=== PATIENT | male | born 1960 | race Caucasian/White ===

== ENCOUNTER 2016-06-24 10:10 | Emergency (ER) | payer OTHER ==
[~2016-06-24] VITALS: Ht 190.5 cm; Wt 100.0 kg
[~2016-06-24 10:10] MED LIST: ASPI81TA82 PO; LISI-360 PO
[2016-06-24 10:11] VITALS: BP 140/78; PULSE 95; RESP 15; TEMP 98.1; O2SAT 97
[2016-06-24] MEDS ORDERED: LISI10TA3 PO (11:16)
[2016-06-24] MEDS ORDERED: NAPR500 PO (11:43)
[2016-06-24] MEDS ORDERED: CEPH-460 PO (11:43)
[2016-06-24] MEDS ORDERED: BACT800T5 PO (11:43)
--- NOTE | 2016-06-24 11:43 | PD ---
HPI Chief Complaint: Skin Problem Time Seen by Provider: 11:41 Travel History International Travel<30 days: No Contact w/Intl Traveler<30days: No Traveled to known affect area: No History of Present Illness HPI 56-year-old male with no significant medical history presents to the emergency department for evaluation of a lesion on the proximal aspect of his dorsal right third digit with associated erythema and edema extending onto the hand. Patient states he noticed this this morning. States it is painful, rates the pain a 7 out of 10. Denies any trauma. Denies IV drug use. Does not recall getting bitten. 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 He is up-to-date on his tetanus vaccination. No fever or chills. No other symptoms to report. PFSH Past Medical History Cardiovascular Problems: Yes (htn) Diminished Hearing: No Hypertension: Yes Integumentary: Yes (PSORIASIS) Tetanus Vaccination: Unknown Past Surgical History Other Surgery: Yes (BILAT. ARTHROSCOPIC BILAT KNEE SURGERIES AND RIGHT HAND SURGERY) Social History Alcohol Use: Yes (occ) Tobacco Use: Yes (1/2 PPD) Substance Use: No Allergies-Medications (Allergen,Severity, Reaction): Coded Allergies: No Known Allergies (Verified , 06/24/16) Reported Meds & Prescriptions Reported Meds & Active Scripts Active Naprosyn (Naproxen) 500 Mg Tab 500 Mg PO BID PRN Keflex (Cephalexin) 500 Mg Cap 500 Mg PO Q6H 5 Days Bactrim DS (Sulfamethoxazole-Trimethoprim) 800-160 Mg Tab 1 Tab PO BID Reported Lisinopril 10 Mg Tab 10 Mg PO DAILY Review of Systems Except as stated in HPI: all other systems reviewed are Neg Physical Exam Narrative GENERAL: Well-nourished male patient, in no acute distress SKIN: Warm and dry. Subcentimeter scabbed lesion on the proximal aspect of the dorsal right third digit. There is erythema extending extending 8 cm proximal onto the dorsal hand. It extends 6 cm wide. There is no fluctuance. HEAD: Atraumatic. Normocephalic. EYES: Pupils equal and round. No scleral icterus. No injection or drainage. ENT: No nasal bleeding or discharge. Mucous membranes pink and moist. NECK: Trachea midline. No JVD. CARDIOVASCULAR: Regular rate and rhythm. No murmur appreciated. RESPIRATORY: No accessory muscle use. Clear to auscultation. Breath sounds equal bilaterally. MUSCULOSKELETAL: No obvious deformities. No clubbing. No cyanosis. Patient has full flexion and extension of the affected digit. He can fully extend the right third digit against resistance as well as flex. NEUROLOGICAL: Awake and alert. No obvious cranial nerve deficits. Motor grossly within normal limits. Normal speech. PSYCHIATRIC: Appropriate mood and affect; insight and judgment normal. Data Data Last Documented VS Vital Signs Date Time Temp Pulse Resp B/P Pulse Ox O2 Delivery O2 Flow Rate FiO2 06/24/16 10:11 98.1 95 15 140/78 97 Orders Ibuprofen (Motrin) (06/24/16 12:00) [facility] Medical Decision Making Medical Screen Exam Complete: Yes Emergency Medical Condition: Yes Medical Record Reviewed: Yes Differential Diagnosis Cellulitis versus abscess versus tenosynovitis versus erysipelas versus insect bite versus local reaction Narrative Course 56-year-old male presents to the emergency department for evaluation of erythema and edema to the right hand. Patient does have what appears to be a scab lesion on the dorsal aspect of the proximal right third digit. Erythema does extend onto the dorsal aspect of the hand. There is no fluctuance. Patient will be started on oral antibiotics. I strongly encouraged him to follow-up with primary care provider. I have counseled him on care and explained to him that hand infections can get that quickly in advised to return immediately with any worsening of symptoms. He agrees with this plan of care. Diagnosis Primary Impression: Cellulitis of right hand Referrals: Hand Surgeon Primary Care Physician Patient Instructions: Cellulitis (ED), General Instructions Departure Forms: Tests/Procedures, Work Release Enter return to work date: Jun 26, 2016 Additional Instructions: Epsom salt soaks 2-3 times a day Follow up with a primary care provider Start antibiotics today and take them until they are all gone elevate to reduce pain and swelling Return immediately to the ED with acute worsening of symptoms Med/Other Pt SpecificInfo: Prescription(s) given Scripts Naproxen (Naprosyn)500 Mg [id number] Mg PO BID PRN (PAIN SCALE 1 TO 10) #30 TAB Ref 0 Prov:Elsa Guerin 06/24/16 Cephalexin (Keflex)500 Mg [id number] Mg PO Q6H 5 Days Ref 0 Prov:Elsa Guerin 06/24/16 Sulfamethoxazole-Trimethoprim (Bactrim DS)800-160 Mg Tab1 Tab PO BID #20 TAB Ref 0 Prov:Elsa Guerin 06/24/16 Disposition: 01 DISCHARGE HOME Condition: Stable Elsa Guerin Jun 24, 2016 11:43
[2016-06-24] MEDS ORDERED: IBUPROFEN 800 MG TAB PO ONE (12:00)
[2016-06-25] MEDS ORDERED: ASPI81CH CHEW (11:50)
== END 2016-06-24 12:27 | disposition home or self-care (01) ==
LOC: NEPB 10:10
DX: L03.113 Cellulitis of right upper limb (principal); I10 Essential (primary) hypertension; F17.210 Nicotine dependence, cigarettes, uncomplicated
CPT/HCPCS: 99282

== ENCOUNTER 2016-06-25 11:30 | Observation (INO) | payer OTHER ==
[~2016-06-25] VITALS: Ht 190.5 cm; Wt 100.0 kg
[~2016-06-25 11:30] MED LIST changes: -ASPI81TA82 PO; +BACT800T5 PO; +CEPH-460 PO; -LISI-360 PO; +LISI10TA3 PO; +NAPR500 PO
[2016-06-25 11:31] VITALS: BP 125/78; PULSE 82; RESP 14; TEMP 97.9; O2SAT 100
[2016-06-25] MEDS ORDERED: ASPI81CH CHEW (11:50)
[2016-06-25] MEDS ORDERED: SODIUM CHLOR 0.9% 1000 ML INJ 1,000 ML IV SCH (12:05)
--- NOTE | 2016-06-25 12:10 | PD ---
HPI Chief Complaint: Skin Problem Time Seen by Provider: 11:58 Travel History International Travel<30 days: No Contact w/Intl Traveler<30days: No Traveled to known affect area: No History of Present Illness HPI [id number] male presents for wound recheck. The patient began developing pain in the right hand yesterday and he was seen here and diagnosed with cellulitis. He was started on Bactrim and Keflex and given an NSAID for pain. He reports that he was up all night with right hand pain and today he has had worsening right hand pain as well as redness and swelling which prompted evaluation. He took the Bactrim and Keflex as prescribed yesterday as well as this morning. No fevers or chills. 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 Last tetanus vaccination 5-6 months ago. No other complaints. PFSH Past Medical History Cardiovascular Problems: Yes (htn) Diminished Hearing: No Hypertension: Yes Integumentary: Yes (PSORIASIS) Tetanus Vaccination: < 5 Years Influenza Vaccination: Yes Past Surgical History Other Surgery: Yes (BILAT. ARTHROSCOPIC BILAT KNEE SURGERIES AND RIGHT HAND SURGERY) Social History Alcohol Use: Yes (occ) Tobacco Use: Yes (1/2 PPD) Substance Use: No Allergies-Medications (Allergen,Severity, Reaction): Coded Allergies: No Known Allergies (Verified , 06/25/16) Reported Meds & Prescriptions Reported Meds & Active Scripts Active Naprosyn (Naproxen) 500 Mg Tab 500 Mg PO BID PRN Keflex (Cephalexin) 500 Mg Cap 500 Mg PO Q6H 5 Days Bactrim DS (Sulfamethoxazole-Trimethoprim) 800-160 Mg Tab 1 Tab PO BID Reported Aspirin 81 Mg Chew 81 Mg CHEW DAILY Lisinopril 10 Mg Tab 10 Mg PO DAILY Review of Systems Except as stated in HPI: all other systems reviewed are Neg Physical Exam Narrative GENERAL: Well-developed well-nourished male in no acute distress SKIN: Warm and dry. Examination of the right hand reveals a pustular lesion on the dorsal aspect of the proximal right third digit. There is surrounding erythema and induration which extends past the marker lines that were drawn yesterday. There is no significant fluctuance. HEAD: Atraumatic. Normocephalic. EYES: Pupils equal and round. No scleral icterus. No injection or drainage. ENT: No nasal bleeding or discharge. Mucous membranes pink and moist. NECK: Trachea midline. No JVD. CARDIOVASCULAR: Regular rate and rhythm. No murmur appreciated. RESPIRATORY: No accessory muscle use. Clear to auscultation. Breath sounds equal bilaterally. GASTROINTESTINAL: Abdomen soft, non-tender, nondistended. Hepatic and splenic margins not palpable. MUSCULOSKELETAL: No obvious deformities. No clubbing. No cyanosis. No edema. NEUROLOGICAL: Awake and alert. No obvious cranial nerve deficits. Motor grossly within normal limits. Normal speech. PSYCHIATRIC: Appropriate mood and affect; insight and judgment normal. Data Data Last Documented VS Vital Signs Date Time Temp Pulse Resp B/P Pulse Ox O2 Delivery O2 Flow Rate FiO2 06/25/16 11:31 97.9 82 14 125/78 100 Room Air Orders Hand, Complete ([id number]) (06/25/16 ) Iv Access Insert/Monitor (06/25/16 12:05) Complete Blood Count With Diff (06/25/16 12:05) Basic Metabolic Panel (Bmp) (06/25/16 12:05) Sodium Chlor 0.9% 1000 Ml Inj (Ns 1000 M (06/25/16 12:05) Wound Culture And Gram Stain (06/25/16 12:05) Vancomycin Inj (Vancomycin Inj) (06/25/16 12:15) Morphine Inj (Morphine Inj) (06/25/16 12:15) Diet Regular Basic (06/25/16 Lunch) Admit Order (Ed Use Only) (06/25/16 13:42) Labs Laboratory Tests Test 06/25/16 12:30 White Blood Count 15.9 TH/MM3 Red Blood Count 5.03 MIL/MM3 Hemoglobin 14.5 GM/DL Hematocrit 42.7 % Mean Corpuscular Volume 84.8 FL Mean Corpuscular Hemoglobin 28.7 PG Mean Corpuscular Hemoglobin 33.9 % Concent Red Cell Distribution Width 13.9 % Platelet Count 302 TH/MM3 Mean Platelet Volume 8.8 FL Neutrophils (%) (Auto) 75.7 % Lymphocytes (%) (Auto) 17.3 % Monocytes (%) (Auto) 5.5 % Eosinophils (%) (Auto) 0.8 % Basophils (%) (Auto) 0.7 % Neutrophils # (Auto) 12.0 TH/MM3 Lymphocytes # (Auto) 2.8 TH/MM3 Monocytes # (Auto) 0.9 TH/MM3 Eosinophils # (Auto) 0.1 TH/MM3 Basophils # (Auto) 0.1 TH/MM3 CBC Comment DIFF FINAL Differential Comment Erythrocyte Sedimentation Rate 1 mm/hr Sodium Level 137 MEQ/L Potassium Level 4.6 MEQ/L Chloride Level 103 MEQ/L Carbon Dioxide Level 26.0 MEQ/L Anion Gap 8 MEQ/L Blood Urea Nitrogen 12 MG/DL Creatinine 1.15 MG/DL Estimat Glomerular Filtration 66 ML/MIN Rate Random Glucose 92 MG/DL Calcium Level 8.4 MG/DL [facility] Medical Decision Making Medical Screen Exam Complete: Yes Emergency Medical Condition: Yes Medical Record Reviewed: Yes Differential Diagnosis Cellulitis failed outpatient therapy, abscess, erysipelas, lymphangitis, tenosynovitis Narrative Course The cellulitis of the dorsal right hand does appear to be worse than yesterday. However The patient has been on antibiotics for only one day. I discussed with the patient the options of either continuing with outpatient therapy to see if there is improvement over the next 24-48 hours versus being admitted for IV antibiotics and observation and the patient would prefer the latter option. Therefore routine x-ray, basic lab work, vancomycin, morphine and fluids have been ordered. The pustular lesion on the dorsal right third finger will be deroofed and a wound culture will be performed. Dr. Jeter the hand surgeon called and requested that the pustular lesion be further incised and drained which the patient consented to. The area was further incised and drained with no significant amount of purulent drainage. Blunt dissection was performed. The wound was thoroughly irrigated. Procedures Procedure Narrative INCISION AND DRAINAGE OF PUSTULE: The area was prepped and was sterilely draped. 1% lidocaine digital block was used to anesthetize the area The area was properly anesthetized. A number 11 scalpel was used to make a 0.5-cm incision across the area of the pustule. Blunt dissection was performed. The wound was irrigated. Gauze was placed on the wound. Diagnosis Primary Impression: Cellulitis of right hand Admitting Information Admitting Physician Requests: Observation Mal Jeter Jun 25, 2016 12:10
[2016-06-25] MEDS ORDERED: MORPHINE SULFATE 4 MG/ML INJ IV PUSH ONE (12:15)
[2016-06-25] MEDS ORDERED: VANCOMYCIN INJ 1,000 MG in SODIUM CHLOR 0.9% 250 ML INJ 250 ML IV ONE (12:15)
[2016-06-25 12:55] LABS: BASOPHIL # 0.1 TH/MM3 (0-0.2); BASOPHIL % 0.7 % (0.0-2.0); EOSINOPHIL # 0.1 TH/MM3 (0-0.4); EOSINOPHIL % 0.8 % (0.0-4.0); HEMATOCRIT 42.7 % (39.0-51.0); HEMO FLAGS DIFF FINAL; LYMPH % 17.3 % (9.0-44.0); LYMPHOCYTE # 2.8 TH/MM3 (1.0-4.8); MEAN CELL VOLUME 84.8 FL (80.0-100.0); MEAN CORPUSCULAR HEMOGLOBIN 28.7 PG (27.0-34.0); MEAN CORPUSCULAR HGB CONC 33.9 % (32.0-36.0); MONO % 5.5 % (0.0-8.0); NEUT % 75.7 % (16.0-70.0); PLATELET COUNT 302 TH/MM3 (150-450); RED BLOOD COUNT 5.03 MIL/MM3 (4.50-5.90); RED CELL DISTRIBUTION WIDTH 13.9 % (11.6-17.2); WHITE BLOOD COUNT 15.9 TH/MM3 (4.0-11.0)
--- NOTE | 2016-06-25 13:04 | RADRPT ---
EXAM DATE/TIME: 06/25/2016 12:44 [facility] COMPARISON: No previous studies available for comparison. INDICATIONS : Right hand swelling and pain at 3-5 metacarpal heads with no known injury. MEDICAL HISTORY : None. SURGICAL HISTORY : None. ENCOUNTER: Initial ACUITY: 1 day PAIN SCORE: 8/10 LOCATION: Right Hand FINDINGS: There are 2 focal areas of increased density seen at the proximal lateral aspect of the fifth proxima l phalanx. These may be related to surgical fasteners in the correct clinical situation. No other pos sible foreign material is seen. The bones and joints are normally aligned. An acute fracture is not s een. There is chronic fragmentation at the ulnar styloid. CONCLUSION: 2 focal areas of increased density likely related to surgical fasteners at the base of the fifth prox imal phalanx. Eric Taylor MD on June 25, 2016 at 12:59 Board Certified Radiologist. This report was verified electronically.
--- NOTE | 2016-06-25 13:09 | PD ---
Data Data Last Documented VS Vital Signs Date Time Temp Pulse Resp B/P Pulse Ox O2 Delivery O2 Flow Rate FiO2 06/25/16 11:31 97.9 82 14 125/78 100 Room Air Orders Hand, Complete ([id number]) (06/25/16 ) Iv Access Insert/Monitor (06/25/16 12:05) Complete Blood Count With Diff (06/25/16 12:05) Basic Metabolic Panel (Bmp) (06/25/16 12:05) Sodium Chlor 0.9% 1000 Ml Inj (Ns 1000 M (06/25/16 12:05) Wound Culture And Gram Stain (06/25/16 12:05) Vancomycin Inj (Vancomycin Inj) (06/25/16 12:15) Morphine Inj (Morphine Inj) (06/25/16 12:15) Diet Regular Basic (06/25/16 Lunch) Labs Laboratory Tests Test 06/25/16 12:30 White Blood Count 15.9 TH/MM3 Red Blood Count 5.03 MIL/MM3 Hemoglobin 14.5 GM/DL Hematocrit 42.7 % Mean Corpuscular Volume 84.8 FL Mean Corpuscular Hemoglobin 28.7 PG Mean Corpuscular Hemoglobin 33.9 % Concent Red Cell Distribution Width 13.9 % Platelet Count 302 TH/MM3 Mean Platelet Volume 8.8 FL Neutrophils (%) (Auto) 75.7 % Lymphocytes (%) (Auto) 17.3 % Monocytes (%) (Auto) 5.5 % Eosinophils (%) (Auto) 0.8 % Basophils (%) (Auto) 0.7 % Neutrophils # (Auto) 12.0 TH/MM3 Lymphocytes # (Auto) 2.8 TH/MM3 Monocytes # (Auto) 0.9 TH/MM3 Eosinophils # (Auto) 0.1 TH/MM3 Basophils # (Auto) 0.1 TH/MM3 CBC Comment DIFF FINAL Differential Comment [facility] Supervised Visit with DAYNE: Yes Narrative Course The history, exam, and medical decision-making in the associated mid-level provider note were completed with my assistance. I reviewed and agree with the findings presented. I attest that I had a [id number] encounter with the patient on the same day, and personally performed and documented my assessment and findings in the medical record. *My assessment and Findings: 56-year-old male referred and cellulitis. Started antibiotics was having worsening of his spread of symptoms. He has been 24 hours. We'll check labs, plan on observation for IV antibiotics. Diagnosis Primary Impression: Cellulitis of right hand Noe Robles MD Jun 25, 2016 13:08
[2016-06-25 13:12] LABS: POTASSIUM 4.6 MEQ/L (3.5-5.1)
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
[2016-06-25] MEDS ORDERED: NALOXONE HCL 0.4 MG/ML AMP IV PRN (15:15)
[2016-06-25] MEDS ORDERED: ACETAMINOPHEN/HYDROcodone 325 MG/5 MG TAB PO PRN (15:15)
[2016-06-25] MEDS ORDERED: ENALAPRILAT 1.25 MG/ML VIAL IV PRN (15:15)
[2016-06-25] MEDS ORDERED: ACETAMINOPHEN 325 MG TAB PO PRN (15:15)
[2016-06-25] MEDS: DOCUSATE SODIUM 100 MG CAP PO SCH ×2 (15:15→21:00)
[2016-06-25] MEDS ORDERED: SODIUM CHLORIDE 0.9% FLUSH 5 ML FLUSH FLUSH PRN (15:15)
[2016-06-25] MEDS ORDERED: Vancomycin Consult Pharmacy 1 EA OTHER SCH (15:15)
[2016-06-25] MEDS ORDERED: ONDANSETRON HCL 4 MG/2 ML VIAL IVP PRN (15:15)
[2016-06-25 15:30] VITALS: BP 139/81; PULSE 79; RESP 20; O2SAT 98
--- NOTE | 2016-06-25 16:33 | HHI.FPPN ---
Subjective Remarks Pt. seen and examined; discussed with Dr. Maldonado. 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 No known trauma. He came to ED and was seen and treated with bactrim DS and keflex and told to return if worse. This a.m. he noted worse swelling and pain, went to work but was sent to ED by his boss as he was unable to function adequately. He noted one area over the 3rd MP joint that drained spontaneously yesterday. He has significant pain, is unable to make a fist. No fever or chills. See H&P for this admission for additional past, family, social history and ROS, which is primarily as noted in HPI. Objective Vitals Vital Signs Date Time Temp Pulse Resp B/P Pulse Ox O2 Delivery O2 Flow Rate FiO2 06/25/16 15:30 79 20 139/81 98 Room Air 06/25/16 11:31 97.9 82 14 125/78 100 Room Air Result Diagram: 06/25/16 1230 06/25/16 1230 Other Results Laboratory Tests Test 06/25/16 12:30 White Blood Count 15.9 TH/MM3 Red Blood Count 5.03 MIL/MM3 Hemoglobin 14.5 GM/DL Hematocrit 42.7 % Mean Corpuscular Volume 84.8 FL Mean Corpuscular Hemoglobin 28.7 PG Mean Corpuscular Hemoglobin 33.9 % Concent Red Cell Distribution Width 13.9 % Platelet Count 302 TH/MM3 Mean Platelet Volume 8.8 FL Neutrophils (%) (Auto) 75.7 % Lymphocytes (%) (Auto) 17.3 % Monocytes (%) (Auto) 5.5 % Eosinophils (%) (Auto) 0.8 % Basophils (%) (Auto) 0.7 % Neutrophils # (Auto) 12.0 TH/MM3 Lymphocytes # (Auto) 2.8 TH/MM3 Monocytes # (Auto) 0.9 TH/MM3 Eosinophils # (Auto) 0.1 TH/MM3 Basophils # (Auto) 0.1 TH/MM3 CBC Comment DIFF FINAL Differential Comment Sodium Level 137 MEQ/L Potassium Level 4.6 MEQ/L Chloride Level 103 MEQ/L Carbon Dioxide Level 26.0 MEQ/L Anion Gap 8 MEQ/L Blood Urea Nitrogen 12 MG/DL Creatinine 1.15 MG/DL Estimat Glomerular Filtration 66 ML/MIN Rate Random Glucose 92 MG/DL Calcium Level 8.4 MG/DL Imaging Last Impressions Hand X-Ray 06/25/16 0000 Signed Impressions: Service Date/Time: Saturday, June 25, 2016 12:44 - CONCLUSION: 2 focal areas of increased density likely related to surgical fasteners at the base of the fifth proximal phalanx. Eric Taylor MD Objective Remarks O. CONSTITUTIONAL/GEN: normally nourished, in NAD. EYES: conjunctiva normal, PERRLA, EOMI. ENT: Mouth and pharynx normal. NECK: thyroid midline, carotids symmetrical. LUNGS: clear A-P, respiratory effort is normal. CARDIOVASCULAR: RR without murmur or gallop. No significant edema. GI/ABD: soft without masses, without organomegaly. : no CVA tenderness NEURO: No focal deficits. Gait is normal SKIN: color normal, no rashes noted. HEME/LYMPH: no bruising, petechia or significant adenopathy MUSC: back is normal in appearance. Right hand: The line drawn around the area of erythema yesterday has been breached--the swelling and erythema and induration have extended well beyond. PSYCH/MENTAL STATUS: Alert and oriented x 3. 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 Case reviewed and discussed with the resident team. Agree with plan of care as discussed with me and documented in the resident note. Ambar Lynn MD Jun 25, 2016 16:33
[2016-06-25] MEDS ORDERED: LIDOCAINE HCL 1% PF 30 ML VIAL INFIL ONE (17:15)
[2016-06-25] MEDS: ACETAMINOPHEN/HYDROcodone 325 MG/10 MG TAB PO PRN ×2 (17:35→23:50)
[2016-06-25 18:30] VITALS: BP 125/74; PULSE 74; RESP 20; O2SAT 97
[2016-06-25] MEDS ORDERED: GADODIAMIDE PF 287 MG/ML 20 ML VIAL (for RAD MRI) IV PUSH ONE (18:30)
[2016-06-25] MEDS: VANCOMYCIN INJ 1,500 MG in SODIUM CHLORID 0.9% 500 ML INJ 500 ML IV SCH (20:59)
[2016-06-25] MEDS ORDERED: SODIUM CHLORIDE 0.9% FLUSH 5 ML FLUSH FLUSH SCH (21:00)
[2016-06-25 21:04] VITALS: BP 114/65; PULSE 87; RESP 21; TEMP 98.7; O2SAT 96
--- NOTE | 2016-06-25 23:28 | RADRPT ---
EXAM DATE/TIME: 06/25/2016 17:57 [facility] COMPARISON: HAND RIGHT COMPLETE ([id number]), June 25, 2016, 12:44. INDICATIONS : Right hand cellulitis. CONTRAST: 20 cc Omniscan (gadodiamide) IV MEDICAL HISTORY : Hypertension. SURGICAL HISTORY : Total knee replacement, left. Total knee replacement, right. Right wrist surgery, sinus surgery. ENCOUNTER: Initial ACUITY: 2 day PAIN SCORE: 2/10 LOCATION: posterior head of 2nd & 3rd metacarpal. TECHNIQUE: Multiplanar, multisequence MRI examination was performed without contrast and after the intravenous a dministration of gadolinium. FINDINGS: Extensive dorsal superficial soft tissue edema of the hand. Mild palmar superficial soft tissue edema at the level of the third and fourth metacarpal heads. Diffuse postcontrast enhancement in the areas of dorsal soft tissue edema. 1.3 x 0.3 cm area of non-enhancement within the enhancing soft tissues dorsal to the long finger proximal phalanx base indicating soft tissue cutaneous ulceration. No organ ized abscess in the soft tissues. No contiguous bone marrow signal abnormality to suggest osteomyelit is. Deformity of the distal fifth metacarpal indicating old fracture. Arthritic changes at the base of th e fifth proximal phalanx. Bone marrow signal is otherwise homogeneous and within normal limits. Small osteophytes at the thumb carpometacarpal joint and metacarpophalangeal joint. All the visualized ten dons are intact. CONCLUSION: Extensive dorsal superficial soft tissue edema and enhancement indicating cellulitis. Cutaneous ulcer ation is seen dorsally at the base of the long finger proximal phalanx. No evidence of osteomyelitis. Bishop aH MD on June 25, 2016 at 23:17 Board Certified Radiologist. This report was verified electronically.
[2016-06-26 00:46] VITALS: BP 127/63; PULSE 87; RESP 21; TEMP 97.8; O2SAT 97
[2016-06-26 03:52] VITALS: BP 112/67; PULSE 78; RESP 18; TEMP 98.7; O2SAT 98
[2016-06-26 05:05] LABS: AUTOMATED NEUTROPHIL # 8.5 TH/MM3 (1.8-7.7); BASOPHIL # 0.1 TH/MM3 (0-0.2); BASOPHIL % 0.6 % (0.0-2.0); EOSINOPHIL # 0.3 TH/MM3 (0-0.4); HEMATOCRIT 37.4 % (39.0-51.0); HEMO FLAGS DIFF FINAL; LYMPH % 25.6 % (9.0-44.0); LYMPHOCYTE # 3.3 TH/MM3 (1.0-4.8); MEAN CELL VOLUME 85.1 FL (80.0-100.0); MEAN CORPUSCULAR HEMOGLOBIN 29.8 PG (27.0-34.0); MONO % 6.2 % (0.0-8.0); NEUT % 65.6 % (16.0-70.0); PLATELET COUNT 274 TH/MM3 (150-450); WHITE BLOOD COUNT 12.9 TH/MM3 (4.0-11.0)
[2016-06-26 05:30] LABS: BICARBONATE 24.5 MEQ/L (21.0-32.0); POTASSIUM 4.6 MEQ/L (3.5-5.1)
[2016-06-26] MEDS: ACETAMINOPHEN/HYDROcodone 325 MG/10 MG TAB PO PRN ×2 (06:05→10:48)
[2016-06-26 08:44] VITALS: BP 104/62; PULSE 64; RESP 18; TEMP 96.9; O2SAT 96
[2016-06-26] MEDS ORDERED: LISINOPRIL 20 MG TAB PO SCH (09:00)
[2016-06-26] MEDS ORDERED: ASPIRIN 81 MG CHEW TAB CHEW SCH (09:00)
[2016-06-26 09:22] VITALS: O2SAT 96
[2016-06-26] MEDS ORDERED: LISI-515 PO (10:08)
[2016-06-26] MEDS ORDERED: HYDR-3516 PO (10:08)
[2016-06-26] MEDS ORDERED: PERI8.6T PO (10:08)
--- NOTE | 2016-06-26 10:09 | HHI.DCPOC ---
Discharge Care Plan Diagnosis: (1) Cellulitis of right hand (2) HTN (hypertension) Goals to Promote Your Health * To prevent worsening of your condition and complications, take medications as prescribed. Directions to Meet Your Goals Take your medications as prescribed Follow your dietary instruction Follow activity as directed Keep your appointments as scheduled Take your immunizations and boosters as scheduled If your symptoms worsen call your PCP, if no PCP go to Urgent Care Center or Emergency Room Smoking is Dangerous to Your Health. Avoid second hand smoke Call the 24-hour hour crisis hotline for domestic abuse at Janet Davidson MD Jun 26, 2016 10:09
[2016-06-26] MEDS: DOCUSATE SODIUM 100 MG CAP PO SCH (10:26)
[2016-06-26] MEDS: VANCOMYCIN INJ 1,500 MG in SODIUM CHLORID 0.9% 500 ML INJ 500 ML IV SCH (10:30)
--- NOTE | 2016-06-26 11:30 | HHI.FPPN ---
Subjective Remarks Patient seen and examined this morning. No acute events overnight. Reports feeling improved. Pain much improved. Reports swelling has gone down and has more movement with his hands. Denies any fever/chills, nausea/vomiting. No chest pain, SOB, abdominal pain, leg pain. States he still has supply of antibiotics, but requesting different pain medications on discharge. Feels safe to go home and continue antibiotics. (Issac Valdes MD R1) Objective Vitals Vital Signs Date Time Temp Pulse Resp B/P Pulse Ox O2 Delivery O2 Flow Rate FiO2 06/26/16 09:22 96 21 06/26/16 08:44 96.9 64 18 104/62 96 06/26/16 07:05 20 06/26/16 03:52 98.7 78 18 112/67 98 06/26/16 00:46 97.8 87 21 127/63 97 06/25/16 21:04 98.7 87 21 114/65 96 06/25/16 18:30 74 20 125/74 97 Room Air 06/25/16 15:30 79 20 139/81 98 Room Air 06/25/16 11:31 97.9 82 14 125/78 100 Room Air (Issac Valdes MD R1) Result Diagram: 06/26/16 03306/26/16336 Objective Remarks O. CONSTITUTIONAL/GEN: normally nourished, in NAD. LUNGS: clear A-P, respiratory effort is normal. CARDIOVASCULAR: RR without murmur or gallop. No significant edema. GI/ABD: soft without masses, without organomegaly. NEURO: No focal deficits. Gait is normal HEME/LYMPH: no bruising, petechia or significant adenopathy MUSC: back is normal in appearance. Right hand: Improved erythema and swelling. Pt able to almost make a fist. Redness resolved to area in demarcation. PSYCH/MENTAL STATUS: Alert and oriented x 3. (Issac Valdes MD R1) A/P Assessment and Plan 56-year-old male PMH significant for HTN. Admitted for right hand cellulitis Discharge Planning Today (Issac Valdes MD R1) Attending Attestation Patient seen and examined. Case reviewed and discussed with the resident team. Agree with plan of care as discussed with me and documented in the resident note. (Ambar Lynn MD) Problem List: (1) Cellulitis of right hand Status: Acute Plan: Worsening right hand cellulitis over the last 2 days despite treatment with Keflex and Bactrim. Located over the MCP joints. No systemic symptoms. -Leukocytosis without left shiftile. -ESR unremarkable -Wound culture: rare WBC, rare Gram + cocci -Cancelled hand surgery consult, due to no signs of osteo. No surgery required Imaging: * Hand x-ray: 2 focal areas of increased density likely related to surgical fasteners at the base of the fifth proximal phalanx. * MRI ordered: Extensive dorsal superficial soft tissue edema and enhancement suggesting cellulitis. No evidence of osteomyelitis. Medications: * Vancomycin (06/25-06/26) * Will discharge to continue his home Bactrim & Keflex for 10 days total (2) HTN (hypertension) Status: Acute Plan: Continue home lisinopril 20 mg daily (3) Nutrition, metabolism, and development symptoms Status: Acute Plan: Diet: Regular Electrolytes: Unremarkable Fluids: None DVT prophylaxis: SCDs GI prophylaxis: None indicated (Issac Valdes MD R1) Problem Qualifiers (1) HTN (hypertension): Qualified Code: I10 - Essential hypertension Issac Valdes MD R1 Jun 26, 2016 11:30 Ambar Lynn MD Jun 26, 2016 12:02
[2016-06-27] MEDS ORDERED: PHARMACY ORDERED LAB XX ONE (08:45)
== END 2016-06-26 14:19 | disposition home or self-care (01) ==
LOC: NEPB 11:30 → NEDA 13:43 → NEPFCDU 20:02
PROVIDERS: ADMIT Family Medicine; ATTEND Family Medicine
DX: L03.113 Cellulitis of right upper limb (principal); I10 Essential (primary) hypertension; L40.9 Psoriasis, unspecified; F41.9 Anxiety disorder, unspecified; F17.200 Nicotine dependence, unspecified, uncomplicated; Z79.82 Long term (current) use of aspirin
CPT/HCPCS: 10160; 73130; 73220; 80048; 85025; 85652; 86403; 87070; 87186; 87205; 96361; 96365; 96375; 99284; A9579; G0378; J2270; J3370; J7030; J7040; J7050

== ENCOUNTER 2016-08-16 12:10 | Emergency (ER) | payer OTHER ==
[~2016-08-16] VITALS: Ht 190.5 cm; Wt 98.0 kg
[~2016-08-16 12:10] MED LIST changes: +ASPI81CH CHEW; +HYDR-3516 PO; +LISI-515 PO; -LISI10TA3 PO; +PERI8.6T PO
[2016-08-16 12:13] VITALS: BP 154/82; PULSE 92; RESP 20; TEMP 97.5; O2SAT 100
--- NOTE | 2016-08-16 12:21 | PD ---
Physical Exam Date Seen by Provider: August 16, 2016 Time Seen by Provider: 12:18 Narrative 56 year old male presents to the emergency department for evaluation of right shoulder injury that occurred this morning after moving a heavy dresser. He states he felt a pop in the right shoulder after the dresser slipped. Patient reports previous right shoulder injury. Vital signs reviewed. Patient seen in triage, awaiting bed placement. Data Data Last Documented VS Vital Signs Date Time Temp Pulse Resp B/P Pulse Ox O2 Delivery O2 Flow Rate FiO2 08/16/16 12:13 97.5 92 20 154/82 100 Room Air [facility] Supervised Visit with DAYNE: Ruthie Ocampo August 16, 2016 12:21
[2016-08-16] MEDS ORDERED: LISI10TA3 PO (12:27)
[2016-08-16] MEDS ORDERED: KETOROLAC TROMETHAMINE 60 MG/2 ML (IM) VIAL IM ONE (12:30)
[2016-08-16] MEDS ORDERED: ORPHENADRINE INJ 60 MG/2 ML AMP IM ONE (12:30)
[2016-08-16] MEDS ORDERED: CYCL1TAB29 PO (12:40)
[2016-08-16] MEDS ORDERED: IBUP800T23 PO (12:40)
--- NOTE | 2016-08-16 12:41 | PD ---
HPI Chief Complaint: Injury Time Seen by Provider: 12:36 Travel History International Travel<30 days: No Contact w/Intl Traveler<30days: No Traveled to known affect area: No History of Present Illness HPI 56-year-old male presents to the emergency Department with complaint of right shoulder pain after lifting a dresser today and feeling a "pop." Reports severe pain. Reports paresthesias to right hand but denies loss of sensation. Says he can move the shoulder but it causes severe pain. Denies fever, vomiting. Took Tylenol prior to arrival. Pain is worse constant and is worse with movement and palpation. No known relieving factors. History of hypertension. No other medical complaints. No other modifying factors or associated signs and symptoms. PFSH Past Medical History Cardiovascular Problems: Yes (htn) Diminished Hearing: No Hypertension: Yes Integumentary: Yes (PSORIASIS) Past Surgical History Other Surgery: Yes (BILAT. ARTHROSCOPIC BILAT KNEE SURGERIES AND RIGHT HAND SURGERY) Social History Alcohol Use: Yes (occ) Tobacco Use: Yes ( PPD) Substance Use: No Allergies-Medications (Allergen,Severity, Reaction): Coded Allergies: *MDRO Multi-Drug Resistant Organism (Verified Adverse Reaction, Unknown, ) MRSA (hand)-06/25/16 Reported Meds & Prescriptions Reported Meds & Active Scripts Active Flexeril (Cyclobenzaprine HCl) 10 Mg Tab 10 Mg PO TID PRN Ibuprofen 800 Mg Tab 800 Mg PO Q6HR PRN Reported Lisinopril 10 Mg Tab 10 Mg PO DAILY Review of Systems Except as stated in HPI: all other systems reviewed are Neg Physical Exam Narrative GENERAL: Well-nourished, well-developed male patient, in no acute distress SKIN: Warm and dry. HEAD: Atraumatic. Normocephalic. EYES: Pupils equal and round. No scleral icterus. No injection or drainage. ENT: Mucosa pink and moist. Airway patent. NECK: Supple. Trachea midline. CARDIOVASCULAR: Regular rate. RESPIRATORY: No accessory muscle use. GASTROINTESTINAL: Rounded. MUSCULOSKELETAL: Right shoulder is without erythema, edema, ecchymosis; with point tenderness to the anterior aspect; unable to assess range of motion secondary to patient guarding and pain; shoulders equal; no obvious deformity; joint stable. Right upper extremity supple and nontender. 2+ radial pulses and sensory intact without erythema or edema. No obvious deformities. No clubbing. No cyanosis. No edema. NEUROLOGICAL: Awake and alert. Oriented 3. No obvious cranial nerve deficits. Motor grossly within normal limits. Normal speech. PSYCHIATRIC: Appropriate mood and affect; insight and judgment normal. Data Data Last Documented VS Vital Signs Date Time Temp Pulse Resp B/P Pulse Ox O2 Delivery O2 Flow Rate FiO2 08/16/16 12:13 97.5 92 20 154/82 100 Room Air Orders Ketorolac Inj (Toradol Inj) (08/16/16 12:30) Shoulder, Complete (>2vws) (08/16/16 12:28) Ice/Cold Pack (08/16/16 12:28) Sling Cradle Arm (08/16/16 ) Orphenadrine Inj (Norflex Inj) (08/16/16 12:30) MDM Medical Decision Making Medical Screen Exam Complete: Yes Emergency Medical Condition: Yes Medical Record Reviewed: Yes Differential Diagnosis Rotator cuff tear, joint separation, less likely fracture or dislocation Narrative Course 56-year-old male with right shoulder injury. Toradol, Norflex administered in the ER. Right shoulder x-ray ordered. 1312: Right shoulder x-ray with no acute findings. Arm sling provided for support. Instructed patient to follow up with orthopedist. Ibuprofen and Flexeril prescribed for home. X-ray report provided to patient. Patient verbalizes understanding and agreement with treatment plan. Patient is medically cleared and stable for discharge. Discussed reasons to return to the emergency department. Instructed patient to follow up with primary care provider. Patient agrees with treatment plan. The patients vital signs are stable and the patient is stable for outpatient follow-up and treatment. Patient discharged home, stable and in no acute distress. Diagnosis Primary Impression: Right shoulder injury Qualified Code: S49.91XA - Right shoulder injury, initial encounter Referrals: Orthopedist Primary Care Physician Patient Instructions: General Instructions Departure Forms: Tests/Procedures, Work Release Enter return to work date: August 25, 2016 Additional Instructions: Tylenol or ibuprofen as needed and as directed to reduce pain and inflammation Rest, ice, and compress extremity to decrease pain and inflammation Arm sling for support, as needed Avoid aggravating activity; increase activity as tolerated Follow-up with primary care provider Follow-up with orthopedics Return to the emergency department immediately with worsening symptoms Med/Other Pt SpecificInfo: Prescription(s) given Scripts Cyclobenzaprine (Flexeril)10 Mg Tab10 Mg PO TID PRN (MUSCLE SPASM) #30 TAB Ref 0 Prov:Maylin Del Real 08/16/16 Ibuprofen 800 Mg [id number] Mg PO Q6HR PRN (PAIN) #30 TAB Ref 0 Prov:Maylin Del Real 08/16/16 Disposition: 01 DISCHARGE HOME Condition: Stable Maylin Del Real August 16, 2016 12:41
--- NOTE | 2016-08-16 13:01 | RADRPT ---
EXAM DATE/TIME: 08/16/2016 12:45 [facility] COMPARISON: No previous studies available for comparison. INDICATIONS : Right shoulder pain after moving a dresser. Patient heard a popping sound. MEDICAL HISTORY : None. SURGICAL HISTORY : None. ENCOUNTER: Initial ACUITY: 1 day PAIN SCORE: 10/10 LOCATION: Right shoulder. FINDINGS: Multiple view examination of the right shoulder demonstrates no evidence of fracture or dislocation. The glenohumeral and acromioclavicular joints are maintained. There is normal range of motion betwe en internal and external rotation. Bony mineralization is normal. CONCLUSION: Negative trauma study. Mayank Broussard MD on August 16, 2016 at 12:59 Board Certified Radiologist. This report was verified electronically.
== END 2016-08-16 13:29 | disposition home or self-care (01) ==
LOC: NEPK 12:10
DX: S49.91XA Unspecified injury of right shoulder and upper arm, initial encounter (principal); F17.210 Nicotine dependence, cigarettes, uncomplicated; X50.0XXA Overexertion from strenuous movement or load, initial encounter; Y93.89 Activity, other specified; Y92.89 Other specified places as the place of occurrence of the external cause; Y99.8 Other external cause status
CPT/HCPCS: 73030; 96372; 99283; J1885; J2360

== ENCOUNTER 2016-10-03 15:24 | Emergency (ER) | payer SELFPAY ==
[~2016-10-03] VITALS: Ht 190.5 cm; Wt 97.0 kg
[~2016-10-03 15:24] MED LIST changes: -ASPI81CH CHEW; -BACT800T5 PO; -CEPH-460 PO; +CYCL1TAB29 PO; -HYDR-3516 PO; +IBUP800T23 PO; -LISI-515 PO; +LISI10TA3 PO; -NAPR500 PO; -PERI8.6T PO
[2016-10-03 15:26] VITALS: BP 109/69; PULSE 8; PULSE 88; RESP 20; TEMP 98.2; O2SAT 98
--- NOTE | 2016-10-03 15:41 | PD ---
HPI Chief Complaint: Bite or Sting Time Seen by Provider: 15:41 Travel History International Travel<30 days: No Contact w/Intl Traveler<30days: No Traveled to known affect area: No History of Present Illness HPI 56-year-old male with history of MRSA in the past presents to the emergency Department with question spider bite to the right medial knee. Patient states he noticed this yesterday with small area of erythema which was itchy at first. Tonight the patient states he woke up with increased pain, erythema, and swelling with a localized small area of pus in the center. Patient has a history of similar lesion on his hand 3 years ago for which he was hospitalized. He has a history of MRSA. Patient states the pain currently as 9/10. He is been taking ibuprofen without much relief. He is currently somewhat nauseous from the pain. He has no known drug allergies. PFSH Past Medical History Hx Anticoagulant Therapy: No Cardiovascular Problems: No Chemotherapy: No Cerebrovascular Accident: No Diabetes: No Diminished Hearing: No Hypertension: Yes Respiratory: No Integumentary: Yes (PSORIASIS) ?: Not Past Surgical History Hysterectomy: No Other Surgery: Yes (BILAT. ARTHROSCOPIC BILAT KNEE SURGERIES AND RIGHT HAND SURGERY) Social History Alcohol Use: Yes (occ) Tobacco Use: Yes ( PPD) Substance Use: No Allergies-Medications (Allergen,Severity, Reaction): Coded Allergies: *MDRO Multi-Drug Resistant Organism (Verified Adverse Reaction, Unknown, ) MRSA (hand)-06/25/16 Reported Meds & Prescriptions Reported Meds & Active Scripts Active Flexeril (Cyclobenzaprine HCl) 10 Mg Tab 10 Mg PO TID PRN Ibuprofen 800 Mg Tab 800 Mg PO Q6HR PRN Reported Lisinopril 10 Mg Tab 10 Mg PO DAILY Review of Systems Except as stated in HPI: all other systems reviewed are Neg General / Constitutional: No: Fever Eyes: No: Visual changes HENT: No: Headaches Cardiovascular: No: Chest Pain or Discomfort Respiratory: No: Shortness of Breath Gastrointestinal: No: Abdominal Pain Genitourinary: No: Dysuria Musculoskeletal: No: Pain Skin: Positive Lesions, No Rash Neurologic: No: Weakness Psychiatric: No: Depression Endocrine: No: Polydipsia Hematologic/Lymphatic: No: Easy Bruising Physical Exam Narrative GENERAL: Patient appears in mild to moderate distress. SKIN: Warm and dry. Normal color. Normal turgor. Patient has a 4 cm diameter erythematous indurated area to the right medial knee with small 2 mm central bubble of pus. There does not appear to be a deep abscess or involvement of the knee joint itself. HEAD: Atraumatic. Normocephalic. EYES: Pupils equal and round. No scleral icterus. No injection or drainage. ENT: No nasal bleeding or discharge. Mucous membranes pink and moist. Pharynx is clear. Airway is patent. NECK: Trachea midline. Supple nontender. CARDIOVASCULAR: Regular rate and rhythm. RESPIRATORY: No accessory muscle use. Clear to auscultation. Breath sounds equal bilaterally. MUSCULOSKELETAL: Extremities without clubbing, cyanosis, or edema. No obvious deformities. NEUROLOGICAL: Awake and alert. No obvious cranial nerve deficits. Motor grossly within normal limits. Five out of 5 muscle strength in the arms and legs. Normal speech. PSYCHIATRIC: Appropriate mood and affect; insight and judgment normal. Data Data Last Documented VS Vital Signs Date Time Temp Pulse Resp B/P Pulse Ox O2 Delivery O2 Flow Rate FiO2 10/03/16 15:26 98.2 88 20 109/69 98 Room Air Orders Sulfamet-Trimeth Ds 800-160 Mg (Bactrim (10/03/16 16:00) Ondansetron Odt (Zofran Odt) (10/03/16 16:00) Ketorolac Inj (Toradol Inj) (10/03/16 16:00) Wound Culture And Gram Stain (10/03/16 15:53) MDM Medical Decision Making Medical Screen Exam Complete: Yes Emergency Medical Condition: Yes Medical Record Reviewed: Yes Differential Diagnosis Insect bite. Cellulitis. MRSA. Narrative Course Patient is medically stable at time of exam. Patient does not appear septic at this time. The small area of pus is lanced with a #15 blade and pus is collected on a swab for culture. Patient is given his first dose of Bactrim DS by mouth. Patient is given Toradol 60 mg IM Patient is given Zofran 4 mg ODT by mouth. Patient is to stay off his legs and elevate and take Bactrim DS twice a day 7 days. Patient is given a prescription for ibuprofen 800 mg 3 times daily with food. Patient also given acetaminophen 500 mg 2 tabs every 6 hours when necessary pain. Patient should use warm compresses to the area frequently. Patient should follow up if symptoms do not improve or worsen Diagnosis Primary Impression: Cellulitis of right knee Additional Impression: MRSA (methicillin resistant Staphylococcus aureus) Referrals: [facility] Primary Care Physician Patient Instructions: Cellulitis (DC), General Instructions, MRSA (Methicillin Resistant Staphylococcus Aureus) (ED) Additional Instructions: The small area of pus is lanced with a #15 blade and pus is collected on a swab for culture. Patient is given his first dose of Bactrim DS by mouth. Patient is given Toradol 60 mg IM Patient is given Zofran 4 mg ODT by mouth. Patient is to stay off his legs and elevate and take Bactrim DS twice a day 7 days. Patient is given a prescription for ibuprofen 800 mg 3 times daily with food. Patient also given acetaminophen 500 mg 2 tabs every 6 hours when necessary pain. Patient should use warm compresses to the area frequently. Patient should follow up if symptoms do not improve or worsen Med/Other Pt SpecificInfo: Prescription(s) given Disposition: 01 DISCHARGE HOME Condition: Stable Aniceto Craig Oct 03, 2016 15:41
[2016-10-03] MEDS ORDERED: SULFAMETHOXAZOLE-TRIMETHOPRIM DS 800-160 MG TAB PO ONE (16:00)
[2016-10-03] MEDS ORDERED: ONDANSETRON ODT 4 MG TAB PO ONE (16:00)
[2016-10-03] MEDS ORDERED: KETOROLAC TROMETHAMINE 60 MG/2 ML (IM) VIAL IM ONE (16:00)
[2016-10-03] MEDS ORDERED: IBUP-232 PO (16:02)
[2016-10-03] MEDS ORDERED: NON-500T13 PO (16:02)
[2016-10-03] MEDS ORDERED: BACT800T5 PO (16:02)
[2016-10-03] MEDS ORDERED: MUPI2%T TOPICAL (16:02)
== END 2016-10-03 16:29 | disposition home or self-care (01) ==
LOC: NEPK 15:24
DX: L03.115 Cellulitis of right lower limb (principal); B95.62 Methicillin resistant Staphylococcus aureus infection as the cause of diseases classified elsewhere; R11.0 Nausea; I10 Essential (primary) hypertension; Z72.0 Tobacco use; Z87.2 Personal history of diseases of the skin and subcutaneous tissue; Z86.14 Personal history of Methicillin resistant Staphylococcus aureus infection
CPT/HCPCS: 86403; 87070; 87186; 96372; 99284; J1885; 87205

== ENCOUNTER 2016-10-04 11:19 | Emergency (ER) | payer SELFPAY ==
[~2016-10-04] VITALS: Ht 190.5 cm; Wt 97.0 kg
[~2016-10-04 11:19] MED LIST changes: +BACT800T5 PO; +IBUP-232 PO; +MUPI2%T TOPICAL; +NON-500T13 PO
--- NOTE | 2016-10-04 11:45 | PD ---
HPI . pain of right knee due to insect bite Chief Complaint: Skin Problem Time Seen by Provider: 11:45 Travel History International Travel<30 days: No Contact w/Intl Traveler<30days: No Traveled to known affect area: No History of Present Illness HPI 56-year-old male who was recently seen yesterday for right knee cellulitis ( superficial) and given antibiotics and anti-inflammatories here with worsening pain of the knee. Patient tells me that he needs something stronger than ibuprofen. He says that he is unable to walk because of the pain in his right knee. He denies any fever or chills. He has no other complaints. PFSH Past Medical History Hx Anticoagulant Therapy: No Cardiovascular Problems: No Chemotherapy: No Cerebrovascular Accident: No Diabetes: No Diminished Hearing: No Hypertension: Yes Respiratory: No Integumentary: Yes (PSORIASIS) Past Surgical History Hysterectomy: No Other Surgery: Yes (BILAT. ARTHROSCOPIC BILAT KNEE SURGERIES AND RIGHT HAND SURGERY, sinus surg) Social History Alcohol Use: Yes (occ) Tobacco Use: Yes ( PPD) Substance Use: No Allergies-Medications (Allergen,Severity, Reaction): Coded Allergies: *MDRO Multi-Drug Resistant Organism (Verified Adverse Reaction, Unknown, ) MRSA (hand)-06/25/16 Reported Meds & Prescriptions Reported Meds & Active Scripts Active Ibuprofen 600 Mg Tab 600 Mg PO Q6H PRN Bactroban Topical (Mupirocin) 22 Gm Cream 1 Applic TOPICAL BID Bactrim DS (Sulfamethoxazole-Trimethoprim) 800-160 Mg Tab 1 Tab PO BID Non-Aspirin Pain Relief ES (Acetaminophen) 500 Mg Tab 500 Mg PO Q6HR PRN Reported Lisinopril 10 Mg Tab 10 Mg PO DAILY Review of Systems General / Constitutional: No: Fever Eyes: No: Visual changes HENT: No: Headaches Cardiovascular: No: Chest Pain or Discomfort Respiratory: No: Shortness of Breath Gastrointestinal: No: Abdominal Pain Genitourinary: No: Dysuria Musculoskeletal: No: Pain Skin: Positive Other (right knee small pustule ), No Rash Neurologic: No: Weakness Psychiatric: No: Depression Endocrine: No: Polydipsia Hematologic/Lymphatic: No: Easy Bruising Physical Exam Narrative GENERAL: AAO x 3, no acute distress, Well-nourished, well-developed patient. SKIN: Warm and dry. No visible rashes or bruising. Right knee with a small pustule measuring 3 mm well-circumscribed, surrounded by a zone of inflammation measuring approximately 1 cm. Very minimal warmth, mild erythema no significant edema. There is no streaking or visible drainage. HEAD: Normocephalic and atraumatic. EYES: No scleral icterus. No injection or drainage. EOM intact, PERRLA ENT: No nasal drainage noted. Mucous membranes pink. Airway patent. NECK: Supple, trachea midline. No JVD. CARDIOVASCULAR: Regular rate and rhythm without murmurs, gallops, or rubs. RESPIRATORY: Breath sounds equal bilaterally. No accessory muscle use. No rhonchi or rales. GASTROINTESTINAL: Visual inspection normal EXTREMITIES: No cyanosis or edema. Patient is ambulatory and was walked around the emergency department. No gait disturbance BACK: Nontender without obvious deformity. No CVA tenderness. NEURO: CN II-12 intact PSYCH: AAO x 3, normal affect. Data Data Last Documented VS Vital Signs Date Time Temp Pulse Resp B/P Pulse Ox O2 Delivery O2 Flow Rate FiO2 10/04/16 11:47 98.0 85 20 137/66 97 Room Air MDM Medical Decision Making Medical Screen Exam Complete: Yes Emergency Medical Condition: Yes Medical Record Reviewed: Yes Differential Diagnosis Right knee pain, right knee cellulitis, insect bite, Narrative Course 56-year-old male here with knee pain secondary right knee cellulitis. He has a very mild cellulitis/insect bite on his right knee. He is afebrile. No signs of sepsis. The area seems to be responding well to antibiotics. The infection is very superficial. I've offered patient Toradol here in the emergency department and he tells me, "I need something stronger for home. I don't want anything in here." I recommend continuation of his antibiotics. I advised him to return to the emergency department if any worsening signs of infection, which were discussed. I explained to patient that I do not feel any stronger narcotic pain med is indicated for this mild infection. I offered crutches and he declines because he tells me he is able to walk. I advised him to follow-up with his outpatient primary care provider. Diagnosis Primary Impression: Cellulitis of right knee Additional Impression: Insect bite Qualified Code: W57.XXXA - Insect bite, initial encounter Patient Instructions: General Instructions Departure Forms: Tests/Procedures, Work Release Enter return to work date: Oct 05, 2016 Additional Instructions: Continue your antibiotics as this will help treat the infection and get rid of it. Use [id number] Tylenol or Motrin as needed for pain. Jack for worsening signs of infection which include fever, increased redness , increased warmth, purulent drainage, increased swelling or streaking. If any of these develop, please go to the nearest emergency room. Med/Other Pt SpecificInfo: No Change to Meds Disposition: 01 DISCHARGE HOME Condition: Stable Karen Zurita Oct 04, 2016 11:45
[2016-10-04 11:47] VITALS: BP 137/66; PULSE 85; RESP 20; TEMP 98; O2SAT 97
== END 2016-10-04 11:59 | disposition home or self-care (01) ==
LOC: NEPC 11:19
DX: L03.115 Cellulitis of right lower limb (principal); I10 Essential (primary) hypertension; F17.200 Nicotine dependence, unspecified, uncomplicated; Z79.899 Other long term (current) drug therapy
CPT/HCPCS: 99282

== ENCOUNTER 2018-01-06 12:21 | Inpatient (IN) ==
[2018-01-06] MEDS ORDERED: Morphine Inj 4 MG/ML Vial IV.PUSH ONE (13:08)
[2018-01-06] MEDS ORDERED: Sod Chloride 0.9% Inj 1,000 ML IV.SIG SCH (13:15)
--- NOTE | 2018-01-06 13:15 | ED ---
HPI General Chief Complaint: Fall Stated Complaint: Fall/R arm pain Time Seen by Provider: 01/06/18 12:57 Source: patient Mode of arrival: ambulatory Limitations: no limitations History of Present Illness HPI Narrative: Patient is a 57-year-old male presenting to [facility] for evaluation of right arm pain after he sustained a fall yesterday. Patient states he was trimming trees in his yard, he was on a ladder that was approximately 30 feet tall and he reports falling about 20 feet. He states his neighbor saw him fall and ran over to help him. He denies any prolonged downtime. He denies any loss of consciousness. He presents complaining of pain in his right arm, he states he is swelling just distal to the shoulder. He reports feeling dizzy when he changes positions. He denies any vomiting, chest pain, shortness of breath, abdominal pain. He has a history of chronic back pain, he reports no new back pain. He denies any numbness or weakness in his extremities. Symptom onset was sudden, symptoms are moderate nature. Patient appears distracted by the injury to his right arm. Patient reports the pain an 8 out of 10, constant, aching and throbbing, no alleviating factors, worse with movement. complaint: fall Onset (ago): day(s) (1) Fall from: from height (distance) (20) Fall witnessed: yes, by bystander Place fall occurred: home Loss of consciousness: none Prolonged down time: unclear Symptoms prior to fall: none Context: other (fell off ladder trimming tree's) Location of injury: back Location of injury - extremities: Right: shoulder and arm Severity scale (1-10): 8 Quality: aching and tingling Associated symptoms (after fall): lightheaded Related Data Home Medications Medication Instructions Recorded Confirmed hydrocodone-acetaminophen 1 tab PO Q4-6H PRN 11/19/17 01/06/18 lisinopril 10 mg PO DAILY 11/19/17 01/06/18 carisoprodol [Soma] 350 mg PO BID 01/06/18 01/06/18 levetiracetam [Keppra] 500 mg PO BID 01/06/18 01/06/18 Allergies Allergy/AdvReac Type Severity Reaction Status Date / Time *MDRO Multi-Drug Resistant AdvReac Unknown MRSA Uncoded 01/06/18 13:35 Organism Review of Systems ROS: all other systems reviewed are negative [facility] Medical History Medical History HTN (hypertension) (Chronic) Rheumatoid arthritis (Chronic) Surgical History Surgical History History of sinus surgery (Acute) Hx of knee surgery (Acute) Family History Family History Mother CAD (coronary artery disease) Father CAD (coronary artery disease) Social History Social History Substance History: No History of Abuse Second Hand Smoke Exposure: No Smoking Status: Heavy tobacco smoker Tobacco Type: Cigarettes How Often Do You Have a Drink Containing Alcohol: 2 to 4 times a month Recent Travel in [facility] within the Last 8 Weeks: No Recent Out of Country Travel within the Last 8 Weeks: No Exam Narrative Exam Narrative: GENERAL: Well-developed, well-nourished, well-appearing male. Presenting in no acute distress. SKIN: Focused skin assessment warm/dry. Swelling noted to the right upper arm. Approximately 3 cm in diameter. Superficial abrasions noted to bilateral knees. HEAD: Atraumatic. Normocephalic. EYES: Pupils equal and round. No scleral icterus. No injection or drainage. ENT: No nasal bleeding or discharge. Mucous membranes pink and moist. NECK: Trachea midline. No JVD. No cervical spine tenderness or step-off noted. Full range of motion with flexion, extension and rotation. CARDIOVASCULAR: Regular rate and rhythm. No murmur appreciated. Intact distal pulses. RESPIRATORY: No accessory muscle use. Clear to auscultation. Breath sounds equal bilaterally. GASTROINTESTINAL: Abdomen soft, non-tender, nondistended. Hepatic and splenic margins not palpable. Positive bowel sounds, no rebound, no guarding. MUSCULOSKELETAL: No obvious deformities. No clubbing. No cyanosis. No edema. NEUROLOGICAL: Awake and alert. No obvious cranial nerve deficits. Motor grossly within normal limits. Normal speech. Tenderness to palpation to lower lumbar spine. PSYCHIATRIC: Appropriate mood and affect; insight and judgment normal. Course Initial Documented Vital Signs Temperature 98.6 F 01/06/18 12:47 Pulse Rate 83 01/06/18 12:47 Respiratory Rate 18 01/06/18 12:47 Blood Pressure 111/73 01/06/18 12:47 Pulse Oximetry 100 01/06/18 12:47 Last Documented Vital Signs Temperature 97.9 F 01/08/18 04:00 Pulse Rate 46 L 01/08/18 04:00 Respiratory Rate 14 01/08/18 06:22 Blood Pressure 136/73 01/08/18 04:00 Pulse Oximetry 97 01/08/18 08:00 Medical Decision Making DAYNE Attestation DAYNE supervised visit: Yes Attestation: I, Dr. Parker, have reviewed the advance practice practitioner's documentation and am in agreement, met with the patient face to face, made the diagnosis, and the medical decision making was done by me. *My assessment and Findings: Patient is a 57-year-old male who presents after a fall. CT of the cervical spine, chest, abdomen, pelvis were unremarkable. CT of the head did show a hypodensity concerning for subacute infarct. Patient does report some difficulty with memory over the last several weeks and states he was previously told he had a "spot" on his brain when he had a previous seizure. We discussed the results of the CT of the head with Dr. Mari, neurologist on-call, in addition to Dr. Mensah, hospitalist on-call, who agreed to admission and further evaluation with MRI. MDM Narrative Medical decision making narrative: Patient is a 57-year-old male presenting for evaluation after a fall that occurred yesterday. Patient is preoccupied with the injury to his right arm, adan scans ordered due to the nature and the height of his fall. Patient was given morphine and Zofran for pain. Labs reviewed, no acute findings identified. CT scan of the brain shows 3.7x1.7 cm hypodensity with mild associated mass-effect on the right lateral ventricle, favors subacute infarct, discussed with Dr. Mari who then suggested MRI of the brain w/ and w/o contrast. CT scan of the cervical spine, chest, abdomen and pelvis, lumbar, thoracic spine show no acute findings. Discussed findings with patient, he stated that he had a seizure 3 months ago, this was the first seizure he is ever experienced. He was at [facility] in [facility], he states that they told him the seizure was from an infection. He also reported that he was told he a spot on his brain that should improve? Pt reports now that he has been having memory issues and feels that he searches for words. He denies any other deficits. Discussed with Dr Mensah, pt admitted and is agreeable. Medical records requested. Pt given [place] for the pain in his right arm. Medical Screen Exam Complete: Yes Emergency Medical Condition: Yes Differential Diagnosis Differential Diagnosis: Fracture versus sprain versus strain versus contusion versus hemorrhage versus other Medical Records Medical records reviewed: Yes I reviewed the patient's medical records. Lab Data Lab results reviewed: Yes I reviewed the patient's lab results. Result diagrams: 01/07/18 06:55 01/07/18 06:55 Lab Results 01/06/18 01/06/18 01/06/18 Range/Units 13:20 13:20 14:03 WBC 10.1 (4.0-11.0) th/mm3 RBC 4.69 (4.50-5.90) mil/mm3 Hgb 13.6 (13.0-17.0) gm/dL Hct 40.5 (39.0-51.0) % MCV 86.4 (80.0-100.0) fL MCH 29.0 (27.0-34.0) pg MCHC 33.6 (32.0-36.0) % RDW 13.8 (11.6-17.2) % Plt Count 308 (150-450) th/mm3 MPV 9.0 (7.0-11.0) fL Neut % (Auto) 62.1 (16.0-70.0) % Lymph % (Auto) 29.8 (9.0-44.0) % [place] % (Auto) 5.5 (0.0-8.0) % Eos % (Auto) 1.8 (0.0-4.0) % Baso % (Auto) 0.8 (0.0-2.0) % Neut # (Auto) 6.3 (1.8-7.7) th/mm3 Lymph # (Auto) 3.0 (1.0-4.8) th/mm3 [place] # (Auto) 0.6 (0.0-0.9) th/mm3 Eos # (Auto) 0.2 (0.0-0.4) th/mm3 Baso # (Auto) 0.1 (0.0-0.2) th/mm3 WBC Differential . Differential Comment Auto diff final PT 10.7 (9.8-11.6) sec INR 1.1 Ratio APTT 25.8 (24.3-30.1) sec Sodium 138 (136-145) meq/L Potassium 4.4 (3.5-5.1) meq/L Chloride 106 (98-107) meq/L Carbon Dioxide 24.4 (21.0-32.0) meq/L Anion Gap 8 (5-15) meq/L BUN 15 (7-18) mg/dL Creatinine 0.99 (0.60-1.30) mg/dL Estimated GFR 78 L (>89) mL/min Random Glucose 81 (74-106) mg/dL Calcium 7.7 L (8.5-10.1) mg/dL Prot Corrected Calcium (8.5-10.1) mg/dL Total Bilirubin (0.2-1.0) mg/dL AST (15-37) U/L ALT (12-78) U/L Alkaline Phosphatase (45-117) U/L Total Protein (6.4-8.2) g/dL Albumin (3.4-5.0) g/dL Triglycerides (42-150) mg/dL Cholesterol (120-200) mg/dL LDL Cholesterol, Calc (0-99) mg/dL HDL Cholesterol (40.0-60.0) mg/dL Cholesterol/HDL Ratio Ratio TSH (0.358-3.740) uIU/mL 01/06/18 01/07/18 01/07/18 Range/Units 14:03 06:55 06:55 WBC 7.0 (4.0-11.0) th/mm3 RBC 4.42 L (4.50-5.90) mil/mm3 Hgb 13.0 (13.0-17.0) gm/dL Hct 38.3 L (39.0-51.0) % MCV 86.7 (80.0-100.0) fL MCH 29.4 (27.0-34.0) pg MCHC 33.9 (32.0-36.0) % RDW 13.6 (11.6-17.2) % Plt Count 253 (150-450) th/mm3 MPV 8.8 (7.0-11.0) fL Neut % (Auto) 54.4 (16.0-70.0) % Lymph % (Auto) 35.0 (9.0-44.0) % [place] % (Auto) 6.4 (0.0-8.0) % Eos % (Auto) 2.8 (0.0-4.0) % Baso % (Auto) 1.4 (0.0-2.0) % Neut # (Auto) 3.8 (1.8-7.7) th/mm3 Lymph # (Auto) 2.4 (1.0-4.8) th/mm3 [place] # (Auto) 0.4 (0.0-0.9) th/mm3 Eos # (Auto) 0.2 (0.0-0.4) th/mm3 Baso # (Auto) 0.1 (0.0-0.2) th/mm3 WBC Differential . Differential Comment Auto diff final PT (9.8-11.6) sec INR Ratio APTT (24.3-30.1) sec Sodium 139 (136-145) meq/L Potassium 4.2 (3.5-5.1) meq/L Chloride 108 H (98-107) meq/L Carbon Dioxide 24.7 (21.0-32.0) meq/L Anion Gap 6 (5-15) meq/L BUN 12 (7-18) mg/dL Creatinine 1.05 (0.60-1.30) mg/dL Estimated GFR 73 L (>89) mL/min Random Glucose 87 (74-106) mg/dL Calcium 7.8 L 8.1 L (8.5-10.1) mg/dL Prot Corrected Calcium 8.2 L (8.5-10.1) mg/dL Total Bilirubin 0.4 (0.2-1.0) mg/dL AST 10 L (15-37) U/L ALT 14 (12-78) U/L Alkaline Phosphatase 46 (45-117) U/L Total Protein 6.5 6.2 L (6.4-8.2) g/dL Albumin 3.1 L (3.4-5.0) g/dL Triglycerides (42-150) mg/dL Cholesterol (120-200) mg/dL LDL Cholesterol, Calc (0-99) mg/dL HDL Cholesterol (40.0-60.0) mg/dL Cholesterol/HDL Ratio Ratio TSH (0.358-3.740) uIU/mL 01/08/18 01/08/18 Range/Units 07:20 07:20 WBC (4.0-11.0) th/mm3 RBC (4.50-5.90) mil/mm3 Hgb (13.0-17.0) gm/dL Hct (39.0-51.0) % MCV (80.0-100.0) fL MCH (27.0-34.0) pg MCHC (32.0-36.0) % RDW (11.6-17.2) % Plt Count (150-450) th/mm3 MPV (7.0-11.0) fL Neut % (Auto) (16.0-70.0) % Lymph % (Auto) (9.0-44.0) % [place] % (Auto) (0.0-8.0) % Eos % (Auto) (0.0-4.0) % Baso % (Auto) (0.0-2.0) % Neut # (Auto) (1.8-7.7) th/mm3 Lymph # (Auto) (1.0-4.8) th/mm3 [place] # (Auto) (0.0-0.9) th/mm3 Eos # (Auto) (0.0-0.4) th/mm3 Baso # (Auto) (0.0-0.2) th/mm3 WBC Differential Differential Comment PT (9.8-11.6) sec INR Ratio APTT (24.3-30.1) sec Sodium (136-145) meq/L Potassium (3.5-5.1) meq/L Chloride (98-107) meq/L Carbon Dioxide (21.0-32.0) meq/L Anion Gap (5-15) meq/L BUN (7-18) mg/dL Creatinine (0.60-1.30) mg/dL Estimated GFR (>89) mL/min Random Glucose (74-106) mg/dL Calcium (8.5-10.1) mg/dL Prot Corrected Calcium (8.5-10.1) mg/dL Total Bilirubin (0.2-1.0) mg/dL AST (15-37) U/L ALT (12-78) U/L Alkaline Phosphatase (45-117) U/L Total Protein (6.4-8.2) g/dL Albumin (3.4-5.0) g/dL Triglycerides 103 (42-150) mg/dL Cholesterol 135 (120-200) mg/dL LDL Cholesterol, Calc 82 (0-99) mg/dL HDL Cholesterol 32.6 L (40.0-60.0) mg/dL Cholesterol/HDL Ratio 4.14 Ratio TSH 0.327 L (0.358-3.740) uIU/mL Imaging Data Attestation: I personally reviewed and interpreted this imaging study as follows : Radiologist's impression: Abdomen/Pelvis CT 01/06/18 13:04 CONCLUSION: 1. No acute CT abnormality in the abdomen or pelvis. 2. Minimal bibasilar airspace disease, likely atelectasis. 3. Sigmoid diverticulosis. 4. Nonspecific prostatic enlargement. Cervical Spine CT 01/06/18 13:04 CONCLUSION: 1. No acute fracture or subluxation. 2. Multilevel facet arthropathy. Chest CT 01/06/18 13:04 CONCLUSION: No acute abnormality is identified. Chest X-Ray 01/06/18 13:04 CONCLUSION: 1. Negative portable chest. Head CT 01/06/18 13:04 CONCLUSION: 1. Focal region of hypodensity in the right basal ganglia extending to the centrum semiovale and right frontoparietal mid to high convexities measuring approximately 3.7 x 1.7 cm with mild associated mass effect on the right lateral ventricle. No definitive evidence for hemorrhage in this region or volume loss. Favor subacute infarction. Consider contrast-enhanced MRI examination for better evaluation. . Lumbar Spine CT 01/06/18 13:04 CONCLUSION: 1. No acute fracture or subluxation. 2. Mild multilevel degenerative spondylosis of the lumbar spine, as above. Thoracic Spine CT 01/06/18 13:04 CONCLUSION: 1. No acute fracture or subluxation. 2. Mild degenerative spondylosis of the lower thoracic spine, as above. Humerus X-Ray 01/06/18 16:03 CONCLUSION: No acute right arm abnormality is identified. Head MRI 01/06/18 16:57 CONCLUSION: 1. Findings are characteristic of acute nonhemorrhagic infarct right MCA distribution involving temporal and parietal cortex parietal, and right striatum. 2. No evidence of acute blood products or extra-axial fluid collections. Shoulder MRI 01/07/18 00:00 CONCLUSION: 1. Marrow edema within the superior humerus near the rotator cuff insertion which may represent a bone contusion. 2. Rotator cuff tendinopathy as above without full-thickness tear. Degenerative changes in the shoulder joint and AC joint. Head CTA 01/07/18 20:06 CONCLUSION: 1. Negative CTA of the [place]. Neck CTA 01/07/18 20:06 CONCLUSION: 1. Normal CTA of the carotids. Discharge Plan Discharge Disposition Patient Disposition: 30 Still Patient Discharge Condition Condition: Stable Discharge Details Diagnosis: CVA (cerebral vascular accident), Fall Physicians Team ED Provider: Lilia Parker ED Midlevel Provider: Lindsay Moncada Primary Care Provider: Lily Carpio Attending Provider: Elena Melendez Other Providers: Ty Hearn ; Edinson Ca ; Kavya Daugherty ; Rodney Gallegos Status ED Status: Left Department Discharge Information Discharge Date/Time: 01/06/18 19:40
[2018-01-06 13:38] LABS: Baso # (Auto) 0.1 th/mm3 (0.0-0.2); Baso % (Auto) 0.8 % (0.0-2.0); Eos # (Auto) 0.2 th/mm3 (0.0-0.4); Eos % (Auto) 1.8 % (0.0-4.0); Hematocrit 40.5 % (39.0-51.0); Hemoglobin 13.6 gm/dL (13.0-17.0); Lymph % (Auto) 29.8 % (9.0-44.0); Mean Corpuscular HGB Conc 33.6 % (32.0-36.0); Mean Corpuscular Volume 86.4 fL (80.0-100.0); Mono # (Auto) 0.6 th/mm3 (0.0-0.9); Mono % (Auto) 5.5 % (0.0-8.0); Neut # (Auto) 6.3 th/mm3 (1.8-7.7); Neut % (Auto) 62.1 % (16.0-70.0); Platelet Count 308 th/mm3 (150-450); Red Blood Count 4.69 mil/mm3 (4.50-5.90); Red Cell Distribution Width 13.8 % (11.6-17.2); White Blood Count 10.1 th/mm3 (4.0-11.0)
[2018-01-06 13:48] LABS: Activated Partial Thrombo Time 25.8 sec (24.3-30.1); INR 1.1 Ratio; Prothrombin Time 10.7 sec (9.8-11.6)
--- NOTE | 2018-01-06 14:18 | XR ---
EXAM DATE: 01/06/2018 1:04 PM EDT AGE/SEX: 57 years / Male INDICATIONS: Fell out of a tree last night, 25 feet. Back pain. CLINICAL DATA: This is the patient's initial encounter. Patient reports that signs and symptoms have been present for 2 days and indicates a pain score of 0/10. MEDICAL/SURGICAL HISTORY: . smokes None. COMPARISON: . FINDINGS: A single AP view of the chest demonstrates the lungs to be symmetrically aerated without evidence of mass, infiltrate or effusion. The cardiomediastinal contours are unremarkable. Osseous structures a re intact. CONCLUSION: 1. Negative portable chest. Electronically signed by: Shun Shepard MD 01/06/2018 2:17 PM EDT
[2018-01-06 14:44] LABS: Calcium 7.7 mg/dL (8.5-10.1); Carbon Dioxide 24.4 meq/L (21.0-32.0)
[2018-01-06 14:45] LABS: Potassium 4.4 meq/L (3.5-5.1)
[2018-01-06 15:34] LABS: Calcium 7.8 mg/dL (8.5-10.1); Total Protein 6.5 g/dL (6.4-8.2)
--- NOTE | 2018-01-06 15:34 | CT ---
EXAM DATE: 01/06/2018 2:50 PM EDT AGE/SEX: 57 years / Male INDICATIONS: Fell from ladder yesterday. CLINICAL DATA: This is the patient's initial encounter. Patient reports that signs and symptoms have been present for 3 days and indicates a pain score of 4/10. MEDICAL/SURGICAL HISTORY: None. None. RADIATION DOSE: 51.45 CTDI (mGy) COMPARISON: No prior exams available for comparison. TECHNIQUE: CT of the head without contrast. Using automated exposure control and adjustment of the mA and/or kV according to patient size, radiation dose was kept as low as reasonably achievable to ob tain optimal diagnostic quality images. DICOM format image data is available electronically for revi ew and comparison. FINDINGS: Cerebrum: Focal hypodensity extending from the right basal ganglia to the centrum semiovale and the right frontoparietal mid to high convexities. Overall, this measures approximately 3.7 x 1.7 cm. Ther e is mild associated mass effect on the anterior horn of the right lateral ventricle. No right to lef t shift. No evidence for hemorrhage in this region. No significant encephalomalacia. The ventricles a re otherwise normal for age. No extraaxial fluid collections are seen. Posterior Fossa: The cerebellum and brainstem are intact. The 4th ventricle is midline. The cerebe llopontine angle is unremarkable. Extracranial: The visualized portion of the orbits is intact. Skull: The calvaria is intact. No evidence of skull fracture. CONCLUSION: 1. Focal region of hypodensity in the right basal ganglia extending to the centrum semiovale and rig ht frontoparietal mid to high convexities measuring approximately 3.7 x 1.7 cm with mild associated m ass effect on the right lateral ventricle. No definitive evidence for hemorrhage in this region or vo lume loss. Favor subacute infarction. Consider contrast-enhanced MRI examination for better evaluatio n. . Electronically signed by: Shun Shepard MD 01/06/2018 3:33 PM EDT
--- NOTE | 2018-01-06 15:35 | CT ---
EXAM DATE: 01/06/2018 2:50 PM EDT AGE/SEX: 57 years / Male INDICATIONS: Fell from ladder yesterday. CLINICAL DATA: This is the patient's initial encounter. Patient reports that signs and symptoms have been present for 2 days and indicates a pain score of 4/10. MEDICAL/SURGICAL HISTORY: None. None. RADIATION DOSE: 17.21 CTDI (mGy) COMPARISON: [facility], SPINE LUMBAR COMPLETE W/OBLIQ, 04/26/2011. . TECHNIQUE: Contiguous axial images were obtained using helical multirow detector technique. The vol umetric data was post-processed with multiplanar reconstruction in oblique axial, sagittal, and coron al planes. Using automated exposure control and adjustment of the mA and/or kV according to patient s ize, radiation dose was kept as low as reasonably achievable to obtain optimal diagnostic quality ami ges. DICOM format image data is available electronically for review and comparison. FINDINGS: OSSEOUS STRUCTURES: Vertebral body heights are maintained. Osseous structures are intact without evid ence for acute bony fracture. Dens is intact. ALIGNMENT: Sagittal alignment is maintained. There is a normal C1-2 relationship. Facets are normal ly aligned. SOFT TISSUES: There is no significant prevertebral soft tissue hematoma. No significant cervical mayte nopathy or gross mass. The thyroid appears unremarkable. Visualized lung apices are clear without pn eumothorax. ADDITIONAL FINDINGS: Multilevel facet arthropathy most prominently on the right at C3-6. Bony central canal is patent. Bony neural foramina are patent. CONCLUSION: 1. No acute fracture or subluxation. 2. Multilevel facet arthropathy. Electronically signed by: Shun Shepard MD 01/06/2018 3:34 PM EDT
--- NOTE | 2018-01-06 15:43 | CT ---
EXAM DATE: 01/06/2018 2:50 PM EDT AGE/SEX: 57 years / Male INDICATIONS: Fell from ladder yesterday. CLINICAL DATA: This is the patient's initial encounter. Patient reports that signs and symptoms have been present for 2 days and indicates a pain score of 5/10. MEDICAL/SURGICAL HISTORY: None. None. ORAL CONTRAST: No oral contrast ingested. RADIATION DOSE: 13.42 CTDI (mGy) ; Combined studies COMPARISON: [facility] [place], CT ABDOMEN & PELVIS W/O CONTRAST, 11/25/2015. . TECHNIQUE: Multiple contiguous axial images were obtained through the abdomen and pelvis following b olus infusion of 93 ml Omnipaque 350 (iohexol) nonionic water-soluble contrast as a cumulative dose for multiple exams. No oral contrast ingested. Using automated exposure control and adjustment of [facility] mA and/or kV according to patient size, radiation dose was kept as low as reasonably achievable to obtain optimal diagnostic quality images. DICOM format image data is available electronically for r eview and comparison. FINDINGS: LOWER LUNGS: Minimal groundglass opacities at the lung bases. LIVER: The liver has a homogeneous density without space-occupying lesion. There is no dilation of t biliary tree. SPLEEN: Homogeneous density without enlargement. PANCREAS: Unremarkable without mass or calcification. KIDNEYS: Kidneys demonstrate symmetrical enhancement and are symmetrical in size without evidence fo r radiopaque renal calculi or hydronephrosis. ADRENAL GLANDS: Unremarkable. AORTA: Cindi-aneurysmal. BOWEL/MESENTERY: Mild to moderate sigmoid diverticulosis. The bowel loops are grossly unremarkable. The cecum and sigmoid colon have a normal configuration. No free fluid or drainable fluid collection s. ABDOMINAL WALL: Intact. RETROPERITONEUM: No evidence of adenopathy in the retrocrural, para-aortic, or deep pelvic regions. BLADDER: Contours are smooth. REPRODUCTIVE: Prostate is prominent and contains coarse calcifications. BONY STRUCTURES: Osseous structures are intact without evidence for acute bony fracture. CONCLUSION: 1. No acute CT abnormality in the abdomen or pelvis. 2. Minimal bibasilar airspace disease, likely atelectasis. 3. Sigmoid diverticulosis. 4. Nonspecific prostatic enlargement. Electronically signed by: Shun Shepard MD 01/06/2018 3:41 PM EDT
--- NOTE | 2018-01-06 15:50 | CT ---
EXAM DATE: 01/06/2018 2:50 PM EDT AGE/SEX: 57 years / Male INDICATIONS: Fell from ladder yesterday. CLINICAL DATA: This is the patient's initial encounter. Patient reports that signs and symptoms have been present for 2 days and indicates a pain score of 4/10. MEDICAL/SURGICAL HISTORY: None. None. RADIATION DOSE: 13.42 CTDI (mGy) ; Combined studies COMPARISON: No prior exams available for comparison. TECHNIQUE: Multiple contiguous axial images were obtained through the chest during bolus infusion of 93 ml Omnipaque 350 (iohexol) nonionic water-soluble contrast as a cumulative dose for multiple exa ms. Images were obtained in suspended respiration using multiple row detector helical technique. U sing automated exposure control and adjustment of the mA and/or kV according to patient size, radiati on dose was kept as low as reasonably achievable to obtain optimal diagnostic quality images. DICOM format image data is available electronically for review and comparison. FINDINGS: Lungs: No consolidation or pneumothorax. There is respiratory motion artifact with dependent atelec tasis bilaterally. Mediastinum: The heart and great vessels demonstrate no acute abnormality. No lymphadenopathy is id entified. There is mild coronary artery calcification. Pleurae: No pleural effusion or pleural thickening. Axillae: No lymphadenopathy. Musculoskeletal: The bones and soft tissues demonstrate no acute abnormality. No fracture is identi fied. There are degenerative changes of the thoracic spine. Other: Please refer to abdomen and pelvis CT report for description of the subdiaphragmatic findings . CONCLUSION: No acute abnormality is identified. Electronically signed by: Eric Henry MD 01/06/2018 3:48 PM EDT
--- NOTE | 2018-01-06 15:59 | CT ---
EXAM DATE: 01/06/2018 2:50 PM EDT AGE/SEX: 57 years / Male INDICATIONS: Fell from ladder yesterday. CLINICAL DATA: This is the patient's initial encounter. Patient reports that signs and symptoms have been present for 2 days and indicates a pain score of 4/10. MEDICAL/SURGICAL HISTORY: None. None. RADIATION DOSE: . CTDI (mGy) ; Combined studies COMPARISON: [facility] – [place] CERV[place] W/O CONTRAST, 01/06/2018. . TECHNIQUE: Contiguous axial images were acquired using a multirow detector CT scanner after intraven ous administration of 93 ml Omnipaque 350 (iohexol) nonionic water-soluble contrast as a single exam dose. Multiplanar reconstruction in the sagittal and coronal planes was performed. Using automate d exposure control and adjustment of the mA and/or kV according to patient size, radiation dose was k ept as low as reasonably achievable to obtain optimal diagnostic quality images. DICOM format image data is available electronically for review and comparison. FINDINGS: Small Schmorl's node in the superior endplate of T6. The vertebral bodies of the thoracic spine are i n normal alignment. Vertebral body height is otherwise maintained. No fractures are seen. T1 - T2: Normal. T2 - T3: The thecal sac has a normal diameter. No evidence of disc bulge or protrusion. T3 - T4: The thecal sac has a normal diameter. No evidence of disc bulge or protrusion. T4 - T5: The thecal sac has a normal diameter. No evidence of disc bulge or protrusion. T5 - T6: The thecal sac has a normal diameter. No evidence of disc bulge or protrusion. T6 - T7: The thecal sac has a normal diameter. No evidence of disc bulge or protrusion. T7 - T8: Anterior osteophytes. No bony central canal or neural foraminal stenosis. T8 - T9: The thecal sac has a normal diameter. No evidence of disc bulge or protrusion. T9 - T10: The thecal sac has a normal diameter. No evidence of disc bulge or protrusion. T10 - T11: The thecal sac has a normal diameter. No evidence of disc bulge or protrusion. T11 - T12: Bilateral facet arthropathy. Mild diffuse disc bulge. Bony central canal and neural agustin anibal are patent. T12 - L1: Mild diffuse disc bulge. Mild bilateral, right greater than left facet arthropathy. Bony c entral canal and neural foramina are patent. CONCLUSION: 1. No acute fracture or subluxation. 2. Mild degenerative spondylosis of the lower thoracic spine, as above. Electronically signed by: Shun Shepard MD 01/06/2018 3:57 PM EDT
--- NOTE | 2018-01-06 16:03 | CT ---
EXAM DATE: 01/06/2018 2:50 PM EDT AGE/SEX: 57 years / Male INDICATIONS: Fell from ladder yesterday. CLINICAL DATA: This is the patient's initial encounter. Patient reports that signs and symptoms have been present for 2 days and indicates a pain score of 4/10. MEDICAL/SURGICAL HISTORY: None. None. RADIATION DOSE: . CTDI (mGy) ; Reconstructed from previous dataset, no dose COMPARISON: [facility] – [place], CT CERVICAL SPINE W/O CONTRAST, 01/06/2018. . TECHNIQUE: Contiguous axial images were acquired with a multirow detector CT scanner after intraveno us administration of 93 ml Omnipaque 350 (iohexol) nonionic water-soluble contrast as a single exam dose. Multiplanar reconstructions in the sagittal and coronal plane were also performed. Using autom ated exposure control and adjustment of the mA and/or kV according to patient size, radiation dose wa s kept as low as reasonably achievable to obtain optimal diagnostic quality images. DICOM format ami data is available electronically for review and comparison. FINDINGS: Vertebrae: Normal vertebral body height. Alignment: Normal. No subluxation. Paraspinal Soft Tissues: Unremarkable. No significant adenopathy. Aorta is non-aneurysmal. T12-L1: The thecal sac has a normal diameter. No evidence of disc bulge or protrusion. The neural foramina are patent bilaterally. L1-L2: Mild diffuse disc bulge eccentric to the left. Bony central canal and neural foramina are pat ent. L2-L3: Mild diffuse disc bulge eccentric to the left. Bony central canal and neural foramina are pat ent. L3-L4: Mild diffuse disc bulge. Mild ligamentum flavum hypertrophy. Minimal facet arthropathy. Mild effacement anterior thecal sac. Bony neural foramina are patent. L4-L5: Mild diffuse disc bulge, ligamentum flavum hypertrophy and minimal facet arthropathy. Bony ne ural foramina are patent. L5-S1: Minimal diffuse disc bulge. Bony central canal and neural foramina are patent. CONCLUSION: 1. No acute fracture or subluxation. 2. Mild multilevel degenerative spondylosis of the lumbar spine, as above. Electronically signed by: Shun Shepard MD 01/06/2018 4:02 PM EDT
--- NOTE | 2018-01-06 16:30 | XR ---
EXAM DATE: 01/06/2018 4:03 PM EDT AGE/SEX: 57 years / Male INDICATIONS: Patient complains of mid humerus status post fall. CLINICAL DATA: This is the patient's initial encounter. Patient reports that signs and symptoms have been present for 2 days and indicates a pain score of 8/10. MEDICAL/SURGICAL HISTORY: None. None. COMPAR[place]: [facility] [place]TE (>2VWS), 08/16/2016. . FINDINGS: AP and lateral views of the right humerus demonstrate no fracture or dislocation. Mineralization is n ormal. No soft tissue abnormality or radiopaque foreign body is identified. CONCLUSION: No acute right arm abnormality is identified. Electronically signed by: Eric Henry MD 01/06/2018 4:28 PM EDT
[2018-01-06] MEDS ORDERED: Acetaminophen 325 MG Tablet PO PRN (17:55)
--- NOTE | 2018-01-06 18:03 | P.HPIM ---
History of Present Illness Primary Care Physician: Lily Carpio Chief Complaint: Fall History of Present Illness: The patient is a 57-year-old male with a past medical history significant for hypertension, chronic back pain, psoriasis and rheumatoid arthritis was presented to the hospital after a fall. He says he was on a ladder yesterday that was about 30 feet tall when all of a sudden it kicked out from under him. He said that he fell on his right shoulder and on his tailbone. He says he had significant pain at the time and felt something pop in his right arm. Since then he has had tingling shooting from his right shoulder all the way down to the fingers of his right hand. He says that the pain in his tailbone has gotten better. He says initially his pain was 8 out of 10 and now it is a 6 out of 10. He says that a few months ago he was admitted to an outside hospital where he was found to have a bloodstream infection. He also had 3 grand mal seizures back to back. He says he was told he has a small spot in his brain that causes memory issues, which he acknowledges. He says since then he has had multiple small seizures, the last being last week. He says he feels like he has a metal taste in his mouth prior to having seizures. He thinks he had the blood stream infection from poor dentition. Review of Systems All other systems reviewed negative except as stated in HPI PMFSH - History History Provided By: Patient - Medical History Medical History: Medical History (Last Updated 01/06/18 @ 18:00 by Mayank Mensah DO) Bacteremia Chronic back pain Psoriasis Seizures HTN (hypertension) Rheumatoid arthritis - Surgical History Surgical History: Surgical History (Last Reviewed 01/06/18 @ 18:00 by Mayank Mensah DO) History of hand surgery History of sinus surgery Hx of knee surgery - Family History Family History: Family History (Last Updated 01/06/18 @ 18:01 by Mayank Mensah DO) Other CAD (coronary artery disease) - Tobacco History Second Hand Smoke Exposure: Yes Tobacco Use In Past 30 Days: Yes Smoking Status: Current every day smoker Tobacco Type: Cigarettes - Alcohol History How Often Do You Have a Drink Containing Alcohol: 2 to 4 times a month - Substance Use History Substance History: No History of Abuse - Travel History Recent Travel in the [facility] Within the Last 8 Weeks: No Recent Travel Out of the Country Within the Last 8 Weeks: No - Immunization History Tetanus Immunization: <5 Years Hx Influenza Vaccine This Season: No Medications and Allergies Active Medications: Active Medications Hydrocodone Bitart/Acetaminophen ([place] 5/325) 1 tab PO Q4H PRN PRN Reason: pain 3-10 Alprazolam (Xanax) 0.5 mg PO Q4H PRN PRN Reason: ANXIETY Carisoprodol (Soma) 350 mg PO BID JOSSELIN Sodium Chloride (Ns Inj) 1,000 mls @ 0 mls/hr IV.SIG BOLUS JOSSELIN Levetiracetam (Keppra) 500 mg PO BID JOSSELIN Sodium Chloride (Ns Flush) 2 ml IV.FLUSH PRN PRN PRN Reason: FLUSH AFTER USING IV ACCESS Allergies Allergy/AdvReac Type Severity Reaction Status Date / Time *MDRO Multi-Drug Resistant AdvReac Unknown MRSA Uncoded 01/06/18 13:35 Organism Home Medications Medication Instructions Recorded Confirmed Type hydrocodone-acetaminophen 1 tab PO Q4-6H PRN 11/19/17 01/06/18 History lisinopril 10 mg PO DAILY 11/19/17 01/06/18 History carisoprodol [Soma] 350 mg PO BID 01/06/18 01/06/18 History levetiracetam [Keppra] 500 mg PO BID 01/06/18 01/06/18 History Exam Vital signs: Vital Signs 01/06/18 12:47 01/06/18 13:36 01/06/18 13:37 Temperature 98.6 F Pulse Rate 83 Respiratory Rate 18 18 Blood Pressure 111/73 Pulse Oximetry 100 96 96 Intake & Output 01/05/18 01/06/18 01/06/18 18:59 06:59 18:59 Weight 95.254 kg Narrative: GENERAL: Well-developed, well-nourished, well-appearing male. SKIN: Focused skin assessment warm/dry. Swelling noted to the right upper arm. Approximately 3 cm in diameter. Superficial abrasions noted to bilateral knees. HEAD: Atraumatic. Normocephalic. EYES: Pupils equal and round. No scleral icterus. No injection or drainage. ENT: No nasal bleeding or discharge. Mucous membranes pink and moist. NECK: Trachea midline. No JVD. Full range of motion with flexion, extension and rotation. CARDIOVASCULAR: Regular rate and rhythm. No murmur appreciated. RESPIRATORY: No accessory muscle use. Clear to auscultation. Breath sounds equal bilaterally. GASTROINTESTINAL: Abdomen soft, non-tender, nondistended. Hepatic and splenic margins not palpable. Positive bowel sounds, no rebound, no guarding. MUSCULOSKELETAL: No obvious deformities. No clubbing. No cyanosis. No edema. NEUROLOGICAL: Awake and alert. No obvious cranial nerve deficits. Motor grossly within normal limits. RUE ROM restricted s/t pain. Normal speech. Results - Labs CBC & Chem 7: 01/06/18 13:20 01/06/18 14:03 Labs: Short CBC 01/06/18 Range/Units 13:20 WBC 10.1 (4.0-11.0) th/mm3 Hgb 13.6 (13.0-17.0) gm/dL Hct 40.5 (39.0-51.0) % Plt Count 308 (150-450) th/mm3 BMP 01/06/18 01/06/18 14:03 14:03 Sodium 138 Potassium 4.4 Chloride 106 Carbon Dioxide 24.4 BUN 15 Creatinine 0.99 Calcium 7.7 L 7.8 L - Imaging Impressions Abdomen/Pelvis CT 01/06/18 13:04 CONCLUSION: 1. No acute CT abnormality in the abdomen or pelvis. 2. Minimal bibasilar airspace disease, likely atelectasis. 3. Sigmoid diverticulosis. 4. Nonspecific prostatic enlargement. Cervical Spine CT 01/06/18 13:04 CONCLUSION: 1. No acute fracture or subluxation. 2. Multilevel facet arthropathy. Chest CT 01/06/18 13:04 CONCLUSION: No acute abnormality is identified. Chest X-Ray 01/06/18 13:04 CONCLUSION: 1. Negative portable chest. Head CT 01/06/18 13:04 CONCLUSION: 1. Focal region of hypodensity in the right basal ganglia extending to the centrum semiovale and right frontoparietal mid to high convexities measuring approximately 3.7 x 1.7 cm with mild associated mass effect on the right lateral ventricle. No definitive evidence for hemorrhage in this region or volume loss. Favor subacute infarction. Consider contrast-enhanced MRI examination for better evaluation. . Lumbar Spine CT 01/06/18 13:04 CONCLUSION: 1. No acute fracture or subluxation. 2. Mild multilevel degenerative spondylosis of the lumbar spine, as above. Thoracic Spine CT 01/06/18 13:04 CONCLUSION: 1. No acute fracture or subluxation. 2. Mild degenerative spondylosis of the lower thoracic spine, as above. Humerus X-Ray 01/06/18 16:03 CONCLUSION: No acute right arm abnormality is identified. Caprini VTE Risk Assessment Caprini VTE Risk Assessment: Moderate/High Risk (score >= 2) Caprini Risk Assessment Model: Point Value = 1 Point Value = 2 Point Value = 3 Point Value = 5 Age 41-60 Minor surgery BMI > 25 kg/m2 Swollen legs Varicose veins or History of unexplained or recurrent spontaneous Oral contraceptives or hormone replacement Sepsis (< 1 month) Serious lung disease, including pneumonia (< 1 month) Abnormal pulmonary function Acute myocardial infarction Congestive heart failure (< 1 month) History of inflammatory bowel disease Medical patient at bed rest Age 61-74 Arthroscopic surgery Major open surgery (> 45 min) Laparoscopic surgery (> 45 min) Malignancy Confined to bed (> 72 hours) Immobilizing plaster cast Central venous access Age >= 75 History of VTE Family history of VTE Factor V Leiden Prothrombin [id number] Lupus anticoagulant Anticardiolipin antibodies Elevated serum homocysteine Heparin-induced thrombocytopenia Other congenital or acquired thrombophilia Stroke (< 1 month) Elective arthroplasty Hip, pelvis, or leg fracture Acute spinal cord injury (< 1 month) Prophylaxis Regimen: Total Risk Factor Score Risk Level Prophylaxis Regimen 0-1 Low Early ambulation 2 Moderate Order ONE of the following: *Sequential Compression Device (SCD) *Heparin 5000 units SQ BID 3-4 Higher Order ONE of the following medications: *Heparin 5000 units SQ TID *Enoxaparin/Lovenox 40 mg SQ daily (WT < 150 kg, CrCl > 30 mL/min) *Enoxaparin/Lovenox 30 mg SQ daily (WT < 150 kg, CrCl > 10-29 mL/min) *Enoxaparin/Lovenox 30 mg SQ BID (WT < 150 kg, CrCl > 30 mL/min) AND/OR *Sequential Compression Device (SCD) 5 or more Highest Order ONE of the following medications: *Heparin 5000 units SQ TID (Preferred with Epidurals) *Enoxaparin/Lovenox 40 mg SQ daily (WT < 150 kg, CrCl > 30 mL/min) *Enoxaparin/Lovenox 30 mg SQ daily (WT < 150 kg, CrCl > 10-29 mL/min) *Enoxaparin/Lovenox 30 mg SQ BID (WT < 150 kg, CrCl > 30 mL/min) AND *Sequential Compression Device (SCD) Assessment and Plan - Plan Subacute CVA CT showed: Focal region of hypodensity in the right basal ganglia extending to the centrum semiovale and right frontoparietal mid to high convexities measuring approximately 3.7 x 1.7 cm with mild associated mass effect on the right lateral ventricle; No definitive evidence for hemorrhage in this region or volume loss; Favor subacute infarction. -neurology consult pending. MRI w/wo contrast recommended and pending. -neuro checks. -PT/OT. -permissive HTN. -IVFs. -case management consult. Fall The pt fell from a ladder. Imaging negative except for above. 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 -neurology consult. -PT/OT. -pain control and muscle relaxers as needed. Seizure disorder/ Bacteremia Recently treated at an OSH for grand mal seizures and bacteremia. He was also told he had a small spot on his brain at that time. -request records from OSH. -continue Keppra. -seizure precautions. Anxiety Chronic. -Xanax as needed. PPx: SCDs
[2018-01-06] MEDS ORDERED: Gadobutrol PF 10 MMOL/10 ML Vial (for RAD) IV.SIG ONE (18:15)
--- NOTE | 2018-01-06 19:10 | MR ---
EXAM DATE: 01/06/2018 5:44 PM EDT AGE/SEX: 57 years / Male INDICATIONS: . Fall from ladder. Abnormal CT. CLINICAL DATA: This is the patient's subsequent encounter. Patient reports that signs and symptoms h ave been present for 1 day and indicates a pain score of 3/10. MEDICAL/SURGICAL HISTORY: Rheumatoid arthritis. Hypertension. . Hand surgery. Sinus surgery. Knee surgery. [place] [facility] [place]. [facility] [place]. . TECHNIQUE: Multiplanar, multisequence examination of the brain was performed without and with 9.5 ml Gadavist (gadobutrol) contrast as a single exam dose. FINDINGS: Cerebrum: CT had demonstrated hypodensity in the right basal ganglia and frontoparietal region. MRI is abnormal in the same area demonstrated scattered areas of restricted diffusion involving body of t he caudate nucleus, head of the caudate nucleus, lateral striatum, and cortex of the low to mid conve xity temporal and parietal lobes. There is mild mass effect with narrowing of the right frontal horn. There is no abnormal enhancement and no cortical enhancement. On the susceptibility weighted sequenc es, no findings to suggest blood products. The left hemisphere intact. Midline structures are deviate d. The pituitary is normal in appearance. Posterior Fossa: The cerebellum and brainstem are intact. The 4th ventricle is midline. The cerebel lopontine angle is unremarkable. The cerebellar tonsils are normal in position. Extracranial: The visualized portions of the orbits and paranasal sinuses are unremarkable. CONCLUSION: 1. Findings are characteristic of acute nonhemorrhagic infarct right MCA distribution involving temp oral and parietal cortex parietal, and right striatum. 2. No evidence of acute blood products or extra-axial fluid collections. Electronically signed by: Balaji Patel MD 01/06/2018 7:08 PM EDT
[2018-01-06] MEDS: levETIRAcetam 500 MG Tablet PO SCH (21:12)
[2018-01-06] MEDS: Senna/Docusate Sodium 8.6/50 MG Tablet PO SCH (21:12)
[2018-01-06] MEDS: Carisoprodol 350 MG Tablet PO SCH (21:13)
[2018-01-06] MEDS: Sod Chloride 0.9% Inj 1,000 ML IV.CONT SCH (21:56)
[2018-01-07 07:13] LABS: Baso # (Auto) 0.1 th/mm3 (0.0-0.2); Baso % (Auto) 1.4 % (0.0-2.0); Eos # (Auto) 0.2 th/mm3 (0.0-0.4); Eos % (Auto) 2.8 % (0.0-4.0); Hematocrit 38.3 % (39.0-51.0); Lymph # (Auto) 2.4 th/mm3 (1.0-4.8); Mean Corpuscular HGB Conc 33.9 % (32.0-36.0); Mean Corpuscular Hemoglobin 29.4 pg (27.0-34.0); Mean Corpuscular Volume 86.7 fL (80.0-100.0); Mean Platelet Volume 8.8 fL (7.0-11.0); Mono # (Auto) 0.4 th/mm3 (0.0-0.9); Mono % (Auto) 6.4 % (0.0-8.0); Neut # (Auto) 3.8 th/mm3 (1.8-7.7); Neut % (Auto) 54.4 % (16.0-70.0); Platelet Count 253 th/mm3 (150-450); Red Blood Count 4.42 mil/mm3 (4.50-5.90); Red Cell Distribution Width 13.6 % (11.6-17.2)
[2018-01-07 07:40] LABS: Alanine Aminotransferase 14 U/L (12-78); Albumin 3.1 g/dL (3.4-5.0); Anion Gap 6 meq/L (5-15); Aspartate Aminotransferase 10 U/L (15-37); Blood Urea Nitrogen 12 mg/dL (7-18); Calcium 8.1 mg/dL (8.5-10.1); Carbon Dioxide 24.7 meq/L (21.0-32.0); Chloride 108 meq/L (98-107); Glomerular Filtration Rate 73 mL/min (>89); Glucose,Random 87 mg/dL (74-106); Potassium 4.2 meq/L (3.5-5.1); Sodium 139 meq/L (136-145)
[2018-01-07 07:43] LABS: Alkaline Phosphatase 46 U/L (45-117); Total Protein 6.2 g/dL (6.4-8.2)
[2018-01-07] MEDS: ALPRAZolam 0.5 MG Tablet PO PRN ×3 (07:56→21:33)
[2018-01-07] MEDS: Sod Chloride 0.9% Inj 1,000 ML IV.CONT SCH ×2 (08:57→21:23)
[2018-01-07] MEDS: Carisoprodol 350 MG Tablet PO SCH (08:58)
[2018-01-07] MEDS: Senna/Docusate Sodium 8.6/50 MG Tablet PO SCH ×2 (08:58→21:33)
[2018-01-07] MEDS: levETIRAcetam 500 MG Tablet PO SCH ×2 (08:59→20:22)
--- NOTE | 2018-01-07 12:24 | P.PN ---
Subjective Interval history: Follow up on patient with CVA, right shoulder pain. Patient seen and examined. Patient is complaining of severe right shoulder pain and limited range of motion. He reports new constant tingling over the palmar surface of the right hand. He denies any weakness. He denies any headache or dizziness. States that he has had difficulty with memory for the past 4 months. Also reports recurrent seizures over the past 4 months. Physical Exam Vital signs: Vital Signs 01/06/18 12:47 01/06/18 13:36 01/06/18 13:37 Temperature 98.6 F Pulse Rate 83 Respiratory Rate 18 18 Blood Pressure 111/73 Pulse Oximetry 100 96 96 01/06/18 19:30 01/06/18 20:00 01/07/18 00:00 Temperature 97.8 F 97.7 F Pulse Rate 55 L 63 52 L Respiratory Rate 15 20 20 Blood Pressure 110/82 100/59 L 81/43 L Pulse Oximetry 100 98 96 01/07/18 00:36 01/07/18 04:00 01/07/18 08:17 Temperature 97.7 F 98.2 F Pulse Rate 55 L 53 L Respiratory Rate 19 20 Blood Pressure 93/54 L 87/49 L 100/52 L Pulse Oximetry 94 L 99 01/07/18 09:19 Temperature Pulse Rate Respiratory Rate Blood Pressure Pulse Oximetry 97 Intake & Output 01/06/18 01/07/18 01/07/18 18:59 06:59 18:59 Intake Total 592 / 592 1000 / 1000 Balance 592 / 592 1000 / 1000 Weight 95.254 kg 91.7 kg Intake: IV 1000 / 1000 NS Inj 1,000 ML @ 75 mls/hr IV. 1000 / 1000 CONT .[id number] [facility] Rx#:[id number] Oral Other 562 / 562 Other: Other Intake Source Saline Solution # Voids 0 Date of Last Bowel Movement 01/06/18 Narrative: GENERAL: WDWN male patient, no acute distress. Awake and alert. SKIN: Warm and dry. +Swelling noted in the right upper arm just below the deltoid area. Superficial abrasions noted to both knees. HEAD: Atraumatic. Normocephalic. EYES: Pupils equal and round. No scleral icterus. No injection or drainage. ENT: No nasal bleeding or discharge. Mucous membranes pink and moist. NECK: Trachea midline. CARDIOVASCULAR: Regular rate and rhythm. RESPIRATORY: No accessory muscle use. Clear to auscultation. Breath sounds equal bilaterally. GASTROINTESTINAL: Abdomen soft, non-tender, nondistended. +BS. MUSCULOSKELETAL: Extremities without clubbing or cyanosis. No bilateral lower extremity edema. +tenderness to palpation right shoulder. +Impingement signs I and II. NEUROLOGICAL: Awake and alert. No obvious cranial nerve deficits. Motor grossly within normal limits. Able to move all extremities spontaneously except for decreased ROM right shoulder. Normal speech. PSYCHIATRIC: Appropriate mood and affect; insight and judgment normal. Results - Labs CBC & Chem 7: 01/07/18 06:55 01/07/18 06:55 Laboratory Results - last 24 hr 01/06/18 01/06/18 01/06/18 13:20 13:20 14:03 WBC 10.1 RBC 4.69 Hgb 13.6 Hct 40.5 MCV 86.4 MCH 29.0 MCHC 33.6 RDW 13.8 Plt Count 308 MPV 9.0 Neut % (Auto) 62.1 Lymph % (Auto) 29.8 Loup % (Auto) 5.5 Eos % (Auto) 1.8 Baso % (Auto) 0.8 Neut # (Auto) 6.3 Lymph # (Auto) 3.0 Loup # (Auto) 0.6 Eos # (Auto) 0.2 Baso # (Auto) 0.1 WBC Differential . Differential Comment Auto diff final PT 10.7 INR 1.1 APTT 25.8 Sodium 138 Potassium 4.4 Chloride 106 Carbon Dioxide 24.4 Anion Gap 8 BUN 15 Creatinine 0.99 Estimated GFR 78 L Random Glucose 81 Calcium 7.7 L Prot Corrected Calcium Total Bilirubin AST ALT Alkaline Phosphatase Total Protein Albumin 01/06/18 01/07/18 01/07/18 14:03 06:55 06:55 WBC 7.0 RBC 4.42 L Hgb 13.0 Hct 38.3 L MCV 86.7 MCH 29.4 MCHC 33.9 RDW 13.6 Plt Count 253 MPV 8.8 Neut % (Auto) 54.4 Lymph % (Auto) 35.0 Loup % (Auto) 6.4 Eos % (Auto) 2.8 Baso % (Auto) 1.4 Neut # (Auto) 3.8 Lymph # (Auto) 2.4 Loup # (Auto) 0.4 Eos # (Auto) 0.2 Baso # (Auto) 0.1 WBC Differential . Differential Comment Auto diff final PT INR APTT Sodium 139 Potassium 4.2 Chloride 108 H Carbon Dioxide 24.7 Anion Gap 6 BUN 12 Creatinine 1.05 Estimated GFR 73 L Random Glucose 87 Calcium 7.8 L 8.1 L Prot Corrected Calcium 8.2 L Total Bilirubin 0.4 AST 10 L ALT 14 Alkaline Phosphatase 46 Total Protein 6.5 6.2 L Albumin 3.1 L - Imaging Impressions Abdomen/Pelvis CT 01/06/18 13:04 CONCLUSION: 1. No acute CT abnormality in the abdomen or pelvis. 2. Minimal bibasilar airspace disease, likely atelectasis. 3. Sigmoid diverticulosis. 4. Nonspecific prostatic enlargement. Cervical Spine CT 01/06/18 13:04 CONCLUSION: 1. No acute fracture or subluxation. 2. Multilevel facet arthropathy. Chest CT 01/06/18 13:04 CONCLUSION: No acute abnormality is identified. Chest X-Ray 01/06/18 13:04 CONCLUSION: 1. Negative portable chest. Head CT 01/06/18 13:04 CONCLUSION: 1. Focal region of hypodensity in the right basal ganglia extending to the centrum semiovale and right frontoparietal mid to high convexities measuring approximately 3.7 x 1.7 cm with mild associated mass effect on the right lateral ventricle. No definitive evidence for hemorrhage in this region or volume loss. Favor subacute infarction. Consider contrast-enhanced MRI examination for better evaluation. . Lumbar Spine CT 01/06/18 13:04 CONCLUSION: 1. No acute fracture or subluxation. 2. Mild multilevel degenerative spondylosis of the lumbar spine, as above. Thoracic Spine CT 01/06/18 13:04 CONCLUSION: 1. No acute fracture or subluxation. 2. Mild degenerative spondylosis of the lower thoracic spine, as above. Humerus X-Ray 01/06/18 16:03 CONCLUSION: No acute right arm abnormality is identified. Head MRI 01/06/18 16:57 CONCLUSION: 1. Findings are characteristic of acute nonhemorrhagic infarct right MCA distribution involving temporal and parietal cortex parietal, and right striatum. 2. No evidence of acute blood products or extra-axial fluid collections. Assessment and Plan - Plan 57-year-old male with a past medical history significant for hypertension, chronic back pain, psoriasis and rheumatoid arthritis was presented to the hospital after a fall. Subacute CVA CT showed: Focal region of hypodensity in the right basal ganglia extending to the centrum semiovale and right frontoparietal mid to high convexities measuring approximately 3.7 x 1.7 cm with mild associated mass effect on the right lateral ventricle; No definitive evidence for hemorrhage in this region or volume loss; Favor subacute infarction. -Consult NS, appreciate assistance -Neurology consult pending -neuro checks. -PT/OT -ST cognitive evaluation -permissive HTN. -IVFs. -fall precautions Fall Right shoulder pain, tingling palm of right hand The pt fell from a ladder, states ground gave out from underneath the ladder and it fell over. Imaging negative except for above. 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 -MRI right shoulder for further evaluation -PT/OT. -pain control and muscle relaxers as needed. Seizure disorder/Bacteremia Recently treated at an OSH for grand mal seizures and bacteremia. He was also told he had a small spot on his brain at that time. -request records from OSH. -obtain EEG -continue Keppra. -seizure precautions. Chronic painAnxiety E-FORE Prescription Drug Monitoring Database has been queried and verified prior to prescribing the controlled substance. patient had Xanax 1mg #30 filled on 05/15/17, Soma 350 #30 filled on 10/12/17, Brogan 10/325mg #60 filled on 11/11/17 -Hold Xanax and Soma -Will continue Brogan due to recent fall and injury to right shoulder Hypotensive, bradycardic, asymptomatic, suspect secondary to medication side effect BP 97/54, MAP 68 -hold Xanax and Soma - per EFORCSE above, patient has not had these prescriptions filled in quite some time -d/c IV Morphine -continue on decreased dose of Brogan 5/325mg and change to -IVF -monitor HR and BP PPx: SCDs
[2018-01-07] MEDS ORDERED: Morphine Sulfate Inj 2 MG/ML Vial IV.PUSH PRN (12:30)
--- NOTE | 2018-01-07 14:03 | P.CONNS ---
<Edinson Ca - Last Filed: 01/07/18 20:45> History of Present Illness Service: Neurosurgery Primary Care Provider: Lily Carpio Family Provider: No Primary Care Physician Chief Complaint: Fall History of Present Illness: The patient is a 57-year-old male with history of hypertension, chronic back pain, psoriasis, and rheumatoid arthritis who presented to the hospital after a fall. He says he was on a ladder yesterday about 30 feet when all of a sudden it kicked out from under him. He said that he fell on his right shoulder and on tailbone. He had significant pain at the time and felt something pop in his right arm. Since then he has had tingling shooting from his right shoulder all the way down to the fingers of his right hand. He says that the pain in his tailbone, initially his pain was 8 out of 10 and now 6 out of 10 in a VAS. A few months ago he was admitted to an outside hospital where he was found to have a bloodstream infection. He also had 3 grand mal seizures. He says he was told he has a small spot in his brain. He says since then he has had multiple small seizures, the last being last week. He says he feels like he has a metal taste in his mouth prior to having seizures. He thinks he had the blood stream infection from poor dentition. Review of Systems Constitutional: Denies anorexia, Denies body ache(s), Denies chills, Denies daytime sleepiness, Denies excessive sweating, Denies fatigue, Denies fever(s), Denies headache(s), Denies increased appetite, Denies lack of energy, Denies malaise, Denies night sweats, Denies weakness, Denies weight gain, Denies weight loss, Denies other Eyes: Denies blind spots, Denies blurry vision, Denies bulging eyes, Denies change in vision, Denies double vision, Denies discharge, Denies dry eyes, Denies floaters, Denies irritation, Denies itchy eyes, Denies loss of vision, Denies pain, Denies requires corrective lenses, Denies sensitivity to light, Denies other Ears, Nose, Mouth, and Throat: Denies abnormal hearing, Denies bleeding gums, Denies bad breath, Denies change in voice, Denies dental pain, Denies difficulty swallowing, Denies dizziness, Denies dry mouth, Denies ear discharge , Denies ear pain, Denies facial pain, Denies headache(s), Denies hearing loss, Denies hoarseness, Denies lip swelling, Denies nosebleed, Denies mouth lesions, Denies mouth pain, Denies nasal congestion, Denies nasal discharge, Denies nasal obstruction, Denies nasal trauma, Denies neck lump, Denies neck pain, Denies nose pain, Denies pain with swallowing, Denies poor balance, Denies post nasal drip, Denies ringing in the ears, Denies sinus pain, Denies sinus pressure , Denies sore throat, Denies throat swelling, Denies tongue swelling, Denies other Cardiovascular: Denies chest pain, Denies chest pain at rest, Denies chest pain with activity, Denies excessive sweating, Denies fainting, Denies fast heart rate, Denies foot swelling, Denies generalized swelling, Denies irregular heart rhythm, Denies leg pain with activity, Denies leg sores, Denies leg swelling, Denies lightheadedness, Denies radiating jaw, neck or arm pain, Denies rapid, pounding, or irregular heartbeat, Denies shortness of breath, Denies shortness of breath with activity, Denies shortness of breath when lying down, Denies shortness of breath causing sudden awakening, Denies slow heart rate, Denies other Respiratory: Denies change in phlegm color, Denies chest congestion, Denies cough, Denies coughing up blood, Denies excessive phlegm production, Denies pain on inspiration, Denies pain with cough, Denies shortness of breath, Denies shortness of breath with activity, Denies snoring, Denies stridor, Denies wheezing, Denies other Gastrointestinal: Denies abdominal pain, Denies belching, Denies black, tarry stools, Denies bloating, Denies bright, red blood in stools, Denies change in bowel habits, Denies constant urge to pass stool, Denies change in stools, Denies coffee ground vomit, Denies constipation, Denies cramping, Denies difficulty swallowing, Denies excessive passing of gas, Denies feeling full early, Denies heartburn, Denies incontinent of stools, Denies loose stools, Denies nausea, Denies pain with swallowing, Denies vomiting, Denies vomiting blood, Denies other Genitourinary: Denies blood in semen, Denies blood in urine, Denies decreased urination, Denies difficulty urinating, Denies difficulty with ejaculations, Denies erectile dysfunction, Denies genital lesions, Denies genital pain, Denies painful urination, Denies side pain, Denies frequent nighttime urination , Denies painful ejaculations, Denies penile discharge, Denies scrotal swelling , Denies testicle lump, Denies testicle pain, Denies urinary frequency, Denies urinary hesitancy, Denies urinary incontinence, Denies urinary urgency, Denies other Musculoskeletal: Denies abnormal walking, Denies back pain, Denies body aches, Denies decreased muscle mass, Denies deformity, Denies joint pain, Denies joint swelling, Denies limited joint movement, Denies loss of height, Denies muscle cramps, Denies muscle weakness, Denies neck pain, Denies numbness, Denies radiating pain into limb, Denies stiffness, Denies tingling, Denies other Skin/Breast: Denies acne, Denies bleeding lesions, Denies boil, Denies breast swelling, Denies breast skin changes, Denies breast pain, Denies breast lump, Denies change in breast shape, Denies change in hair, Denies change in skin color, Denies changing lesions, Denies dry skin, Denies excessive hair growth, Denies hair loss, Denies itching, Denies lesions, Denies nail changes, Denies new lesions, Denies nipple discharge, Denies non-healing lesions, Denies redness , Denies sensitivity to light, Denies rash, Denies skin pain, Denies skin ulcer , Denies sores, Denies stretch saldaña, Denies unusual bruising, Denies wounds, Denies yellowing of the skin, Denies other Neurologic: Denies abnormal hearing, Denies abnormal movements, Denies abnormal speech, Denies abnormal walking, Denies behavioral changes, Denies burning sensations, Denies confusion, Denies dizziness, Denies fainting, Denies frequent falls, Denies headache(s), Denies lack of coordination, Denies localized weakness, Denies loss of vision, Denies memory loss, Denies numbness, Denies other visual disturbances, Denies radiating pain, Denies restless legs, Denies convulsions, Denies seizure-like activity, Denies sensory deficit, Denies tingling, Denies tingling/numbness/burning sensations, Denies tremor(s), Denies unsteadiness, Denies weakness, Denies other Psychiatric: Denies abnormal sleep pattern, Denies anxiety, Denies behavioral changes, Denies change in appetite, Denies change in sex drive, Denies confusion , Denies depression, Denies difficulty concentrating, Denies hearing things others do not hear, Denies hopelessness, Denies irritability, Denies lack of enjoyment, Denies memory loss, Denies mood swings, Denies panic attacks, Denies paranoia, Denies seeing things others do not see, Denies sensing things others do not sense, Denies tactile hallucinations, Denies thoughts of hurting/killing others, Denies thoughts of hurting/killing yourself, Denies other Endocrine: Denies cold intolerance, Denies excessive sweating, Denies flushing, Denies heat intolerance, Denies increased hunger, Denies increased thirst, Denies increased urination, Denies rapid, pounding, or irregular heartbeat, Denies other Hematologic/Lymphatic: Denies easy bleeding, Denies easy bruising, Denies enlarged lymph nodes, Denies other Allergic/Immunologic: Denies GI upset with certain foods, Denies hives, Denies itchy eyes, Denies lip swelling, Denies seasonal runny nose, Denies throat swelling, Denies tongue swelling, Denies wheezing, Denies other PMFSH - Medical History Medical History: Medical History (Last Reviewed 01/07/18 @ 20:50 by Edinson Ca MD) Bacteremia Chronic back pain Psoriasis Seizures HTN (hypertension) Rheumatoid arthritis - Surgical History Surgical History: Surgical History (Last Reviewed 01/07/18 @ 20:50 by Edinson Ca MD) History of hand surgery History of sinus surgery Hx of knee surgery - Family History Family History: Family History (Last Reviewed 01/07/18 @ 20:50 by Edinson Ca MD) Other CAD (coronary artery disease) - Tobacco History Second Hand Smoke Exposure: No Tobacco Use In Past 30 Days: Yes Smoking Status: Heavy tobacco smoker Tobacco Type: Cigarettes - Alcohol History How Often Do You Have a Drink Containing Alcohol: 2 to 4 times a month - Substance Use History Substance History: No History of Abuse - Travel History Recent Travel in the [place] Within the Last 8 Weeks: No Recent Travel Out of the Country Within the Last 8 Weeks: No - Immunization History Tetanus Immunization: <5 Years Hx Influenza Vaccine This Season: No Medications and Allergies Allergies Allergy/AdvReac Type Severity Reaction Status Date / Time *MDRO Multi-Drug Resistant AdvReac Unknown MRSA Uncoded 01/06/18 13:35 Organism Home Medications Medication Instructions Recorded Confirmed Type hydrocodone-acetaminophen 1 tab PO Q4-6H PRN 11/19/17 01/06/18 History lisinopril 10 mg PO DAILY 11/19/17 01/06/18 History carisoprodol [Soma] 350 mg PO BID 01/06/18 01/06/18 History levetiracetam [Keppra] 500 mg PO BID 01/06/18 01/06/18 History Active Medications: Active Medications Acetaminophen (Tylenol) 650 mg PO Q4H PRN PRN Reason: Temp > 100.4 Hydrocodone Bitart/Acetaminophen ([place] 10/325) 1 tab PO Q6H PRN PRN Reason: PAIN SCALE 6 TO 10 Hydrocodone Bitart/Acetaminophen ([place] 5/325) 1 tab PO Q4H PRN PRN Reason: PAIN SCALE 1 TO 5 Alprazolam (Xanax) 0.5 mg PO Q4H PRN PRN Reason: ANXIETY Last Admin: 01/07/18 12:14 Dose: 0.5 mg Carisoprodol (Soma) 350 mg PO BID [facility] Last Admin: 01/07/18 08:58 Dose: 350 mg Sodium Chloride (Ns Inj) 1,000 mls @ 0 mls/hr IV.SIG BOLUS [facility] Sodium Chloride (Ns Inj) 1,000 mls @ 75 mls/hr IV.CONT .[id number] [facility] Last Admin: 01/07/18 08:57 Dose: 75 mls/hr Levetiracetam (Keppra) 500 mg PO BID [facility] Last Admin: 01/07/18 08:59 Dose: 500 mg Morphine Sulfate (Morphine Inj) 2 mg IV.PUSH Q4H PRN PRN Reason: BREAKTHROUGH PAIN Senna/Docusate Sodium (Juliana-Colace) 1 tab PO BID [facility] Last Admin: 01/07/18 08:58 Dose: 1 tab Sodium Chloride (Ns Flush) 2 ml IV.FLUSH PRN PRN PRN Reason: FLUSH AFTER USING IV ACCESS Exam Vital signs: Vital Signs 01/06/18 19:30 01/06/18 20:00 01/07/18 00:00 Temperature 97.8 F 97.7 F Pulse Rate 55 L 63 52 L Respiratory Rate 15 20 20 Blood Pressure 110/82 100/59 L 81/43 L Pulse Oximetry 100 98 96 01/07/18 00:36 01/07/18 04:00 01/07/18 08:17 Temperature 97.7 F 98.2 F Pulse Rate 55 L 53 L Respiratory Rate 19 20 Blood Pressure 93/54 L 87/49 L 100/52 L Pulse Oximetry 94 L 99 01/07/18 09:19 01/07/18 13:03 Temperature 98.0 F Pulse Rate 51 L Respiratory Rate 20 Blood Pressure 97/54 L Pulse Oximetry 97 97 Intake & Output 01/06/18 01/07/18 01/07/18 18:59 06:59 18:59 Intake Total 592 / 592 1000 / 1000 Balance 592 / 592 1000 / 1000 Weight 95.254 kg 91.7 kg Intake: IV 1000 / 1000 NS Inj 1,000 ML @ 75 mls/hr IV. 1000 / 1000 CONT .[id number] JOSSELIN Rx#:[id number] Oral Other 562 / 562 Other: Other Intake Source Saline Solution # Voids 0 Date of Last Bowel Movement 01/06/18 Narrative: The patient is alert, awake and oriented to time, place and person. Speech is fluent. Cranial nerve examination demonstrates the pupils to be equal, round, and reactive to light. Extra-ocular movements are intact with normal convergence. Facial motor and sensory function are normal and symmetrical. Gross hearing is intact, bilaterally, to finger rub. The uvula is midline and elevates symmetrically with the soft palate. Sternocleidomastoid and deltoid muscles have normal and symmetrical strength. Other cranial nerves are intact. Neck is soft and supple. Cervical spine has a full range of motion in anterior flexion, extension, lateral bending, and rotation without pain. There is no tenderness to palpation to the spinous processes or paraspinal muscles. Muscle testing reveals normal bulk and tone overall without rigidity, spasticity , fasciculations, or atrophy. Muscle strength is 5/5 in all muscle groups of both upper extremities including deltoid, biceps, triceps, brachioradialis, wrist extension and food service associate. In the lower extremities, strength is 5/5 in both iliopsoas, quadriceps, hamstrings, plantar flexion, dorsiflexion, and extensor hallucis longus. Sensory examination is intact to light touch and sharp/dull discrimination in both the upper and lower extremities, symmetrically. Deep tendon reflexes are 2+ and symmetrical in the biceps, triceps, and brachioradialis, bilaterally, in the upper extremities. In the lower extremities , the patellar and Achilles are 2+, bilaterally. There is a bilateral plantar flexion response. Hoffmanns sign is negative. There is no clonus or other abnormal reflexes noted. Cerebellar examination is intact to [id number] test, rapid rhythmic alternating motion. No dysmetria, dysdiadochokinesia, truncal ataxia, or tremor noted. Lungs: clear Heart: Regular rhythm and rate Skin: warm and dry Results - Laboratory Findings CBC and BMP: 01/07/18 06:55 01/07/18 06:55 Abnormal lab findings: Abnormal Labs 01/06/18 01/06/18 01/07/18 14:03 14:03 06:55 RBC 4.42 L Hct 38.3 L Chloride Estimated GFR 78 L Calcium 7.7 L 7.8 L Prot Corrected Calcium 8.2 L AST Total Protein Albumin 01/07/18 06:55 RBC Hct Chloride 108 H Estimated GFR 73 L Calcium 8.1 L Prot Corrected Calcium AST 10 L Total Protein 6.2 L Albumin 3.1 L Assessment and Plan - Plan Neuro: neuro checks in a serial fashion. There is no indication for surgery. This patient needs a consultation to a neurologist, not a neurosurgeon. If there is concern about worsening mass effect, he should ne in an intensive care unit Pulmonary: aggressive pulmonary toilette, nasotracheal suction, and breathing treatments with nebulizers. Daily PT and OT Renal: Continue to monitor closely urine output, BUN and creatinine Endocrine: Continue to Monitor serial Acu checks and SSI as needed in detail ID continue to monitor for signs of infection Continue Protonix for stress ulcer prophylaxis Continue Shiv sunitae and SCD's for DVT prophylaxis <Carmencita Rutledge - Last Filed: 01/07/18 20:55> History of Present Illness Primary Care Provider: Lily Carpio Family Provider: No Primary Care Physician History of Present Illness: PMFSH - Medical History Medical History: Medical History (Last Reviewed 01/07/18 @ 20:50 by Edinson Ca MD) Bacteremia Chronic back pain Psoriasis Seizures HTN (hypertension) Rheumatoid arthritis - Surgical History Surgical History: Surgical History (Last Reviewed 01/07/18 @ 20:50 by Edinson Ca MD) History of hand surgery History of sinus surgery Hx of knee surgery - Family History Family History: Family History (Last Reviewed 01/07/18 @ 20:50 by Edinson Ca MD) Other CAD (coronary artery disease) Medications and Allergies Active Medications: Active Medications Acetaminophen (Tylenol) 650 mg PO Q4H PRN PRN Reason: Temp > 100.4 Hydrocodone Bitart/Acetaminophen ([facility] 5/325) 1 tab PO Q6H PRN PRN Reason: PAIN SCALE 1 TO 10 Alprazolam (Xanax) 0.5 mg PO Q4H PRN PRN Reason: ANXIETY Last Admin: 01/07/18 12:14 Dose: 0.5 mg Carisoprodol (Soma) 350 mg PO BID [facility] Last Admin: 01/07/18 08:58 Dose: 350 mg Sodium Chloride (Ns Inj) 1,000 mls @ 0 mls/hr IV.SIG BOLUS JOSSELIN Sodium Chloride (Ns Inj) 1,000 mls @ 75 mls/hr IV.CONT .[id number] [facility] Last Admin: 01/07/18 08:57 Dose: 75 mls/hr Levetiracetam (Keppra) 500 mg PO BID [facility] Last Admin: 01/07/18 08:59 Dose: 500 mg Senna/Docusate Sodium (Juliana-Colace) 1 tab PO BID [facility] Last Admin: 01/07/18 08:58 Dose: 1 tab Sodium Chloride (Ns Flush) 2 ml IV.FLUSH PRN PRN PRN Reason: FLUSH AFTER USING IV ACCESS Exam Vital signs: Vital Signs 01/06/18 19:30 01/06/18 20:00 01/07/18 00:00 Temperature 97.8 F 97.7 F Pulse Rate 55 L 63 52 L Respiratory Rate 15 20 20 Blood Pressure 110/82 100/59 L 81/43 L Pulse Oximetry 100 98 96 01/07/18 00:36 01/07/18 04:00 01/07/18 08:17 Temperature 97.7 F 98.2 F Pulse Rate 55 L 53 L Respiratory Rate 19 20 Blood Pressure 93/54 L 87/49 L 100/52 L Pulse Oximetry 94 L 99 01/07/18 09:19 01/07/18 13:03 01/07/18 16:00 Temperature 98.0 F 98.1 F Pulse Rate 51 L 61 Respiratory Rate 20 16 Blood Pressure 97/54 L 105/55 L Pulse Oximetry 97 97 97 Intake & Output 01/06/18 01/07/18 01/07/18 18:59 06:59 18:59 Intake Total 592 / 592 1000 / 1000 Balance 592 / 592 1000 / 1000 Weight 95.254 kg 91.7 kg Intake: IV 1000 / 1000 NS Inj 1,000 ML @ 75 mls/hr IV. 1000 / 1000 CONT .[id number] [facility] Rx#:[id number] Oral Other 562 / 562 Other: Other Intake Source Saline Solution # Voids 0 Date of Last Bowel Movement 01/06/18 Results - Laboratory Findings CBC and BMP: 01/07/18 06:55 01/07/18 06:55 Abnormal lab findings: Abnormal Labs 01/06/18 01/06/18 01/07/18 14:03 14:03 06:55 RBC 4.42 L Hct 38.3 L Chloride Estimated GFR 78 L Calcium 7.7 L 7.8 L Prot Corrected Calcium 8.2 L AST Total Protein Albumin 01/07/18 06:55 RBC Hct Chloride 108 H Estimated GFR 73 L Calcium 8.1 L Prot Corrected Calcium AST 10 L Total Protein 6.2 L Albumin 3.1 L
--- NOTE | 2018-01-07 17:10 | MR ---
EXAM DATE: 01/07/2018 4:24 PM EDT AGE/SEX: 57 years / Male INDICATIONS: Trauma. Right shoulder pain post fall off of ladder. CLINICAL DATA: This is the patient's subsequent encounter. Patient reports that signs and symptoms h ave been present for 1 day and indicates a pain score of 7/10. MEDICAL/SURGICAL HISTORY: Hypertension. . Hand surgery, sinus surgery and knee surgery. COMPARISON: No prior exams available for comparison. TECHNIQUE: Multiplanar, multisequence MRI examination was performed without contrast. FINDINGS: There is tendinosis in the supraspinatus tendon without full-thickness tear. Also tendinopathy in the infraspinatus tendon with a linear interstitial tear present. Small joint effusion. There is some te ndinosis in the subscapularis tendon and long head biceps tendon. There is abnormal marrow signal in the humeral head near the supraspinatus insertion. This may repres ent a small bone contusion. There is moderate degenerative change at the AC joint with hypertrophy. Osteoarthritis present at the glenohumeral joint with osteophyte formation. CONCLUSION: 1. Marrow edema within the superior humerus near the rotator cuff insertion which may represent a jagdish ne contusion. 2. Rotator cuff tendinopathy as above without full-thickness tear. Degenerative changes in the shoul junaid joint and AC joint. Electronically signed by: Rai Chin MD 01/07/2018 5:09 PM EDT
--- NOTE | 2018-01-07 20:54 | MB ---
cc: Ty Hearn MD, PhD DATE: 01/07/2018 REASON FOR CONSULTATION: Stroke. HISTORY OF PRESENT ILLNESS: Mr. Spencer is a 57-year-old man with history of hypertension, rheumatoid arthritis, chronic back pain and seizure disorder. He was on a ladder a couple of days ago, fell about 30 feet when it fell out from under him. He fell on his right shoulder and his back, has significant pain in the back and right shoulder. He has had tingling in the right shoulder, down to the fingertips. He has a history of grand mal seizure in the past. He feels pain in the right arm. Denies any other focal weakness. PAST MEDICAL HISTORY: He has a history of rheumatoid arthritis, chronic back pain, psoriasis, hypertension, seizure disorder. MEDICATIONS: He takes currently: 1. Keppra 500 b.i.d. 2. Soma. 3. Xanax p.r.n. 3. [place] p.r.n. 4. Colace p.r.n. NEUROLOGIC EXAMINATION: VITAL SIGNS: Blood pressure 105/55, pulse 61, respirations 16, temperature 98 degrees. NEUROLOGIC: Higher cortical functions normal. Cranial nerves: Intact. Motor exam: No focal deficits are identified. Reflexes are symmetric. Head CT reveals hypodensity right basal ganglia and centrum semiovale. MRI of the brain reveals evidence of acute infarction, nonhemorrhagic in the right MCA distribution involving temporal and parietal cortex and right striatum. There are scattered areas of restricted diffusion in the caudate nucleus in the right lateral striatum cortex and temporoparietal lobes, mild mass effect with narrowing of the right frontal lobe. No abnormal enhancement identified. No hemorrhage seen. Thoracic spine CT: Mild degenerative changes, no fracture. Lumbar spine CT: No acute fracture. Mild degenerative disk disease identified. Cervical spine CT: No acute fracture or subluxation. There are multiple degenerative changes, which appear to be chronic, predominantly. Chest x-ray normal. LABORATORY DATA: White count is 7000, hemoglobin 13, hematocrit 38%, platelets 253,000. PT 10.7, INR 1.1, aPTT 25.8. Sodium is 139, potassium 4.2, chloride 108, CO2 is 24.7. The BUN is 12, creatinine 1.05. Glucose is 87. AST 10, ALT is 14. PT 10.7, INR 1.1, aPTT 25.8. IMPRESSION: The patient has evidence of an acute right hemisphere stroke on MRI following trauma. This is in multiple areas of the right MCA distribution. Given the history of trauma, would like to get a CT angiogram of the neck, carotids as well as the brain to rule out dissection. PLAN: We will start the patient on aspirin 325 mg daily. Also obtain echocardiogram. Because of the extensive nature of the infarctions, we will transfer the patient to the ICU for closer neurological monitoring. Thank you for asking me to see this nice patient in consult. Ty Hearn MD, PhD RHEA/ct , 08:05 PM , 08:12 PM
[2018-01-07] MEDS: Aspirin 325 MG Tablet PO SCH (21:33)
--- NOTE | 2018-01-07 22:19 | CT ---
EXAM DATE: 01/07/2018 8:45 PM EDT AGE/SEX: 57 years / Male INDICATIONS: Trauma, patient fell off ladder, abnormal MRI. Rule out right carotid dissection. CLINICAL DATA: This is the patient's initial encounter. Patient reports that signs and symptoms have been present for 1 day and indicates a pain score of 0/10. MEDICAL/SURGICAL HISTORY: Hypertension. Seizures. Rheumatoid arthritis. None. RADIATION DOSE: 9.94 CTDI (mGy) ; Combined studies COMPARISON: [facility] [place] HEAD W & W/O CONTRAST, 01/06/2018. . TECHNIQUE: Volumetric scanning was performed using a multirow detector CT scanner during bolus infus ion of 95 ml Omnipaque 350 (iohexol) nonionic water-soluble contrast as a cumulative dose for multip le exams. The data was postprocessed with a variety of visualization algorithms including full-volu me maximum intensity projection, multiplanar sliding thin-slab reformation, curved-planar reformation , and surface-rendering techniques. Using automated exposure control and adjustment of the mA and/or kV according to patient size, radiation dose was kept as low as reasonably achievable to obtain opti mal diagnostic quality images. DICOM format image data is available electronically for review and co mparison. FINDINGS: Aortic Arch: There is a three-vessel origin of the great vessels from the aorta. No evidence of ost ial narrowing Right Carotid: The common carotid artery is intact. The carotid bulb has a normal configuration wit hout ulceration or narrowing. The internal carotid artery lumen is smooth without stenosis. The ext ernal carotid artery is intact. Left Carotid: The common carotid artery is intact. The carotid bulb has a normal configuration with out ulceration or narrowing. The internal carotid artery lumen is smooth without stenosis. The exte rnal carotid artery is intact. Vertebrals: The vertebral arteries have a symmetric diameter. No stenotic lesions are seen. Percent stenosis is calculated using the diameter of the stenotic region over the diameter of the nor mal distal internal carotid artery. CONCLUSION: 1. Normal CTA of the carotids. Electronically signed by: Balaji Patel MD 01/07/2018 10:17 PM EDT
--- NOTE | 2018-01-07 22:21 | CT ---
EXAM DATE: 01/07/2018 8:45 PM EDT AGE/SEX: 57 years / Male INDICATIONS: Trauma, patient fell off ladder, abnormal MRI. CLINICAL DATA: This is the patient's initial encounter. Patient reports that signs and symptoms have been present for 1 day and indicates a pain score of 8/10. MEDICAL/SURGICAL HISTORY: Hypertension. Seizures. Rheumatoid arthritis. None. RADIATION DOSE: 9.94 CTDI (mGy) ; Combined studies COMPARISON: [facility] [place], CT HEAD W/O CONTRAST, 01/06/2018. [facility] [place], MR HEAD W & W/O CONTRAST, 01/06/2018. . TECHNIQUE: Volumetric scanning was performed using a multi-row detector CT scanner during bolus infu ron of 95 ml Omnipaque 350 (iohexol) nonionic water-soluble contrast as a cumulative dose for multi ple exams. The data was post processed with a variety of visualization algorithms including full vo lume maximum intensity projection, multi-planar sliding thin slab reformation, curved planar reformat ion, and surface rendering techniques. Using automated exposure control and adjustment of the mA and /or kV according to patient size, radiation dose was kept as low as reasonably achievable to obtain o ptimal diagnostic quality images. DICOM format image data is available electronically for review and comparison. FINDINGS: There is excellent visualization of the major intracranial arteries out to the second-order branch ve ssels. There is no evidence for aneurysm, vessel truncation or stenosis, and no evidence for vascula r malformation. Flow is seen in the anterior communicating artery. CONCLUSION: 1. Negative CTA of the [place]. Electronically signed by: Balaji Patel MD 01/07/2018 10:19 PM EDT
[2018-01-08] MEDS: Morphine Inj 4 MG/ML Vial IV.PUSH PRN ×6 (01:34→23:34)
[2018-01-08] MEDS: Carisoprodol 350 MG Tablet PO SCH ×3 (02:00→18:00)
--- NOTE | 2018-01-08 02:03 | P.CONCC ---
History of Present Illness Service: Critical Care Medicine Consult date: 01/07/18 Requesting Physician: Ty Hearn Reason for Consult: Critical care management of patient with MCA stroke, risk for decompensatio Primary Care Provider: Lily Carpio Family Provider: No Primary Care Physician Chief Complaint: Fall History of Present Illness: 57-year-old male with past medical history of hypertension, chronic pain which he reports is secondary to rheumatoid arthritis, psoriasis, seizure disorder with onset about 3 months ago, ongoing tobacco abuse. He states that earlier today he was standing on a 30 foot ladder at about the 25 foot level when the ladder "kicked out from under him" and he fell on outstretched right arm and onto his tailbone. He denies loss of consciousness; denies head trauma. He states his primary complaint was right shoulder pain at the proximal humerus and at the right AC joint. He has undergone imaging workup including CT chest, abdomen and pelvis, C/T/L spine, x-ray humerus which were negative for acute disease. CT brain demonstrated hypodensity in the right frontoparietal convexities and right basal ganglia felt to be consistent with subacute infarction. There was no evidence of hemorrhage. MRI brain was consistent with acute right MCA infarct, R frontoparietal and caudate. CTA neck and brain were performed to evaluate for dissection and these are negative. Dr. Ty Hearn has evaluated and requested transfer to [facility] for close neuro monitoring. Review of Systems Constitutional: Denies fever(s), Denies headache(s) Eyes: Denies blurry vision, Denies change in vision Ears, Nose, Mouth, and Throat: Denies bleeding gums, Denies nasal trauma Cardiovascular: Denies chest pain Respiratory: Denies cough, Denies shortness of breath Gastrointestinal: Denies abdominal pain Genitourinary: Denies difficulty with ejaculations Musculoskeletal: Reports joint pain, Reports numbness (volar aspect right hand) Hematologic/Lymphatic: Denies easy bleeding, Denies easy bruising Allergic/Immunologic: Denies GI upset with certain foods PMFSH - History History Provided By: Patient - Medical History Medical History: Medical History (Last Updated 01/08/18 @ 02:54 by Kavya Daugherty MD) Bacteremia Chronic back pain Psoriasis Seizures HTN (hypertension) Rheumatoid arthritis - Surgical History Surgical History: Surgical History (Last Updated 01/08/18 @ 02:52 by Kavya Daugherty MD) History of hand surgery History of sinus surgery Hx of knee surgery - Family History Family History: Family History (Last Updated 01/08/18 @ 02:53 by Kavya Daugherty MD) Mother CAD (coronary artery disease) Father CAD (coronary artery disease) - Tobacco History Second Hand Smoke Exposure: No Tobacco Use In Past 30 Days: Yes Smoking Status: Heavy tobacco smoker Tobacco Type: Cigarettes - Alcohol History How Often Do You Have a Drink Containing Alcohol: 2 to 4 times a month - Substance Use History Substance History: No History of Abuse - Travel History Recent Travel in the [place] Within the Last 8 Weeks: No Recent Travel Out of the Country Within the Last 8 Weeks: No - Immunization History Tetanus Immunization: <5 Years Hx Influenza Vaccine This Season: No Medications and Allergies Active Medications: Active Medications Acetaminophen (Tylenol) 650 mg PO Q4H PRN PRN Reason: Temp > 100.4 Hydrocodone Bitart/Acetaminophen (Tynan 10/325) 1 tab PO Q6H PRN PRN Reason: pain Alprazolam (Xanax) 0.5 mg PO Q4H PRN PRN Reason: ANXIETY Last Admin: 01/07/18 12:14 Dose: 0.5 mg Alprazolam (Xanax) 0.5 mg PO Q8H PRN PRN Reason: ANXIETY Last Admin: 01/07/18 21:33 Dose: 0.5 mg Aspirin (Aspirin) 325 mg PO DAILY [facility] Last Admin: 01/07/18 21:33 Dose: 325 mg Carisoprodol (Soma) 350 mg PO BID [facility] Last Admin: 01/08/18 02:00 Dose: 350 mg Sodium Chloride (Ns Inj) 1,000 mls @ 0 mls/hr IV.SIG BOLUS [facility] Sodium Chloride (Ns Inj) 1,000 mls @ 75 mls/hr IV.CONT .[id number] [facility] Last Admin: 01/07/18 21:23 Dose: Not Given Levetiracetam (Keppra) 500 mg PO BID [facility] Last Admin: 01/07/18 20:22 Dose: 500 mg Morphine Sulfate (Morphine Inj) 4 mg IV.PUSH Q4H PRN PRN Reason: breakthrough pain Last Admin: 01/08/18 01:34 Dose: 4 mg Senna/Docusate Sodium (Juliana-Colace) 1 tab PO BID [facility] Last Admin: 01/07/18 21:33 Dose: 1 tab Sodium Chloride (Ns Flush) 2 ml IV.FLUSH PRN PRN PRN Reason: FLUSH AFTER USING IV ACCESS Allergies Allergy/AdvReac Type Severity Reaction Status Date / Time *MDRO Multi-Drug Resistant AdvReac Unknown MRSA Uncoded 01/06/18 13:35 Organism Home Medications Medication Instructions Recorded Confirmed Type hydrocodone-acetaminophen 1 tab PO Q4-6H PRN 11/19/17 01/06/18 History lisinopril 10 mg PO DAILY 11/19/17 01/06/18 History carisoprodol [Soma] 350 mg PO BID 01/06/18 01/06/18 History levetiracetam [Keppra] 500 mg PO BID 01/06/18 01/06/18 History Physical Exam Vital signs: Vital Signs 01/07/18 04:00 01/07/18 08:17 01/07/18 09:19 Temperature 97.7 F 98.2 F Pulse Rate 55 L 53 L Respiratory Rate 19 20 Blood Pressure 87/49 L 100/52 L Pulse Oximetry 94 L 99 97 01/07/18 13:03 01/07/18 16:00 01/07/18 20:00 Temperature 98.0 F 98.1 F 98.2 F Pulse Rate 51 L 61 57 L Respiratory Rate 20 16 19 Blood Pressure 97/54 L 105/55 L 111/66 Pulse Oximetry 97 97 98 01/07/18 21:15 01/08/18 00:00 01/08/18 01:59 Temperature 97.9 F 98.1 F Pulse Rate 60 46 L Respiratory Rate 21 22 14 Blood Pressure 125/67 125/62 Pulse Oximetry 98 99 Intake & Output 01/07/18 01/07/18 01/08/18 06:59 18:59 06:59 Intake Total 592 / 592 1900 / 1900 Balance 592 / 592 1900 / 1900 Weight 91.7 kg Intake: IV 1000 / 1000 NS Inj 1,000 ML @ 75 mls/hr IV. 1000 / 1000 CONT .[id number] [facility] Rx#:[id number] Oral 30 / 30 900 / 900 Oral Supplement 0 / 0 Other 562 / 562 Other: Other Intake Source Saline Solution # Voids 0 Date of Last Bowel Movement 01/06/18 01/07/18 Narrative: GENERAL: Well-nourished, well-developed patient who is sitting up on side of [facility] bed alert and interactive. SKIN: Warm and dry, well perfused. HEAD: Atraumatic. Normocephalic. EYES: Pupils equal and round, 4 mm reactive bilaterally.. No scleral icterus. No injection or drainage. ENT: No nasal bleeding or discharge. Mucous membranes pink and moist. NECK: Trachea midline. No JVD. CARDIOVASCULAR: Regular rate and rhythm. No murmurs rubs or gallops. RESPIRATORY: No accessory muscle use. Clear to auscultation. Breath sounds equal bilaterally. On room air GASTROINTESTINAL: Abdomen soft, non-tender, nondistended. Bowel sounds present. MUSCULOSKELETAL: Extremities without clubbing, cyanosis, or edema. No obvious deformities. Tenderness right proximal humerus and right acromioclavicular joint. +pain with R shoulder abduction. NEUROLOGICAL: Awake and alert, normal speech, oriented x3.. No obvious cranial nerve deficits aside from slight L lower facial droop. Extraocular movements intact. Tongue protrusion midline. No pronator drift. Strength 5/5 deltoid on the left, did not test right due to shoulder pain. 5/5 biceps/triceps/hand intrinsics. Strength 5/5 BLE. No clonus. Reports numbness of volar aspect of right hand, all digits. Assessment and Plan - Problem List (1) Ischemic stroke Code(s): I63.9 - Cerebral infarction, unspecified Status: Acute (2) Seizure disorder Code(s): G40.909 - Epilepsy, unspecified, not intractable, without status epilepticus Status: Chronic (3) Chronic pain Code(s): G89.29 - Other chronic pain Status: Chronic (4) Tendinopathy of right rotator cuff Code(s): M67.911 - Unspecified disorder of synovium and tendon, right shoulder Status: Acute (5) Tendinopathy of right biceps tendon Code(s): M67.921 - Unspecified disorder of synovium and tendon, right upper arm Status: Acute (6) HTN (hypertension) Code(s): I10 - Essential (primary) hypertension Status: Chronic (7) Tobacco abuse Code(s): Z72.0 - Tobacco use Status: Chronic (8) Fall Code(s): W19.XXXA - Unspecified fall, initial encounter Status: Acute (9) Anxiety Code(s): F41.9 - Anxiety disorder, unspecified Status: Chronic (10) Contusion Code(s): T14.8XXA - Other injury of unspecified body region, initial encounter Status: Acute - Assessment and Plan Plan: NEURO: Fall from 25 feet Acute ischemic stroke, right MCA CTA brain and neck negative for dissection Obtain lipid studies, 2D echo Aspirin 325 mill grams p.o. daily per neurology Neurology following, Dr. Ty Hearn. Neurochecks every 2 hour in [facility]. Seizure disorder Diagnosed with new onset seizure disorder about 3 months ago at [facility] Continue Keppra 500 mg p.o. twice daily Acute on chronic pain Lortab 1 tab p.o. Morphine as needed for breakthrough pain. Soma 350 mill grams p.o. twice daily which patient states is a long-term medication Anxiety Xanax 0.5 p.o. every 8 hours as needed RESP: Ongoing tobacco abuse I have discussed tobacco cessation in detail, particularly emphasizing the risk of recurrent stroke and disability or . CV: Essential hypertension Monitor hemodynamics. He is currently in sinus rhythm. Continue telemetry Permissive hypertension for now (though he is actually normotensive SBP 120). He states he is on lisinopril 10 mg p.o. daily at home. Follow-up echo. 0.9 NaCl at 75 mill liters per hour GI: Noted speech therapy consult to evaluate swallow. Regular diet. Juliana-Colace twice daily FEN/RENAL: Voiding. Monitor BMP. ID: For signs and symptoms of infection. Patient states he was treated for bacteremia at [facility] 3 months ago. He was discharged on Bactrim and states he completed the antibiotic course. HEME: No acute hematologic issues. ENDO: Check TSH and hemoglobin A1c MSK: Right humerus contusion Right rotator cuff tendinopathy Sling and swath has been ordered. PT has been ordered. Will contain OT consult. MRI right supraspinatus tendinosis without tear, right infraspinatus linear interstitial tear (not full thickness). Tendinosis biceps tendon and subscapularis. PROPH: SCDs for DVT prophylaxis. Dr. Hearn recommends against anticoagulation at this point due to risk of hemorrhagic conversion, initiate prophylactic dose when appropriate per neurology. Stress ulcer prophylaxis is not indicated. ACCESS: Peripheral IV providing adequate access at this time. Patient is alert and protecting his airway without significant neurologic deficit at this time. Monitoring neuro exam in [facility] due to risk of hemorrhagic conversion. CCM will follow through 01/08. Hospitalist to assume care 01/09 unless clinical deterioration. FULL CODE Level 3 consult (6) HTN (hypertension) Qualifiers: Hypertension type: essential hypertension Qualified Code(s): I10 - Essential (primary) hypertension (8) Fall Qualifiers: Encounter type: initial encounter Qualified Code(s): W19.XXXA - Unspecified fall, initial encounter (10) Contusion Qualifiers: Contusion area: upper arm
[2018-01-08] MEDS: Sod Chloride 0.9% Inj 1,000 ML IV.CONT SCH ×2 (03:56→18:01)
[2018-01-08 08:04] LABS: Chol/HDL Ratio 4.14 Ratio; HDL Cholesterol 32.6 mg/dL (40.0-60.0)
[2018-01-08] MEDS: levETIRAcetam 500 MG Tablet PO SCH ×2 (08:13→20:18)
[2018-01-08] MEDS: Aspirin 325 MG Tablet PO SCH (08:14)
[2018-01-08] MEDS: Senna/Docusate Sodium 8.6/50 MG Tablet PO SCH ×2 (08:14→20:18)
[2018-01-08] MEDS: ALPRAZolam 0.5 MG Tablet PO PRN ×2 (09:30→20:18)
--- NOTE | 2018-01-08 10:02 | P.PNNS ---
Subjective Interval history: pt reports to be doing well, c/o right shoulder pain - MRI R shoulder done yesterday. denies new neurological complaints. transferred to [facility] for closer neuro monitoring. Physical Exam Vital signs: Vital Signs 01/07/18 13:03 01/07/18 16:00 01/07/18 20:00 Temperature 98.0 F 98.1 F 98.2 F Pulse Rate 51 L 61 57 L Respiratory Rate 20 16 19 Blood Pressure 97/54 L 105/55 L 111/66 Pulse Oximetry 97 97 98 01/07/18 21:15 01/08/18 00:00 01/08/18 01:59 Temperature 97.9 F 98.1 F Pulse Rate 60 46 L Respiratory Rate 21 22 14 Blood Pressure 125/67 125/62 Pulse Oximetry 98 99 01/08/18 03:56 01/08/18 04:00 01/08/18 06:22 Temperature 97.9 F Pulse Rate 46 L Respiratory Rate 16 22 14 Blood Pressure 136/73 Pulse Oximetry 99 01/08/18 08:00 Temperature Pulse Rate Respiratory Rate Blood Pressure Pulse Oximetry 97 Intake & Output 01/07/18 01/08/18 01/08/18 18:59 06:59 18:59 Intake Total 1900 / 1900 1240 / 1240 Balance 1900 / 1900 1240 / 1240 Weight 93.9 kg Intake: IV 1000 / 1000 1000 / 1000 NS Inj 1,000 ML @ 75 mls/hr IV. 1000 / 1000 1000 / 1000 CONT .[id number] [facility] Rx#:[id number] Oral 900 / 900 240 / 240 Oral Supplement 0 / 0 Other: # Voids 4 Date of Last Bowel Movement 01/07/18 Weight On Admission 93.9 kg Narrative: GENERAL: Pleasant gentleman sitting in chair in no distress. SKIN: Warm and dry. HEAD: Atraumatic. Normocephalic. EYES: Pupils equal and round. No scleral icterus. No injection or drainage. ENT: No nasal bleeding or discharge. Mucous membranes pink and moist. NECK: Trachea midline. No JVD. CARDIOVASCULAR: Regular rate and rhythm. RESPIRATORY: No accessory muscle use. Clear to auscultation. Breath sounds equal bilaterally. GASTROINTESTINAL: Abdomen soft, non-tender. MUSCULOSKELETAL: Decreased ROM R shoulder with pain. Extremities without clubbing, cyanosis, or edema. No obvious deformities. NEUROLOGICAL: Awake and alert. Speech fluent, conversing well. Slight decrease left NLF. Pupils equal, EOMS intact. 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 5/5 bilateral LE. PSYCHIATRIC: Appropriate mood and affect; insight and judgment normal. Assessment and Plan - Plan Impression: 57 year old male fall off ladder 20 feet, presented with complaints of right shoulder and arm pain work up showed incidental finding of R ischemic stroke - no significant mass effect or midline shift. pt was not complaining of stroke like symptoms Head MRI 01/06/18 16:57 CONCLUSION: 1. Findings are characteristic of acute nonhemorrhagic infarct right MCA distribution involving temporal and parietal cortex parietal, and right striatum. 2. No evidence of acute blood products or extra-axial fluid collections. Head CTA 01/07/18 20:06 CONCLUSION: 1. Negative CTA of the [place]. Neck CTA 01/07/18 20:06 CONCLUSION: 1. Normal CTA of the carotids. Head CT 01/06/18 13:04 CONCLUSION: 1. Focal region of hypodensity in the right basal ganglia extending to the centrum semiovale and right frontoparietal mid to high convexities measuring approximately 3.7 x 1.7 cm with mild associated mass effect on the right lateral ventricle. No definitive evidence for hemorrhage in this region or volume loss. Favor subacute infarction. Consider contrast-enhanced MRI examination for better evaluation. Cervical Spine CT 01/06/18 13:04 CONCLUSION: 1. No acute fracture or subluxation. 2. Multilevel facet arthropathy. Lumbar Spine CT 01/06/18 13:04 CONCLUSION: 1. No acute fracture or subluxation. 2. Mild multilevel degenerative spondylosis of the lumbar spine, as above. Thoracic Spine CT 01/06/18 13:04 CONCLUSION: 1. No acute fracture or subluxation. 2. Mild degenerative spondylosis of the lower thoracic spine, as above. Shoulder MRI 01/07/18 00:00 CONCLUSION: 1. Marrow edema within the superior humerus near the rotator cuff insertion which may represent a bone contusion. 2. Rotator cuff tendinopathy as above without full-thickness tear. Degenerative changes in the shoulder joint and AC joint. Plan: Dr. Ca reviewed MRI Brain, cont neuro checks There is no indication for surgery Neurology consulted for stroke management Cont therapy
--- NOTE | 2018-01-08 11:03 | MG ---
cc: Rodolfo Cano MD EEG NUMBER: [id number] INDICATIONS: Acute right MCA infarct. Bacteremia. MEDICATIONS: Keppra, Soma. INTERPRETATION: A symmetric 9 Hz, 60 microvolt rhythm is seen. Some diffuse beta rhythms are noted. Muscle artifact seen over the right temporal lobe head region. No major hemisphere asymmetry is seen. No epileptiform or seizure activity is noted. Photic stimulation is performed without significant posterior driving. Hyperventilation not performed. IMPRESSION: Some what looks like medication effect, but no focal abnormalities noted. No seizure activity was seen, especially over the right hemisphere. Rodolfo Cano MD DJM/celestine , 10:43 AM , 10:48 AM
--- NOTE | 2018-01-08 15:26 | ECG ---
Date Performed: 01/07/2018 Time Performed: 23:07:02 PTAGE: 57 years EKG: Sinus bradycardia with 1st degree A-V block. Poor R wave progression - probable normal vari ant Low QRS voltages in precordial leads Abnormal ECG Since the PREVIOUS TRACING , no significant change noted PREVIOUS TRACIN07/18/2004 20.07 DOCTOR: Tali Gee Interpretating Date/Time 01/08/2018 15:18:43
--- NOTE | 2018-01-08 15:58 | ECHRPT ---
Indication: cva/tia CONCLUSIONS The left ventricular systolic function is normal with an estimated ejection fraction in the range of 60-65%. Normal left ventricular size and wall thickness. No significant valvular heart disease. Normal atrial septal thickness without atrial level shunting by limited color doppler interrogation. There is a trivial pericardial effusion present. BP: / HR: Rhythm: MEASUREMENTS (Male / Female) Normal Values Technical Quality:fair 2D ECHO LV Diastolic Diameter PLAX 5.1 cm 4.2 - 5.9 / 3.9 - 5.3 cm LV Systolic Diameter PLAX 3.8 cm IVS Diastolic Thickness 1.0 cm 0.6 - 1.0 / 0.6 - 0.9 cm LVPW Diastolic Thickness 0.7 cm 0.6 - 1.0 / 0.6 - 0.9 cm LV Relative Wall Thickness 0.3 RV Internal Dim ED PLAX 1.7 cm LA Systolic Diameter LX 3.5 cm 3.0 - 4.0 / 2.7 - 3.8 cm M-MODE Aortic Root Diameter MM 3.0 cm AV Cusp Separation MM 2.2 cm DOPPLER Mitral E Point Velocity 73.5 cm/s Mitral A Point Velocity 68.6 cm/s Mitral E to A Ratio 1.1 TR Peak Velocity 265.0 cm/s TR Peak Gradient 28.1 mmHg Right Atrial Pressure 10.0 mmHg Pulmonary Artery Systolic Pressu 38.1 mmHg Right Ventricular Systolic Press 38.1 mmHg FINDINGS LEFT VENTRICLE Normal left ventricular size. Wall thickness is normal. The left ventricular systolic function is normal with an estimated ejection fraction in the range of 60-65%. RIGHT VENTRICLE Normal right ventricular size and systolic function. LEFT ATRIUM The left atrial size is normal. RIGHT ATRIUM The right atrial size is normal. ATRIAL SEPTUM Normal atrial septal thickness without atrial level shunting by limited color doppler interrogation. AORTA The aortic root and proximal ascending aorta are normal in size on limited imaging. MITRAL VALVE Trace mitral valve regurgitation. AORTIC VALVE Trileaflet aortic valve. No aortic valve stenosis or regurgitation. TRICUSPID VALVE Structurally normal tricuspid valve. No tricuspid valve stenosis or regurgitation. PULMONARY VALVE No pulmonary valve regurgitation or stenosis. VESSELS The inferior vena cava is normal in size. PERICARDIUM There is a trivial pericardial effusion present. Mabel Darden MD (Electronically Signed) Final Date:08 January 2018 15:57
[2018-01-08 17:48] LABS: Hemoglobin A1c 5.1 % (4.3-6.0)
--- NOTE | 2018-01-08 18:32 | P.PNNEU ---
Subjective Subjective Comments: no new neurologic sx--denies focal weakness or numbness or speech changes Active Medications: Active Medications Acetaminophen (Tylenol) 650 mg PO Q4H PRN PRN Reason: Temp > 100.4 Hydrocodone Bitart/Acetaminophen ([place] 10/325) 1 tab PO Q4H PRN PRN Reason: pain Alprazolam (Xanax) 0.5 mg PO Q4H PRN PRN Reason: ANXIETY Last Admin: 01/07/18 12:14 Dose: 0.5 mg Alprazolam (Xanax) 0.5 mg PO Q8H PRN PRN Reason: ANXIETY Last Admin: 01/08/18 09:30 Dose: 0.5 mg Aspirin (Aspirin) 325 mg PO DAILY [facility] Last Admin: 01/08/18 08:14 Dose: 325 mg Carisoprodol (Soma) 350 mg PO Q8H [facility] Last Admin: 01/08/18 18:00 Dose: 350 mg Sodium Chloride (Ns Inj) 1,000 mls @ 0 mls/hr IV.SIG BOLUS [facility] Sodium Chloride (Ns Inj) 1,000 mls @ 75 mls/hr IV.CONT .[id number] [facility] Last Admin: 01/08/18 18:01 Dose: 75 mls/hr Levetiracetam (Keppra) 500 mg PO BID [facility] Last Admin: 01/08/18 08:13 Dose: 500 mg Morphine Sulfate (Morphine Inj) 4 mg IV.PUSH Q3H PRN PRN Reason: breakthrough pain Senna/Docusate Sodium (Juliana-Colace) 1 tab PO BID [facility] Last Admin: 01/08/18 08:14 Dose: 1 tab Sodium Chloride (Ns Flush) 2 ml IV.FLUSH PRN PRN PRN Reason: FLUSH AFTER USING IV ACCESS Allergies/Adverse Reactions: Allergies Allergy/AdvReac Type Severity Reaction Status Date / Time *MDRO Multi-Drug Resistant AdvReac Unknown MRSA Uncoded 01/06/18 13:35 Organism Physical Exam Vital signs: Vital Signs 01/07/18 20:00 01/07/18 21:15 01/08/18 00:00 Temperature 98.2 F 97.9 F 98.1 F Pulse Rate 57 L 60 46 L Respiratory Rate 19 21 22 Blood Pressure 111/66 125/67 125/62 Pulse Oximetry 98 98 99 01/08/18 01:59 01/08/18 03:56 01/08/18 04:00 Temperature 97.9 F Pulse Rate 46 L Respiratory Rate 14 16 22 Blood Pressure 136/73 Pulse Oximetry 99 01/08/18 06:22 01/08/18 08:00 01/08/18 12:00 Temperature 98.0 F 98.0 F Pulse Rate 52 L 54 L Respiratory Rate 14 14 12 Blood Pressure 149/70 H 124/61 Pulse Oximetry 100 100 Intake & Output 01/07/18 01/08/18 01/08/18 18:59 06:59 18:59 Intake Total 1900 / 1900 1240 / 1240 1000 / 1000 Balance 1900 / 1900 1240 / 1240 1000 / 1000 Weight 93.9 kg Intake: IV 1000 / 1000 1000 / 1000 1000 / 1000 NS Inj 1,000 ML @ 75 mls/hr IV. 1000 / 1000 1000 / 1000 1000 / 1000 CONT .[id number] JOSSELIN Rx#:[id number] Oral 900 / 900 240 / 240 Oral Supplement 0 / 0 Other: # Voids 4 Date of Last Bowel Movement 01/07/18 01/07/18 Weight On Admission 93.9 kg - Routine Neurological Exam alert, oriented, speech normal CN intact MOTOR---5/5 BUE and BLE. No drift, normal fine motor skills Objective Laboratory Results - last 24 hr 01/08/18 01/08/18 01/08/18 07:20 07:20 07:20 Triglycerides 103 Cholesterol 135 LDL Cholesterol, Calc 82 HDL Cholesterol 32.6 L Cholesterol/HDL Ratio 4.14 TSH 0.327 L Free T4 1.27 Total T3 01/08/18 07:20 Triglycerides Cholesterol LDL Cholesterol, Calc HDL Cholesterol Cholesterol/HDL Ratio TSH Free T4 Total T3 85 Review/Management - Diagnosis (1) CVA (cerebral vascular accident) Code(s): I63.9 - Cerebral infarction, unspecified Status: Acute Current Visit: Yes - Review/Management Plan: continue aspirin 325 mg daily follow up echocardiogram. Monitor telemetry r/o afib. There is no evidence for arterial dissection on the cta (1) CVA (cerebral vascular accident) Qualifiers: CVA mechanism: unspecified Qualified Code(s): I63.9 - Cerebral infarction, unspecified
[2018-01-09] MEDS: Carisoprodol 350 MG Tablet PO SCH ×2 (01:40→10:02)
[2018-01-09] MEDS: Morphine Inj 4 MG/ML Vial IV.PUSH PRN ×2 (06:05→13:10)
--- NOTE | 2018-01-09 07:53 | P.PN ---
Subjective Interval history: Well overnight, reports improved pain. Patient is tolerating p.o., voiding/ stooling well. Patient desires discharge. Physical Exam Vital signs: Vital Signs 01/08/18 08:00 01/08/18 12:00 01/08/18 16:00 Temperature 98.0 F 98.0 F 98.2 F Pulse Rate 52 L 54 L 50 L Respiratory Rate 14 12 16 Blood Pressure 149/70 H 124/61 116/66 Pulse Oximetry 100 100 100 01/08/18 20:00 01/08/18 20:12 01/08/18 20:33 Temperature 98.0 F Pulse Rate 50 L Respiratory Rate 23 19 Blood Pressure 109/59 L Pulse Oximetry 100 100 01/08/18 22:28 01/09/18 00:00 01/09/18 02:29 Temperature 98.2 F Pulse Rate 47 L Respiratory Rate 15 20 18 Blood Pressure 118/65 Pulse Oximetry 99 01/09/18 04:00 Temperature 98.0 F Pulse Rate 48 L Respiratory Rate 14 Blood Pressure 94/55 L Pulse Oximetry 95 Intake & Output 01/08/18 01/09/18 01/09/18 18:59 06:59 18:59 Intake Total 1959 Balance 1959 Weight 92.3 kg Intake: IV 1000 / 1000 NS Inj 1,000 ML @ 75 mls/hr IV. 1000 / 1000 CONT .[id number] JOSSELIN Rx#:[id number] Oral 960 / 960 Other: # Voids 4 5 Date of Last Bowel Movement 01/07/18 01/08/18 Narrative: GENERAL: Well-nourished male, in NAD, lying comfortably in bed SKIN: Warm and dry. HEAD: Atraumatic. Normocephalic. EYES: Pupils equal and round. No scleral icterus. No injection or drainage. ENT: No nasal bleeding or discharge. Mucous membranes pink and moist. NECK: Trachea midline. No JVD. CARDIOVASCULAR: Regular rate and rhythm. RESPIRATORY: No accessory muscle use. Clear to auscultation. Breath sounds equal bilaterally. GASTROINTESTINAL: Abdomen soft, non-tender. MUSCULOSKELETAL: Decreased ROM R shoulder with pain. NEURO: AAOx3, nml speech, PERRLA. Deltoid strength exam limited right arm due to shoulder pain, otherwise 5/5. PSYCHIATRIC: Appropriate mood and affect; insight and judgment normal. Results - Labs CBC & Chem 7: 01/07/18 06:55 01/07/18 06:55 Laboratory Results - last 24 hr 01/08/18 01/08/18 01/08/18 07:20 07:20 07:20 Hemoglobin A1c 5.1 Triglycerides 103 Cholesterol 135 LDL Cholesterol, Calc 82 HDL Cholesterol 32.6 L Cholesterol/HDL Ratio 4.14 TSH 0.327 L Free T4 Total T3 01/08/18 01/08/18 07:20 07:20 Hemoglobin A1c Triglycerides Cholesterol LDL Cholesterol, Calc HDL Cholesterol Cholesterol/HDL Ratio TSH Free T4 1.27 Total T3 85 Assessment and Plan - Plan This is a 57-year-old male with PMHx of HTN, Chronic pain secondary to rheumatoid arthritis, and seizure disorder admitted for fall with MRI brain consistent with acute right MCA infarct, R frontoparietal and caudate, patient managed in [facility] for close neuro monitoring, HD#3 1. Acute ischemic stroke, Right MCA CTA brain and neck negative for dissection LDL 80 Echo WNL Cont. ASA Neurology following, appreciate assistance with mgmt Neurochecks every 2 hour in [facility] ECHO CONCLUSIONS: The left ventricular systolic function is normal with an estimated ejection fraction in the range of 60-65%. Normal left ventricular size and wall thickness. No significant valvular heart disease. Normal atrial septal thickness without atrial level shunting by limited color doppler interrogation. There is a trivial pericardial effusion present. 2. Hx of Seizure Disorder Diagnosed with new onset seizure disorder about 3 months ago at [facility] Continue Keppra 3. Acute on chronic pain Cont. Lortab 10/325 1 tab p.o. Morphine PRN Soma 350 mill grams p.o. twice daily which patient states is a long-term medication 4. Anxiety Cont. Xanax PRN 5. Smoker Encouraged cessation 6. HTN Continue telemetry Permissive hypertension for now (though he is actually normotensive). He states he is on lisinopril 10 mg p.o. daily at home (holding) 7. ENDOCRINE: Borderline TSH, T4 WNL Hemoglobin A1c pending 8. Right rotator cuff tendinopathy Sling and swath has been ordered PT/OT MRI right supraspinatus tendinosis without tear, right infraspinatus linear interstitial tear (not full thickness). Tendinosis biceps tendon and subscapularis. 9. SVT PPX: SCD's 10. Dispo: stable, cont. IP mgmt, F/U Neuro reccs Code Status: full Discussed Condition With: patient, RN
[2018-01-09] MEDS: levETIRAcetam 500 MG Tablet PO SCH (08:55)
[2018-01-09] MEDS: Aspirin 325 MG Tablet PO SCH (08:56)
[2018-01-09] MEDS: ALPRAZolam 0.5 MG Tablet PO PRN (08:56)
[2018-01-09] MEDS: Senna/Docusate Sodium 8.6/50 MG Tablet PO SCH (08:56)
[2018-01-09 12:16] VITALS: BP 116/73; PULSE 53; RESP 17; TEMP 98.2; O2SAT 99
[2018-01-09] MEDS: Sod Chloride 0.9% Inj 1,000 ML IV.CONT SCH (12:18)
--- NOTE | 2018-01-09 15:08 | P.DS ---
Date of admission: 01/07/18 09:46 Primary care physician: Lily Carpio Attending physician on discharge: Reynaldo Ramirez Brief History from admission: The patient is a 57-year-old male with a past medical history significant for hypertension, chronic back pain, psoriasis and rheumatoid arthritis was presented to the hospital after a fall. He says he was on a ladder yesterday that was about 30 feet tall when all of a sudden it kicked out from under him. He said that he fell on his right shoulder and on his tailbone. He says he had significant pain at the time and felt something pop in his right arm. Since then he has had tingling shooting from his right shoulder all the way down to the fingers of his right hand. He says that the pain in his tailbone has gotten better. He says initially his pain was 8 out of 10 and now it is a 6 out of 10. He says that a few months ago he was admitted to an outside hospital where he was found to have a bloodstream infection. He also had 3 grand mal seizures back to back. He says he was told he has a small spot in his brain that causes memory issues, which he acknowledges. He says since then he has had multiple small seizures, the last being last week. He says he feels like he has a metal taste in his mouth prior to having seizures. He thinks he had the blood stream infection from poor dentition. Patient update on day of discharge: ` No new neurologic symptoms no new seizures patient is a patient understands instructions following discharge patient is ready to go home. DS: Diagnosis - Discharge Diagnosis (1) CVA (cerebral vascular accident) Status: Acute (2) Fall Status: Acute (3) Ischemic stroke Status: Acute (4) Seizure disorder Status: Chronic (5) Chronic pain Status: Chronic (6) Tendinopathy of right rotator cuff Status: Acute (7) Tendinopathy of right biceps tendon Status: Acute (8) HTN (hypertension) Status: Chronic (9) Tobacco abuse Status: Chronic (10) Anxiety Status: Chronic (11) Contusion Status: Acute DS: Medications - Discharge Medications Prescriptions: carisoprodol [Soma] 350 mg PO BID PRN 30 Days #20 bottle PRN Reason: Back spasm hydrocodone-acetaminophen 1 tab PO Q4H PRN 3 Days #16 tab PRN Reason: pain DS: Summary Hospital Course: See admission details. - Time Spent with Patient Total time spent providing and/or coordinating discharge services: Less than 30 minutes - Quality: VTE Deep Vein Thrombosis/Pulmonary Embolism Present on Admission: No Exam Vital signs: Vital Signs 01/08/18 16:00 01/08/18 20:00 01/08/18 20:12 Temperature 98.2 F 98.0 F Pulse Rate 50 L 50 L Respiratory Rate 16 23 19 Blood Pressure 116/66 109/59 L Pulse Oximetry 100 100 01/08/18 20:33 01/08/18 22:28 01/09/18 00:00 Temperature 98.2 F Pulse Rate 47 L Respiratory Rate 15 20 Blood Pressure 118/65 Pulse Oximetry 100 99 01/09/18 02:29 01/09/18 04:00 01/09/18 08:00 Temperature 98.0 F 97.9 F Pulse Rate 48 L 50 L Respiratory Rate 18 14 18 Blood Pressure 94/55 L 110/56 L Pulse Oximetry 95 100 01/09/18 08:56 01/09/18 12:00 Temperature 98.2 F Pulse Rate 53 L Respiratory Rate 15 17 Blood Pressure 116/73 Pulse Oximetry 99 Intake & Output 01/08/18 01/09/18 01/09/18 18:59 06:59 18:59 Intake Total 1959 Balance 1959 Weight 92.3 kg Intake: IV 1000 / 1000 NS Inj 1,000 ML @ 75 mls/hr IV. 1000 / 1000 CONT .[id number] JOSSELIN Rx#:[id number] Oral 960 / 960 Other: # Voids 4 5 Date of Last Bowel Movement 01/07/18 01/08/18 01/08/18 Narrative: Awake alert motor and sensory function grossly intact he is oriented x3 and appropriate Breathing comfortably, no complaints except a right shoulder Results Procedures completed during hospitalization: None Labs on day of discharge: Labs from last 24 hours 01/08/18 07:20 Hemoglobin A1c 5.1 - Impressions ITS Impressions Abdomen/Pelvis CT 01/06/18 13:04 CONCLUSION: 1. No acute CT abnormality in the abdomen or pelvis. 2. Minimal bibasilar airspace disease, likely atelectasis. 3. Sigmoid diverticulosis. 4. Nonspecific prostatic enlargement. Cervical Spine CT 01/06/18 13:04 CONCLUSION: 1. No acute fracture or subluxation. 2. Multilevel facet arthropathy. Chest CT 01/06/18 13:04 CONCLUSION: No acute abnormality is identified. Chest X-Ray 01/06/18 13:04 CONCLUSION: 1. Negative portable chest. Head CT 01/06/18 13:04 CONCLUSION: 1. Focal region of hypodensity in the right basal ganglia extending to the centrum semiovale and right frontoparietal mid to high convexities measuring approximately 3.7 x 1.7 cm with mild associated mass effect on the right lateral ventricle. No definitive evidence for hemorrhage in this region or volume loss. Favor subacute infarction. Consider contrast-enhanced MRI examination for better evaluation. . Lumbar Spine CT 01/06/18 13:04 CONCLUSION: 1. No acute fracture or subluxation. 2. Mild multilevel degenerative spondylosis of the lumbar spine, as above. Thoracic Spine CT 01/06/18 13:04 CONCLUSION: 1. No acute fracture or subluxation. 2. Mild degenerative spondylosis of the lower thoracic spine, as above. Humerus X-Ray 01/06/18 16:03 CONCLUSION: No acute right arm abnormality is identified. Head MRI 01/06/18 16:57 CONCLUSION: 1. Findings are characteristic of acute nonhemorrhagic infarct right MCA distribution involving temporal and parietal cortex parietal, and right striatum. 2. No evidence of acute blood products or extra-axial fluid collections. Shoulder MRI 01/07/18 00:00 CONCLUSION: 1. Marrow edema within the superior humerus near the rotator cuff insertion which may represent a bone contusion. 2. Rotator cuff tendinopathy as above without full-thickness tear. Degenerative changes in the shoulder joint and AC joint. Head CTA 01/07/18 20:06 CONCLUSION: 1. Negative CTA of the [employer] [place]. Neck CTA 01/07/18 20:06 CONCLUSION: 1. Normal CTA of the carotids. Discharge Plan - Discharge Disposition Patient Disposition: 01 Discharge Home - Discharge Condition Condition: Stable - Discharge Order Discharge Orders: Discharge Order (Routine); Ordered 01/09/18 Ordered By: Reynaldo Ramirez - Discharge Details Anticipated Discharge Date: 01/09/18 - Physicians Team Primary Care Provider: Lily Carpio Attending Provider: Elena Melendez Other Providers: Ty Hearn MD, PhD ; Edinson Ca MD ; Kavya Daugherty MD
== END 2018-01-09 15:30 | disposition home or self-care (01) ==
LOC: NEPC 12:21 → NEDA 12:21 → NEPHCDU 19:47 → N03 01-07 21:05
PROVIDERS: ADMIT Family Medicine; ATTEND Family Medicine

== ENCOUNTER 2018-03-28 08:53 | Inpatient (IN) ==
--- NOTE | 2018-03-28 09:29 | ED ---
HPI General Chief Complaint: Dizziness Stated Complaint: sharp pain in head/blurry vision/dizziness Time Seen by Provider: 03/28/18 09:05 Source: patient Mode of arrival: ambulatory Limitations: no limitations History of Present Illness HPI Narrative: 58 yo M c/o cephalgia starting approx 6 hours prior to ed arrival while asleep, approx 4am. pt took a lortab which did not help. pain along left frontal to occipital scalp. no fever/chills. no n/v/d. + dizziness. pt bumped into a wall. blurred vision reported without diplopia or loss of vision. no neck stiffness. no upper/lower extremity weakness. sensation of the room spinning reported. pt states prior ICH was associated with same complaint. pmh reported includes CVA, sz, chronic pain, HTN, anxiety, tobaccoism. Pt reports expressive aphasia at time of symptom onset which resolved after a few minutes. Related Data Home Medications Medication Instructions Recorded Confirmed lisinopril 10 mg PO BID 11/19/17 03/28/18 hydrocodone-acetaminophen [[place]] 1 tab PO Q6H PRN 01/25/18 03/28/18 levetiracetam [Keppra] 500 mg PO BID 03/28/18 03/28/18 Previous Rx's Medication Instructions Recorded carisoprodol [Soma] 350 mg PO BID #14 tab 01/25/18 Allergies Allergy/AdvReac Type Severity Reaction Status Date / Time No Known Allergies Allergy Verified 03/28/18 09:12 Review of Systems ROS: all other systems reviewed are negative [facility] Social History Social History Substance History: No History of Abuse Second Hand Smoke Exposure: Yes Smoking Status: Current every day smoker Tobacco Type: Cigarettes How Often Do You Have a Drink Containing Alcohol: Never Recent Travel in [facility] within the Last 8 Weeks: No Recent Out of Country Travel within the Last 8 Weeks: No Immunization History Tetanus Immunization: <5 Years Exam Narrative Exam Narrative: GENERAL: 58 yo M, WNWD, mild distress 2/2 pain and or anxiety SKIN: Focused skin assessment warm/dry. HEAD: Atraumatic. Normocephalic. EYES: Pupils equal and round. No scleral icterus. No injection or drainage. No nystagmus. ENT: No nasal bleeding or discharge. Mucous membranes pink and moist. NECK: Trachea midline. No JVD. CARDIOVASCULAR: Regular rate and rhythm. No murmur appreciated. RESPIRATORY: No accessory muscle use. Clear to auscultation. Breath sounds equal bilaterally. GASTROINTESTINAL: Abdomen soft, non-tender, nondistended. Hepatic and splenic margins not palpable. MUSCULOSKELETAL: No obvious deformities. No clubbing. No cyanosis. No edema. Cerebellar function tests normal. NEUROLOGICAL: Awake and alert. No obvious cranial nerve deficits. Motor grossly within normal limits. Normal speech. PSYCHIATRIC: Appropriate mood and affect; insight and judgment normal. Course Initial Documented Vital Signs Temperature 97.8 F 03/28/18 08:59 Pulse Rate 61 03/28/18 08:59 Respiratory Rate 18 03/28/18 08:59 Blood Pressure 118/71 03/28/18 08:59 Pulse Oximetry 100 03/28/18 08:59 Last Documented Vital Signs Temperature 97.8 F 03/28/18 08:59 Pulse Rate 60 03/28/18 09:14 Respiratory Rate 16 03/28/18 09:14 Blood Pressure 136/83 03/28/18 09:14 Pulse Oximetry 99 03/28/18 09:14 Medical Decision Making MDM Narrative Medical decision making narrative: Case d/w Dr Newman for [facility] - admission for TIA (poss transiebt symptoms w infarct) evaluation Case d/w Dr Cano for neurology Pt without acute focal neuro deficit here. TPA not indicated. Brain MR with contrast ordered per request radiology. Pt reports decreased dizziness and cephalgia at 1115AM. CBC normal CMP normal for patient Tn < 0.02 EKG sinus, rate 46, nomal axis/intervals CT head no acute pathology MR brain poss L parietal lesion, MR w contrast requested by radiology Medical Screen Exam Complete: Yes Emergency Medical Condition: Yes Lab Data Lab results reviewed: Yes I reviewed the patient's lab results. Result diagrams: 03/28/18 09:15 03/28/18 09:15 Lab Results 03/28/18 03/28/18 Range/Units 09:15 09:15 WBC 7.9 (4.0-11.0) th/mm3 RBC 5.24 (4.50-5.90) mil/mm3 Hgb 15.8 (13.0-17.0) gm/dL Hct 45.8 (39.0-51.0) % MCV 87.4 (80.0-100.0) fL MCH 30.2 (27.0-34.0) pg MCHC 34.5 (32.0-36.0) % RDW 14.3 (11.6-17.2) % Plt Count 282 (150-450) th/mm3 MPV 8.9 (7.0-11.0) fL Neut % (Auto) 62.1 (16.0-70.0) % Lymph % (Auto) 29.6 (9.0-44.0) % [place] % (Auto) 4.7 (0.0-8.0) % Eos % (Auto) 1.6 (0.0-4.0) % Baso % (Auto) 2.0 (0.0-2.0) % Neut # (Auto) 4.9 (1.8-7.7) th/mm3 Lymph # (Auto) 2.3 (1.0-4.8) th/mm3 [place] # (Auto) 0.4 (0.0-0.9) th/mm3 Eos # (Auto) 0.1 (0.0-0.4) th/mm3 Baso # (Auto) 0.2 (0.0-0.2) th/mm3 WBC Differential . Differential Comment Auto diff final Sodium 141 (136-145) meq/L Potassium 3.8 (3.5-5.1) meq/L Chloride 108 H (98-107) meq/L Carbon Dioxide 29.3 (21.0-32.0) meq/L Anion Gap 4 L (5-15) meq/L BUN 13 (7-18) mg/dL Creatinine 0.99 (0.60-1.30) mg/dL Estimated GFR 78 L (>89) mL/min Random Glucose 94 (74-106) mg/dL Calcium 8.3 L (8.5-10.1) mg/dL Troponin I Less than 0.02 L (0.02-0.05) ng/mL Imaging Data Radiologist's impression: Head CT 03/28/18 09:22 CONCLUSION: 1. No acute abnormality seen. . Head MRI 03/28/18 09:22 CONCLUSION: 1. Area of suspected artifactual restricted diffusion involving the superior left parietal lobe. Recommend follow-up imaging with contrast-enhanced MRI of the brain to better evaluate this area. 2. Stable appearance of an old lacunar infarct involving the right basal ganglia versus prominent perivascular space. Discharge Plan Discharge Disposition Patient Disposition: ED Admit(ED Internal Use Only) Discharge Order Discharge Orders: ED Use Only Admit Order (Routine); Ordered 03/28/18 Ordered By: Allen Stewart Physicians Team ED Provider: Allen Stewart Primary Care Provider: Lily Carpio Attending Provider: Chelo Newman Status ED Status: Admitted Observation Patient
[2018-03-28] MEDS ORDERED: Sod Chloride 0.9% Inj 1,000 ML IV.SIG SCH (09:30)
[2018-03-28 09:51] LABS: Baso # (Auto) 0.2 th/mm3 (0.0-0.2); Eos # (Auto) 0.1 th/mm3 (0.0-0.4); Eos % (Auto) 1.6 % (0.0-4.0); Hematocrit 45.8 % (39.0-51.0); Hemoglobin 15.8 gm/dL (13.0-17.0); Lymph # (Auto) 2.3 th/mm3 (1.0-4.8); Lymph % (Auto) 29.6 % (9.0-44.0); Mean Corpuscular HGB Conc 34.5 % (32.0-36.0); Mean Corpuscular Hemoglobin 30.2 pg (27.0-34.0); Mean Corpuscular Volume 87.4 fL (80.0-100.0); Mean Platelet Volume 8.9 fL (7.0-11.0); Mono # (Auto) 0.4 th/mm3 (0.0-0.9); Mono % (Auto) 4.7 % (0.0-8.0); Neut # (Auto) 4.9 th/mm3 (1.8-7.7); Neut % (Auto) 62.1 % (16.0-70.0); Platelet Count 282 th/mm3 (150-450); Red Blood Count 5.24 mil/mm3 (4.50-5.90); Red Cell Distribution Width 14.3 % (11.6-17.2); White Blood Count 7.9 th/mm3 (4.0-11.0)
--- NOTE | 2018-03-28 10:02 | CT ---
EXAM DATE: 03/28/2018 9:50 AM EST AGE/SEX: 58 years / Male INDICATIONS: Headache, dizziness, blurred vision today CLINICAL DATA: This is the patient's initial encounter. Patient reports that signs and symptoms have been present for 1 day and indicates a pain score of 0/10. MEDICAL/SURGICAL HISTORY: Hypertension. Rheumatoid arthritis. Seizures. . Sinus Surgery RADIATION DOSE: 56.35 CTDI (mGy) [place] [facility] [place] [facility] [place] [place]. . TECHNIQUE: CT of the head without contrast. Using automated exposure control and adjustment of the mA and/or kV according to patient size, radiation dose was kept as low as reasonably achievable to ob tain optimal diagnostic quality images. DICOM format image data is available electronically for revi ew and comparison. FINDINGS: Cerebrum: The ventricles are normal for age. No evidence of midline shift, mass lesion, hemorrhage or acute infarction. No extraaxial fluid collections are seen. Well-circumscribed lucency identified within the right basal ganglia consistent with old lacunar infarct versus prominent perivascular spa ce. Posterior Fossa: The cerebellum and brainstem are intact. The 4th ventricle is midline. The cerebe llopontine angle is unremarkable. Extracranial: The visualized portion of the orbits is intact. Skull: The calvaria is intact. No evidence of skull fracture. CONCLUSION: 1. No acute abnormality seen. . Electronically signed by: Karine Scales MD Board Certified Radiologist 03/28/2018 10:01 AM Johanna
[2018-03-28 10:11] LABS: Anion Gap 4 meq/L (5-15); Blood Urea Nitrogen 13 mg/dL (7-18); Calcium 8.3 mg/dL (8.5-10.1); Carbon Dioxide 29.3 meq/L (21.0-32.0); Chloride 108 meq/L (98-107); Glomerular Filtration Rate 78 mL/min (>89); Glucose,Random 94 mg/dL (74-106); Potassium 3.8 meq/L (3.5-5.1); Sodium 141 meq/L (136-145)
--- NOTE | 2018-03-28 10:13 | MR ---
EXAM DATE: 03/28/2018 10:04 AM EST AGE/SEX: 58 years / Male INDICATIONS: Dizziness. CLINICAL DATA: This is the patient's initial encounter. Patient reports that signs and symptoms have been present for 1 day and indicates a pain score of 0/10. MEDICAL/SURGICAL HISTORY: Hypertension. Rheumatoid arthritis. . Hand. Sinus. Knee. COMPARISON: [facility], CT HEAD W/O CONTRAST, 03/28/2018. [facility], CT HEAD W/O CONTRAST, 01/25/2018. . TECHNIQUE: Multiplanar, multisequence examination of the brain was performed without contrast. FINDINGS: Cerebrum: The ventricles are normal for age. No evidence of midline shift, mass lesion, hemorrhage or acute infarction. No extraaxial fluid collections are seen. . The pituitary gland and suprasellar cistern are normal in configuration. White Matter: There is a well-circumscribed area of increased T2 signal identified within the right basal ganglia extending towards the right lateral ventricle corresponding with the hypoattenuating le ron seen on comparison CT. Findings are compatible with an old lacunar infarct versus prominent mike vascular space Posterior Fossa: The cerebellum and brainstem are intact. The 4th ventricle is midline. The cerebel lopontine angle is unremarkable. The cerebellar tonsils are normal in position. Diffusion Imaging: There is a focal area of suggested restricted diffusion involving the superior le ft parietal lobe, however, no signal abnormality identified within this area on T2-weighted sequences . Given that this is at the margins of the exam this is likely artifactual. No evidence of acute infa rction. Extracranial: The visualized portions of the orbits and paranasal sinuses are unremarkable. CONCLUSION: 1. Area of suspected artifactual restricted diffusion involving the superior left parietal lobe. Rec ommend follow-up imaging with contrast-enhanced MRI of the brain to better evaluate this area. 2. Stable appearance of an old lacunar infarct involving the right basal ganglia versus prominent pe rivascular space. Electronically signed by: aKrine Scales MD Board Certified Radiologist 03/28/2018 10:11 AM E
--- NOTE | 2018-03-28 10:52 | P.HPIM ---
History of Present Illness Service: Hospitalist Primary Care Physician: Lily Carpio Chief Complaint: Headache, speech difficulty History of Present Illness: Mr. Spencer is a pleasant 58 year old male with a history of fall from ladder and right MCA ischemic stroke (12/2017), seizure disorder who presents to the emergency department due to top of the head headache, vertigo-like symptoms as well as expressive aphasia that started around 4 AM on 03/28/2018. He denies any chest pain, shortness of breath, cough , abdominal pain, fever or chills. He denies any changes in bowel or bladder habits. ED workup including CT head as well as MRI of the brain did not show any evidence of acute stroke. Neurology was consulted for further evaluation. Past medical history: Hypertension, previous stroke, seizure disorder Past surgical history: Knee surgeries, sinus surgeries and hand surgeries Social history: Smokes about 6 cigarettes a day. Denies using tobacco or illicit drugs. Family history: Mother from heart disease at age 41 and father from heart attack at age 73. Review of Systems Review of Systems: all other systems reviewed are negative [facility] Social History Social History Substance History: No History of Abuse Second Hand Smoke Exposure: Yes Smoking Status: Current every day smoker Tobacco Type: Cigarettes How Often Do You Have a Drink Containing Alcohol: Never Recent Travel in [facility] within the Last 8 Weeks: No Recent Out of Country Travel within the Last 8 Weeks: No Immunization History Tetanus Immunization: <5 Years Medications and Allergies Allergies Allergy/AdvReac Type Severity Reaction Status Date / Time No Known Allergies Allergy Verified 03/28/18 09:12 Home Medications Medication Instructions Recorded Confirmed Type lisinopril 10 mg PO BID 11/19/17 03/28/18 History hydrocodone-acetaminophen [Highwood] 1 tab PO Q6H PRN 01/25/18 03/28/18 History levetiracetam [Keppra] 500 mg PO BID 03/28/18 03/28/18 History Active Medications: Active Medications Sodium Chloride (Ns Flush) 2 ml IV.FLUSH PRN PRN PRN Reason: FLUSH AFTER USING IV ACCESS Physical Exam Vital signs: Last Vital Signs Temp 97.8 F 03/28/18 08:59 Pulse 60 03/28/18 09:14 Resp 16 03/28/18 09:14 BP 136/83 03/28/18 09:14 Pulse Ox 99 03/28/18 09:14 Intake & Output 03/26/18 03/27/18 03/28/18 03/29/18 06:59 06:59 06:59 06:59 Weight 88.451 kg GENERAL: This is a well-nourished, well-developed patient, in no apparent distress. SKIN: No rashes, ecchymoses or lesions. Warm and dry. HEAD: Atraumatic. Normocephalic. No temporal or scalp tenderness. EYES: Pupils equal round and reactive. No injection or drainage. ENT: Nose without bleeding, purulent drainage or septal hematoma. Airway patent. NECK: Trachea midline. No lymphadenopathy. Supple, nontender, no meningeal signs. CARDIOVASCULAR: Regular rate and rhythm without murmurs, gallops, or rubs. No JVD. RESPIRATORY: Clear to auscultation. Breath sounds equal bilaterally. No wheezes , rales, or rhonchi. GASTROINTESTINAL: Abdomen soft, non-tender, nondistended. No guarding. MUSCULOSKELETAL: Extremities without clubbing, cyanosis, or edema. NEUROLOGICAL: Awake and alert. Cranial nerves II through XII intact. No focal neurological deficits. Normal speech. Results Labs CBC & Chem 7: 03/28/18 09:15 03/28/18 09:[address] 03/28/18 09:22 CONCLUSION: 1. No acute abnormality seen. . Head MRI 03/28/18 09:22 CONCLUSION: 1. Area of suspected artifactual restricted diffusion involving the superior left parietal lobe. Recommend follow-up imaging with contrast-enhanced MRI of the brain to better evaluate this area. 2. Stable appearance of an old lacunar infarct involving the right basal ganglia versus prominent perivascular space. Caprini VTE Risk Assessment Caprini VTE Risk Assessment: No/Low Risk (score <= 1) Caprini Risk Assessment Model: Point Value = 1 Point Value = 2 Point Value = 3 Point Value = 5 Age 41-60 Minor surgery BMI > 25 kg/m2 Swollen legs Varicose veins or History of unexplained or recurrent spontaneous Oral contraceptives or hormone replacement Sepsis (< 1 month) Serious lung disease, including pneumonia (< 1 month) Abnormal pulmonary function Acute myocardial infarction Congestive heart failure (< 1 month) History of inflammatory bowel disease Medical patient at bed rest Age 61-74 Arthroscopic surgery Major open surgery (> 45 min) Laparoscopic surgery (> 45 min) Malignancy Confined to bed (> 72 hours) Immobilizing plaster cast Central venous access Age >= 75 History of VTE Family history of VTE Factor V Leiden Prothrombin [id number] Lupus anticoagulant Anticardiolipin antibodies Elevated serum homocysteine Heparin-induced thrombocytopenia Other congenital or acquired thrombophilia Stroke (< 1 month) Elective arthroplasty Hip, pelvis, or leg fracture Acute spinal cord injury (< 1 month) Prophylaxis Regimen: Total Risk Factor Score Risk Level Prophylaxis Regimen 0-1 Low Early ambulation 2 Moderate Order ONE of the following: *Sequential Compression Device (SCD) *Heparin 5000 units SQ BID 3-4 Higher Order ONE of the following medications: *Heparin 5000 units SQ TID *Enoxaparin/Lovenox 40 mg SQ daily (WT < 150 kg, CrCl > 30 mL/min) *Enoxaparin/Lovenox 30 mg SQ daily (WT < 150 kg, CrCl > 10-29 mL/min) *Enoxaparin/Lovenox 30 mg SQ BID (WT < 150 kg, CrCl > 30 mL/min) AND/OR *Sequential Compression Device (SCD) 5 or more Highest Order ONE of the following medications: *Heparin 5000 units SQ TID (Preferred with Epidurals) *Enoxaparin/Lovenox 40 mg SQ daily (WT < 150 kg, CrCl > 30 mL/min) *Enoxaparin/Lovenox 30 mg SQ daily (WT < 150 kg, CrCl > 10-29 mL/min) *Enoxaparin/Lovenox 30 mg SQ BID (WT < 150 kg, CrCl > 30 mL/min) AND *Sequential Compression Device (SCD) Assessment and Plan Plan Mr. Spencer is a pleasant 58-year-old male with a history of seizure disorder, previous right MCA ischemic stroke (12/2017), hypertension who presents to the emergency department on 03/28/2018 due to top of the head headache, expressive aphasia that started around 4 AM. Imaging studies did not reveal any evidence of stroke. Neurology was consulted. Cardiology was also consulted. Probable acute transient ischemic attack Appreciate neurology and cardiology input. Continue aspirin 325 mg daily as well as Plavix 75 mg p.o. daily Patient is a scheduled to undergo BHARATH study tomorrow morning. Patient refused to undergo loop recorder placement offered by cardiology. -Loop recorder would've been very beneficial due to suspicion for paroxysmal Afib. -IF he had Afib, his [id number] score would be 3 (previous stroke, HTN). He will, thus, benefit from Anti-coagulation. Hypertension Continue permissive hypertension today. Will start controlling hypertension tomorrow. Currently normotensive. Headache Seizure disorder Patient takes [place] 10/325 as well as Soma. We will continue his home medications. Tylenol for minor headache. -Condinue Keppra 500mg BID. Full code. Ambulation.
[2018-03-28] MEDS ORDERED: Acetaminophen 325 MG Tablet PO PRN (10:57)
[2018-03-28] MEDS ORDERED: Bisacodyl 10 MG Supp RECTAL PRN (10:57)
[2018-03-28] MEDS ORDERED: Gadobutrol PF 10 MMOL/10 ML Vial (for RAD) IV.SIG ONE (11:03)
--- NOTE | 2018-03-28 11:59 | MR ---
EXAM DATE: 03/28/2018 11:32 AM EST AGE/SEX: 58 years / Male INDICATIONS: Dizziness. Abnormal w/o mri brain. CLINICAL DATA: This is the patient's initial encounter. Patient reports that signs and symptoms have been present for 1 day and indicates a pain score of 0/10. MEDICAL/SURGICAL HISTORY: Rheumatoid arthritis. Hypertension. . Hand. Left knee. Sinus. COMPARISON: [facility] [place], MR HEAD W/O CONTRAST, 03/28/2018. [facility] [place], CT HEAD W/O CONTRAST, 03/28/2018. . TECHNIQUE: Multiplanar, multisequence examination of the brain was performed with 9 ml Gadavist (gado butrol) contrast as a single exam dose. FINDINGS: Cerebrum: The ventricles are normal for age. No evidence of midline shift, mass lesion, hemorrhage or acute infarction. Persistent area of increased T2 signal seen on the diffusion weighted sequence within the superior left parietal lobe. No corresponding abnormality identified on the coronal or sag ittal views. This is still felt to represent artifact. The area of previously noted increased T2 sign al involving the lateral brain matter of the right temporal lobe and parietal lobe does not correspon d to abnormal T1 signal and no abnormal enhancement. No extraaxial fluid collections are seen. The p ituitary gland and suprasellar cistern are normal in configuration. Posterior Fossa: The cerebellum and brainstem are intact. The 4th ventricle is midline. The cerebel lopontine angle is unremarkable. The cerebellar tonsils are normal in position. Diffusion Imaging: No focal areas of restricted diffusion are seen. No evidence of acute infarction . Extracranial: The visualized portions of the orbits and paranasal sinuses are unremarkable. Post Contrast: No abnormal areas of parenchymal or dural enhancement. No evidence of blood-brain ba rrier breakdown. CONCLUSION: 1. No abnormal enhancement. The focal area of increased T2 signal on the diffusion-weighted sequence involving the superior left parietal lobe is felt to be artifact. No abnormal enhancement identified within the right temporal lobe. Electronically signed by: Karine Scales MD Board Certified Radiologist 03/28/2018 11:58 AM E
[2018-03-28] MEDS: Sod Chloride 0.9% Inj 1,000 ML IV.CONT SCH ×2 (13:51→22:37)
[2018-03-28 14:32] LABS: Cholesterol 178 mg/dL (120-200); Triglycerides 143 mg/dL (42-150)
--- NOTE | 2018-03-28 14:55 | MB ---
cc: Rodolfo Cano MD DATE: 03/28/2018 HISTORY OF PRESENT ILLNESS: This is a 58-year-old right-handed man with hypertension, seizure for the last 10 years, generalized tonic-clonic about one a year or so, and then he had small seizures about 1 every other week with a metallic taste in his mouth and feels a little odd. He has been on Keppra 500 b.i.d. for about a year. He has a history of rheumatoid arthritis, used to be on methotrexate. He does not have insurance, so does not see anybody and is no longer on methotrexate. He takes narcotics, however, for the pain. Not currently working. Looking for disability because of his seizures, although I did tell him he could work many jobs with the seizures. In December, he had come in. He had fallen off a ladder and was seen by Dr. Hearn. He fell on his right shoulder and back with some right shoulder pain, tingling in the right shoulder down the fingertips. Head CAT scan shows a right basal ganglia hypodensity. He had a stroke at that time, acute stroke. CT of the lumbar, cervical, and thoracic spine were negative. Multiple right MCA infarcts were noted on the MRI. An echocardiogram was done without any shunting and basically was normal. Left atrial size was normal. EF was normal. Mitral valve, aortic valves were normal. He had no new neurological problems. He was continued on the aspirin. There was no evidence for arterial dissection on the CTA. He had an EEG that was normal and apparently subsequently discharged. Then, last evening, he woke up in the middle of the night at about 4 a.m. had a headache on the top of his head, had vertigo with the room spinning around. It lasted about 20 minutes, then he felt like he could not get his words out properly for about 35 minutes. MRI of the brain today does not show any definite infarct. There is a diffusion abnormality very high up on the surface of the brain, appears to be artifactual, and he has some slight encephalomalacia in the right temporal lobe. This was done with and without contrast. REVIEW OF SYSTEMS: He denies any diabetes, hypercholesterolemia, [place], CABG, stent, angioplasty, atrial fibrillation, Coumadin, renal or hepatic or pulmonary disease, thyroid disease, lupus, ulcer, cancer. PHYSICAL EXAMINATION: VITAL SIGNS: Sinus rhythm to sinus jefferson now, 55, 18, 123/63. NECK: There were no carotid bruits. HEART: Regular rhythm. I did not detect a murmur. NEUROLOGIC: Pupils are equal. Visual mirza are full. Extraocular movement intact without nystagmus. Face symmetric with normal sensation. Tongue was midline. There is no drift. Normal strength in upper and lower extremities bilaterally. DTRs are trace throughout. Toes downgoing bilaterally. There is no clonus. Speech is fluent. He is not aphasic. SOCIAL HISTORY: Not a smoker or drinker. No drugs. Lives with his girlfriend. FAMILY HISTORY: Negative for cancer, seizure, or stroke. MEDICATIONS AT HOME: He was on: 1. Lisinopril. 2. Keppra 500 b.i.d. 3. Treynor. 4. Soma. I have told him to increase the Keppra to 1000 b.i.d. and if he has any more spells of the metallic taste or small complex partial seizures to increase to 1500 b.i.d. LABORATORY DATA: CBC is normal. Basic metabolic profile is essentially normal. Troponins negative. LDL cholesterol last time 82. Thyroid study last time normal. Coags normal. His sedimentation rate was normal in 2017. His LFTs were normal in 2016. UA has been negative in the past. CTA of his neck done was normal. On the last admission in December, he had a CTA of his head done that was negative. He had MRI of the brain done, showed a stroke. Review of those films showed multiple infarcts in the right MCA territory, significant. Diffusion abnormality was there on the left side high up, that we see now on 03/28/2018. It was present at that time, so that appears to be artifactual, on the left high surface of the brain. I also noted on the labs his vertebrobasilar system on the last CTA was normal. I noted on his last MRI, though he was under the impression he had a bleed in his brain, he did not actually have any bleeding or hemorrhage. It was an infarct. A chest CT on his last admission in December that was normal as well as a cervical spine CT. IMPRESSION: History of seizures, some onset of vertigo here. My concern is that with the aphasic episode, it could have been a transient ischemic attack. I think he should get a BHARATH and a loop recorder. A hypercoagulable screen, some other blood work done. We will put him on Plavix at this time. We could stop his aspirin in 5 days and could consider anticoagulation, considering the extensive stroke he had last time. I will also check a drug screen on him. MD NURIS Skinner/rocio , 12:43 PM , 12:55 PM
[2018-03-28 15:05] LABS: Chol/HDL Ratio 4.67 Ratio; Free T4 (Free Thyroxine) 1.08 ng/dL (0.76-1.46); HDL Cholesterol 38.1 mg/dL (40.0-60.0); LDL Cholesterol,Calculated 111 mg/dL (0-99); Thyroid Stimulating Hormone 0.707 uIU/mL (0.358-3.740); Vitamin B12 415 pg/mL (193-986)
--- NOTE | 2018-03-28 15:30 | MB ---
cc: Usama Greer MD DATE: 03/28/2018 REASON FOR CONSULTATION: CVA. HISTORY OF PRESENT ILLNESS: The patient is a very pleasant 58-year-old gentleman with a history of CVA, who presents again with fairly vague symptoms including lightheadedness and headache, although according to the neurologist he was also dysarthric, and according to the neurologist, he had a large stroke back in December, so the risk of a stroke/TIA is fairly high for this particular presentation. The patient denies any cardiac history but does smoke. PAST MEDICAL HISTORY: CVA, seizure, chronic pain, hypertension, anxiety, tobaccoism. CURRENT MEDICATIONS: 1. Ecotrin. 2. Plavix. ALLERGIES: NO KNOWN DRUG ALLERGIES. PHYSICAL EXAMINATION: VITAL SIGNS: Afebrile, pulse 46, respiratory rate 16, BP 115/70, saturating 98%. GENERAL: Pleasant gentleman in no distress. NECK: No JVD. LUNGS: Clear to auscultation bilaterally. CARDIOVASCULAR: Regular rate and rhythm. No murmurs appreciated. ABDOMEN: Benign. EXTREMITIES: No edema. LABORATORY DATA: White count 7.9, hematocrit 45.8, platelets 282. Sodium 141, potassium 3.8, chloride 108, bicarbonate 29, BUN 13, creatinine 0.99, glucose is 94. Troponins negative. EKG shows sinus bradycardia with no acute ST or T-wave changes. IMPRESSION: Cerebrovascular accident. The patient, according to his neurologist, had a significant cerebrovascular disease previously and symptoms concerning for another cerebrovascular disease during this admission. I have been asked to perform a BHARATH and loop recorder insertion. I discussed both these procedures at length. Despite the patient's lack of insurance, I did tell him I would perform the loop recorder and monitor without any expectation of payment. Yet, the patient declines this procedure for now. He is willing to undergo the transesophageal echocardiogram, which I will perform in the morning. If he changes his mind about the loop recorder, he will talk to his nurse or the neurologist, and I will be happy to perform in the morning. Thank you, again, for the opportunity to participate in this patient's care. Usama Greer MD [facility]/rocio , 02:37 PM , 02:45 PM
[2018-03-28 16:24] LABS: Bilirubin,Urine Negative (Negative); Clarity,Urine Clear (Clear); Color,Urine Yellow (Yellw/Straw); Glucose,Urine (UA) Negative (Negative); Leukocyte Esterase,Urine Negative (Negative); Mucus,Urine Few /lpf (Occasional); Nitrite,Urine Negative (Negative); Specific Gravity,Urine 1.017 (1.002-1.035)
[2018-03-28 17:14] LABS: Amphetamine Screen,Urine Neg (Neg); Barbiturate Screen,Urine Neg (Neg); Cannabinoid Screen,Urine Neg (Neg); Cocaine Screen,Urine Neg (Neg)
[2018-03-28 17:15] LABS: Opiate Screen,Urine Pos (Neg)
[2018-03-28] MEDS ORDERED: Lisinopril 10 MG Tablet PO SCH (21:00)
[2018-03-28] MEDS: levETIRAcetam 500 MG Tablet PO SCH (22:18)
[2018-03-28] MEDS: Carisoprodol 350 MG Tablet PO SCH (22:28)
[2018-03-29 06:34] LABS: Creatine Kinase 38 U/L (39-308)
--- NOTE | 2018-03-29 08:41 | P.PNCA ---
Subjective Interval history: Pt did well during MACHELLE which showed pfo, no complaints. Medications and Allergies Active Medications: Active Medications Acetaminophen (Tylenol) 650 mg PO Q4H PRN PRN Reason: Headache, fever, pain 1-4 Hydrocodone Bitart/Acetaminophen ([place] 10/325) 1 tab PO Q6H PRN PRN Reason: Pain, Moderate Last Admin: 03/28/18 17:40 Dose: 1 tab Al Hydroxide/Mg Hydroxide (Milk Of Magnesia Liq) 30 ml PO Q12H PRN PRN Reason: Mild Constipation Aspirin (Ecotrin) 325 mg PO DAILY [facility] Bisacodyl (Dulcolax Supp) 10 mg RECTAL DAILY PRN PRN Reason: SEVERE CONSITIPATION Carisoprodol (Soma) 350 mg PO BID [facility] Last Admin: 03/28/18 22:28 Dose: 350 mg Clopidogrel Bisulfate (Plavix) 75 mg PO DAILY [facility] Last Admin: 03/28/18 13:51 Dose: 75 mg Sodium Chloride (Ns Inj) 1,000 mls @ 100 mls/hr IV.CONT .Q10H [facility] Stop: 03/29/18 10:59 Last Infusion: 03/29/18 07:38 Dose: 0 mls/hr Lactulose (Lactulose Liq) 30 ml PO DAILY PRN PRN Reason: SEVERE CONSITIPATION Levetiracetam (Keppra) 500 mg PO BID [facility] Last Admin: 03/28/18 22:18 Dose: 500 mg Ondansetron HCl (Zofran Inj) 4 mg IV.PUSH Q6H PRN PRN Reason: NAUSEA OR VOMITING Sennosides (Senokot) 17.2 mg PO Q12H PRN PRN Reason: Moderate Constipation Sodium Chloride (Ns Flush) 2 ml IV.FLUSH PRN PRN PRN Reason: FLUSH AFTER USING IV ACCESS Sodium Chloride (Ns Flush) 2 ml IV.FLUSH BID [facility] Last Admin: 03/28/18 22:20 Dose: 2 ml Sodium Chloride (Ns Flush) 2 ml IV.FLUSH PRN PRN PRN Reason: FLUSH AFTER USING IV ACCESS Allergies Allergy/AdvReac Type Severity Reaction Status Date / Time No Known Allergies Allergy Verified 03/28/18 09:12 Home Medications Medication Instructions Recorded Confirmed Type lisinopril 10 mg PO BID 11/19/17 03/28/18 History hydrocodone-acetaminophen [[place]] 1 tab PO Q6H PRN 01/25/18 03/28/18 History levetiracetam [Keppra] 500 mg PO BID 03/28/18 03/28/18 History Physical Exam Vital signs: Vital Signs 03/28/18 08:59 03/28/18 09:14 03/28/18 11:47 Temperature 97.8 F Pulse Rate 61 60 55 L Respiratory Rate 18 16 18 Blood Pressure 118/71 136/83 123/63 Pulse Oximetry 100 99 03/28/18 13:04 03/28/18 13:05 03/28/18 17:14 Temperature Pulse Rate 46 L 46 L 47 L Respiratory Rate 16 Blood Pressure 114/70 Pulse Oximetry 98 03/28/18 19:03 03/28/18 20:00 03/29/18 00:00 Temperature 97.7 F 97.1 F L Pulse Rate 43 L 62 Respiratory Rate 16 18 18 Blood Pressure 95/61 L 93/54 L Pulse Oximetry 93 L 97 03/29/18 04:00 03/29/18 07:14 Temperature 96.9 F L 98.3 F Pulse Rate 54 L 49 L Respiratory Rate 18 16 Blood Pressure 94/58 L 103/62 Pulse Oximetry 95 98 Intake & Output 03/28/18 03/29/18 03/29/18 18:59 06:59 18:59 Intake Total 1000 / 1000 1200 / 1200 Output Total 1000 / 1000 Balance 1000 / 1000 200 / 200 Weight 88.45 kg Intake: IV 1000 / 1000 1000 / 1000 NS Inj 1,000 ML @ 100 mls/hr IV 1000 / 1000 .CONT .Q10H JOSSELIN Rx#:[id number] NS Inj 1,000 ML @ 1000 mls/hr 1000 / 1000 IV.SIG BOLUS JOSSELIN Rx#:[id number] Oral 200 / 200 Output: Urine 1000 / 1000 Other: # Voids 1 Date of Last Bowel Movement 03/28/18 03/28/18 Weight On Admission 88.45 kg - Constitutional no acute distress - Routine HEENT Exam Head: Present: normocephalic Eye: Present: EOMI - Routine Neck Exam Present: supple. Absent: JVD - Routine Respiratory Exam Absent: accessory muscle use - Routine Cardiovascular Exam Present: RRR. Absent: murmur - Routine Abdominal Exam Present: soft Results 03/28/18 09:15 12/16/18 09:15 Cardiac Enzymes 03/28/18 03/29/18 Range/Units 09:15 04:33 Troponin I Less than 0.02 L Less than 0.02 L (0.02-0.05) ng/mL Lipids 03/28/18 Range/Units 13:30 Triglycerides 143 (42-150) mg/dL Cholesterol 178 (120-200) mg/dL HDL Cholesterol 38.1 L (40.0-60.0) mg/dL Cholesterol/HDL Ratio 4.67 Ratio CBC 03/28/18 Range/Units 09:15 WBC 7.9 (4.0-11.0) th/mm3 RBC 5.24 (4.50-5.90) mil/mm3 Hgb 15.8 (13.0-17.0) gm/dL Hct 45.8 (39.0-51.0) % Plt Count 282 (150-450) th/mm3 Neut # (Auto) 4.9 (1.8-7.7) th/mm3 Lymph # (Auto) 2.3 (1.0-4.8) th/mm3 [place] # (Auto) 0.4 (0.0-0.9) th/mm3 Eos # (Auto) 0.1 (0.0-0.4) th/mm3 Baso # (Auto) 0.2 (0.0-0.2) th/mm3 Comprehensive Metabolic Panel 03/28/18 Range/Units 09:15 Sodium 141 (136-145) meq/L Potassium 3.8 (3.5-5.1) meq/L Chloride 108 H (98-107) meq/L Carbon Dioxide 29.3 (21.0-32.0) meq/L BUN 13 (7-18) mg/dL Creatinine 0.99 (0.60-1.30) mg/dL Calcium 8.3 L (8.5-10.1) mg/dL Intake and Output 03/28/18 03/29/18 03/29/18 22:59 06:59 14:59 Intake Total 1000 / 1000 200 / 200 Output Total 1000 / 1000 Balance 1000 / 1000 -800 / -800 Intake: IV 1000 / 1000 NS Inj 1,000 ML @ 100 mls/hr IV 1000 / 1000 .CONT .Q10H [facility] Rx#:[id number] Oral 200 / 200 Output: Urine 1000 / 1000 Other: # Voids 1 Date of Last Bowel Movement 03/28/18 Weight 88.45 kg Weight On Admission 88.45 kg - Imaging and Cardiology Imaging: Impressions Head CT 03/28/18 09:22 CONCLUSION: 1. No acute abnormality seen. . Head MRI 03/28/18 09:22 CONCLUSION: 1. Area of suspected artifactual restricted diffusion involving the superior left parietal lobe. Recommend follow-up imaging with contrast-enhanced MRI of the brain to better evaluate this area. 2. Stable appearance of an old lacunar infarct involving the right basal ganglia versus prominent perivascular space. Head MRI 03/28/18 10:37 CONCLUSION: 1. No abnormal enhancement. The focal area of increased T2 signal on the diffusion-weighted sequence involving the superior left parietal lobe is felt to be artifact. No abnormal enhancement identified within the right temporal lobe. Assessment and Plan - Assessment (1) PFO (patent foramen ovale) Code(s): Q21.1 - Atrial septal defect Status: Acute Plan: seen by loop, given multiple cva, feel anticoagulation reasonable (2) CVA (cerebral vascular accident) Code(s): I63.9 - Cerebral infarction, unspecified Status: Acute Plan: pfo seen by machelle; pt declines loop, probably will require anticoagulation. - Attending Attestation will sign off at this time, please call with questions
--- NOTE | 2018-03-29 09:33 | ECHRPT ---
Indication: CONCLUSIONS PFO with right to left shunt present. Normal LVEF See details below BP: / HR: Rhythm: Technical Quality:Excellent Medications Complications Proc. Components FINDINGS LEFT VENTRICLE The left ventricular systolic function is normal with an estimated ejection fraction in the range of 60-65%. RIGHT VENTRICLE The right ventricular size is normal. Normal right ventricular size and systolic function. LEFT ATRIUM The left atrial size is normal. RIGHT ATRIUM The right atrial size is normal. ATRIAL APPENDAGES Normal left atrial appendage size with no evidence of thrombus formation. ATRIAL SEPTUM Right to left atrial level shunt is observed with agitated saline contrast administration. AORTA The aortic root and proximal ascending aorta are normal in size on limited imaging. MITRAL VALVE Trace mitral valve regurgitation. AORTIC VALVE Trileaflet aortic valve. No aortic valve stenosis or regurgitation. TRICUSPID VALVE There is trace tricuspid valve regurgitation. Usama Greer MD (Electronically Signed) Final Date:29 March 2018 09:32
[2018-03-29] MEDS: Sod Chloride 0.9% Inj 1,000 ML IV.CONT SCH (09:49)
[2018-03-29] MEDS: Carisoprodol 350 MG Tablet PO SCH ×2 (09:51→21:29)
[2018-03-29] MEDS: levETIRAcetam 500 MG Tablet PO SCH ×2 (09:52→21:29)
[2018-03-29] MEDS: Heparin - SQ 10,000 UNITS/ML Vial SQ SCH ×2 (09:54→21:47)
[2018-03-29] MEDS ORDERED: Warfarin Consult Pharmacy OTHER PRN (10:22)
[2018-03-29 12:09] LABS: INR 1.1 Ratio; Prothrombin Time 10.7 sec (9.8-11.6)
--- NOTE | 2018-03-29 12:23 | ECG ---
Date Performed: 03/28/2018 Time Performed: 10:29:28 PTAGE: 58 years EKG: SINUS BRADYCARDIA SEPTAL MYOCARDIAL INFARCTION ABNORMAL ECG Since the PREVIOUS TRACING , no significant change noted PREVIOUS TRACIN01/07/2018 23.07 DOCTOR: Usama Greer Interpretating Date/Time 03/29/2018 12:20:34
--- NOTE | 2018-03-29 12:47 | P.PNIM ---
Subjective Interval history: Patient seen and evaluated this morning at the bedside shortly after returning from transesophageal echocardiogram it was discovered the patient has a patent foramen ovale. Case briefly discussed with neurology over telephone with recommendations to begin subcu heparin and transition patient to Coumadin with goal INR 22.5. Will discontinue Plavix at this time and continue aspirin for anticipated 5 date duration. Cardiology recommendations appreciated via EMR currently signed off case. Actively at this time patient does endorse a frontal headache for which pain medication will be given. Patient at this time denies new changes in vision, palpitations, or shortness of breath. Explained to patient in detail that he will require anticoagulation for prolonged therapy. Physical Exam Vital signs: Last Vital Signs Temp 97.9 F 03/29/18 11:32 Pulse 55 L 03/29/18 11:32 Resp 16 03/29/18 11:32 BP 105/60 03/29/18 11:32 Pulse Ox 100 03/29/18 11:32 Intake & Output 03/27/18 03/28/18 03/29/18 03/30/18 06:59 06:59 06:59 06:59 Intake Total 2200 / 2200 1000 / 1000 Output Total 1000 / 1000 Balance 1200 / 1200 1000 / 1000 Weight 88.45 kg General: No acute distress, conversational HEENT: EOMI, PERRLA Cardiovascular: S1/S2. Appears regular rhythm Respiratory: Clear to auscultation anteriorly and posteriorly without wheezing, rales, or rhonchi Gastrointestinal: Soft, nontender, nondistended, no guarding or rebound appreciated. Positive bowel sounds Extremity: No lower extremity edema or calf tenderness Neurology: Sensation intact upper and lower extremity bilaterally. No facial droop. No slurred speech. Results Labs CBC & Chem 7: 03/28/18 09:15 03/28/18 09:15 Assessment and Plan (1) PFO (patent foramen ovale): Code(s): Q21.1 - Atrial septal defect Status: Acute (2) CVA (cerebral vascular accident): Code(s): I63.9 - Cerebral infarction, unspecified Status: Acute Plan Patient is a pleasant 58-year-old male with past medical history of hypertension and CVA (currently on Keppra prophylaxis) presenting to emergency department for acute onset headache, weakness concerning for acute neurological event found on transesophageal echocardiogram to have patent foramen ovale. Neurology: Acute neurological event concerning for transient ischemic attack Heparin subcu Initiate Coumadin Transesophageal echocardiogram reviewed Neurology consulted and recommendations appreciated via EMR. Cardiology recommendations also appreciated via EMR. At this time patient declined loop recorder Hypercoagulable workup currently in progress Telemetry monitoring. Patient written for Holter monitor CODE STATUS: Full code DVT prophylaxis: Coumadin Disposition: Medical surgery unit. Awaiting patient to become therapeutic on Coumadin to begin dosing on 03/29 at 4 PM Progress Note: Quality VTE Deep Vein Thrombosis/Pulmonary Embolism Present on Admission: No _ (1) CVA (cerebral vascular accident) Qualifiers: CVA mechanism: Laterality of affected vessel: Precerebral and cerebral artery:
[2018-03-29 15:00] LABS: Anti-Nuclear Antibody Screen Neg (Neg)
--- NOTE | 2018-03-30 07:13 | P.PNNEU ---
Subjective Subjective Comments: awake alert vff face sym Active Medications: Active Medications Acetaminophen (Tylenol) 650 mg PO Q4H PRN PRN Reason: Headache, fever, pain 1-4 Hydrocodone Bitart/Acetaminophen ([place] 10/325) 1 tab PO Q6H PRN PRN Reason: Pain, Moderate Last Admin: 03/30/18 06:21 Dose: 1 tab Al Hydroxide/Mg Hydroxide (Milk Of Magnesia Liq) 30 ml PO Q12H PRN PRN Reason: Mild Constipation Aspirin (Ecotrin) 325 mg PO DAILY [facility] Last Admin: 03/29/18 09:53 Dose: 325 mg Bisacodyl (Dulcolax Supp) 10 mg RECTAL DAILY PRN PRN Reason: SEVERE CONSITIPATION Carisoprodol (Soma) 350 mg PO BID [facility] Last Admin: 03/29/18 21:29 Dose: 350 mg Heparin Sodium (Porcine) (Heparin Inj) 5,000 units SQ Q12HR [facility] Last Admin: 03/29/18 21:47 Dose: 5,000 units Lactulose (Lactulose Liq) 30 ml PO DAILY PRN PRN Reason: SEVERE CONSITIPATION Levetiracetam (Keppra) 500 mg PO BID [facility] Last Admin: 03/29/18 21:29 Dose: 500 mg Ondansetron HCl (Zofran Inj) 4 mg IV.PUSH Q6H PRN PRN Reason: NAUSEA OR VOMITING Pharmacy Profile Note (Coumadin Consult Pharmacy) 1 each OTHER UNSCH PRN PRN Reason: PHARMACY DOCUMENTATION Sennosides (Senokot) 17.2 mg PO Q12H PRN PRN Reason: Moderate Constipation Sodium Chloride (Ns Flush) 2 ml IV.FLUSH BID [facility] Last Admin: 03/29/18 21:30 Dose: 2 ml Sodium Chloride (Ns Flush) 2 ml IV.FLUSH PRN PRN PRN Reason: FLUSH AFTER USING IV ACCESS Warfarin Sodium (Coumadin) 7.5 mg PO DAILY@1600 [facility] Last Admin: 03/29/18 16:29 Dose: 7.5 mg Allergies/Adverse Reactions: Allergies Allergy/AdvReac Type Severity Reaction Status Date / Time No Known Allergies Allergy Verified 03/28/18 09:12 Physical Exam Vital signs: Vital Signs 03/29/18 07:14 03/29/18 11:09 03/29/18 11:32 Temperature 98.3 F 97.9 F Pulse Rate 49 L 58 L 55 L Respiratory Rate 16 16 Blood Pressure 103/62 105/60 Pulse Oximetry 98 100 03/29/18 15:19 03/29/18 16:00 03/29/18 19:53 Temperature 97.8 F 97.8 F Pulse Rate 64 64 52 L Respiratory Rate 16 16 Blood Pressure 110/59 L 104/50 L Pulse Oximetry 99 97 03/29/18 20:00 03/29/18 23:52 03/30/18 04:00 Temperature 97.5 F L 97.6 F Pulse Rate 49 L 50 L 50 L Respiratory Rate 14 16 Blood Pressure 105/56 L 100/58 L Pulse Oximetry 94 L 98 Intake & Output 03/29/18 03/30/18 03/30/18 18:59 06:59 18:59 Intake Total 1300 / 1300 Balance 1300 / 1300 Intake: IV 1300 / 1300 NS Inj 1,000 ML @ 100 mls/hr IV 1300 / 1300 .CONT .Q10H JOSSELIN Rx#:[id number] Other: # Voids 3 3 Date of Last Bowel Movement 03/29/18 03/29/18 # Bowel Movements 1 Narrative: asa ana paula exam nl Objective Laboratory Results - last 24 hr 03/28/18 03/28/18 03/29/18 13:30 13:30 11:18 PT 10.7 INR 1.1 Albumin (PEP) 4.39 Albumin/Globulin Ratio 1.75 Ibaws-[id number] 0.21 Cxlrc-9-Gqufgufgs 0.70 Beta Globulins 0.83 Gamma Globulins 0.77 ALONDRA Screen Neg RPR Nonreactive Review/Management - Review/Management Plan: imp dropped qrs last noc and some jefferson on coumadin he agrees to loop he can get out and work with hx of sz i told him he does not need to be on disability and then can afford loop cards working on plan
[2018-03-30 09:16] LABS: INR 1.1 Ratio; Prothrombin Time 10.9 sec (9.8-11.6)
[2018-03-30 09:17] LABS: Hemoglobin 14.2 gm/dL (13.0-17.0); Mean Corpuscular HGB Conc 34.7 % (32.0-36.0); Mean Corpuscular Hemoglobin 29.8 pg (27.0-34.0); Mean Corpuscular Volume 86.1 fL (80.0-100.0); Mean Platelet Volume 9.2 fL (7.0-11.0); Platelet Count 225 th/mm3 (150-450); Red Blood Count 4.75 mil/mm3 (4.50-5.90); Red Cell Distribution Width 13.9 % (11.6-17.2); White Blood Count 7.6 th/mm3 (4.0-11.0)
[2018-03-30 09:42] LABS: Calcium 8.6 mg/dL (8.5-10.1); Carbon Dioxide 25.1 meq/L (21.0-32.0); Magnesium 2.2 mg/dL (1.5-2.5); Potassium 4.1 meq/L (3.5-5.1)
[2018-03-30] MEDS: levETIRAcetam 500 MG Tablet PO SCH ×2 (09:51→20:47)
[2018-03-30] MEDS: Carisoprodol 350 MG Tablet PO SCH ×2 (09:51→20:47)
[2018-03-30] MEDS: Heparin - SQ 10,000 UNITS/ML Vial SQ SCH ×2 (09:52→20:42)
[2018-03-30 09:53] LABS: Thyroid Stimulating Hormone 0.753 uIU/mL (0.358-3.740)
--- NOTE | 2018-03-30 16:37 | ECG ---
Date Performed: 03/30/2018 Time Performed: 05:50:38 PTAGE: 58 years EKG: SINUS BRADYCARDIA BORDERLINE ECG INTERPRETATION BASED ON A DEFAULT AGE OF 40 YEARS PREVIOUS TRACING : 03/28/2018 10.29 Since the previous tracing, no significant change not ed DOCTOR: Ameya Logan Interpretating Date/Time 03/30/2018 16:36:46
--- NOTE | 2018-03-30 16:59 | P.PNIM ---
Subjective Interval history: 58-year-old gentleman admitted with TIA, workup included BHARATH with finding of PFO. Patient seen and examined, complaining of some mild leg pain, denies shortness of breath chest pain dizziness, Physical Exam Vital signs: Last Vital Signs Temp 98.3 F 03/30/18 16:00 Pulse 50 L 03/30/18 16:00 Resp 16 03/30/18 16:00 BP 110/61 03/30/18 16:00 Pulse Ox 97 03/30/18 16:00 Intake & Output 03/28/18 03/29/18 03/30/18 03/31/18 06:59 06:59 06:59 06:59 Intake Total 2200 / 2200 1300 / 1300 Output Total 1000 / 1000 Balance 1200 / 1200 1300 / 1300 Weight 88.45 kg Narrative: Well-developed well-nourished 58-year-old white male Awake alert oriented no acute distress Heart S1-S2 regular Lungs clear bilateral no wheeze no rhonchi Abdomen soft nondistended positive bowel sounds Extremities no clubbing cyanosis no edema Results Labs CBC & Chem 7: 03/30/18 08:54 03/30/18 08:54 Assessment and Plan (1) PFO (patent foramen ovale): Code(s): Q21.1 - Atrial septal defect Status: Acute (2) CVA (cerebral vascular accident): Code(s): I63.9 - Cerebral infarction, unspecified Status: Acute Plan TIA - workup in progress, neuor and cardio consults appreciated Hx CVA w new TIA while on asa, w finding of PFO, for repair and wrapper leaf inspector antiplatlet tx recommended. Loop recorder planned for am and repair of PFO later this week, discussed w cardiology, dc coumadin for now. PFO - will get venous dopplers, eval for dvt, if pos will require senior living ac , hypercoag panel in progress. SEIZURE disorder on Keppra , stable HTN controlled dvt prophylaxis sq heparin dispo - home after loop recorder and pfo repair completed on either wrapper leaf inspector ac vs antiplt tx. Progress Note: Quality VTE Deep Vein Thrombosis/Pulmonary Embolism Present on Admission: No _ (1) CVA (cerebral vascular accident) Qualifiers: CVA mechanism: Laterality of affected vessel: Precerebral and cerebral artery:
--- NOTE | 2018-03-31 00:58 | P.PNCA ---
Subjective Interval history: Follow up for Dr. Greer Doing well, no complaints Telemetry with a short pause, asymptomatic No evidence of AFib Medications and Allergies Active Medications: Active Medications Acetaminophen (Tylenol) 650 mg PO Q4H PRN PRN Reason: Headache, fever, pain 1-4 Hydrocodone Bitart/Acetaminophen ([place] 10/325) 1 tab PO Q6H PRN PRN Reason: Pain, Moderate Last Admin: 03/30/18 19:00 Dose: 1 tab Al Hydroxide/Mg Hydroxide (Milk Of Magnesia Liq) 30 ml PO Q12H PRN PRN Reason: Mild Constipation Aspirin (Ecotrin) 325 mg PO DAILY [facility] Last Admin: 03/30/18 09:52 Dose: 325 mg Bisacodyl (Dulcolax Supp) 10 mg RECTAL DAILY PRN PRN Reason: SEVERE CONSITIPATION Carisoprodol (Soma) 350 mg PO BID [facility] Last Admin: 03/30/18 20:47 Dose: 350 mg Heparin Sodium (Porcine) (Heparin Inj) 5,000 units SQ Q12HR [facility] Last Admin: 03/30/18 20:42 Dose: 5,000 units Lactulose (Lactulose Liq) 30 ml PO DAILY PRN PRN Reason: SEVERE CONSITIPATION Levetiracetam (Keppra) 500 mg PO BID [facility] Last Admin: 03/30/18 20:47 Dose: 500 mg Ondansetron HCl (Zofran Inj) 4 mg IV.PUSH Q6H PRN PRN Reason: NAUSEA OR VOMITING Sennosides (Senokot) 17.2 mg PO Q12H PRN PRN Reason: Moderate Constipation Sodium Chloride (Ns Flush) 2 ml IV.FLUSH BID [facility] Last Admin: 03/30/18 20:49 Dose: 2 ml Sodium Chloride (Ns Flush) 2 ml IV.FLUSH PRN PRN PRN Reason: FLUSH AFTER USING IV ACCESS Allergies Allergy/AdvReac Type Severity Reaction Status Date / Time No Known Allergies Allergy Verified 03/28/18 09:12 Home Medications Medication Instructions Recorded Confirmed Type lisinopril 10 mg PO BID 11/19/17 03/28/18 History hydrocodone-acetaminophen [[place]] 1 tab PO Q6H PRN 01/25/18 03/28/18 History levetiracetam [Keppra] 500 mg PO BID 03/28/18 03/28/18 History Physical Exam Vital signs: Vital Signs 03/30/18 04:00 03/30/18 07:58 03/30/18 08:00 Temperature 97.6 F 97.9 F Pulse Rate 50 L 49 L 47 L Respiratory Rate 16 16 Blood Pressure 100/58 L 112/63 Pulse Oximetry 98 98 03/30/18 11:59 03/30/18 16:00 03/30/18 19:36 Temperature 98.3 F 98.3 F 97.9 F Pulse Rate 58 L 50 L 53 L Respiratory Rate 20 16 16 Blood Pressure 108/59 L 110/61 107/62 Pulse Oximetry 100 97 95 03/30/18 22:02 Temperature 97.5 F L Pulse Rate 51 L Respiratory Rate 18 Blood Pressure 111/63 Pulse Oximetry 98 Intake & Output 03/30/18 03/30/18 03/31/18 06:59 18:59 06:59 Intake Total 440 / 440 Balance 440 / 440 Weight 89.6 kg Intake: Oral 440 / 440 Other: # Voids 3 2 Date of Last Bowel Movement 03/29/18 03/29/18 03/29/18 Narrative: Well-developed well-nourished 58-year-old white male Awake alert oriented no acute distress Heart S1-S2 regular Lungs clear bilateral no wheeze no rhonchi Abdomen soft nondistended positive bowel sounds Extremities no clubbing cyanosis no edema Results 03/30/18 08:54 03/30/18 08:54 Cardiac Enzymes 03/29/18 Range/Units 04:33 Troponin I Less than 0.02 L (0.02-0.05) ng/mL Coagulation 03/29/18 03/30/18 Range/Units 11:18 08:54 PT 10.7 10.9 (9.8-11.6) sec CBC 03/30/18 Range/Units 08:54 WBC 7.6 (4.0-11.0) th/mm3 RBC 4.75 (4.50-5.90) mil/mm3 Hgb 14.2 (13.0-17.0) gm/dL Hct 41.0 (39.0-51.0) % Plt Count 225 (150-450) th/mm3 Comprehensive Metabolic Panel 03/30/18 Range/Units 08:54 Sodium 142 (136-145) meq/L Potassium 4.1 (3.5-5.1) meq/L Chloride 110 H (98-107) meq/L Carbon Dioxide 25.1 (21.0-32.0) meq/L BUN 13 (7-18) mg/dL Creatinine 1.06 (0.60-1.30) mg/dL Calcium 8.6 (8.5-10.1) mg/dL Intake and Output 03/30/18 03/30/18 03/31/18 14:59 22:59 06:59 Intake Total 440 / 440 Balance 440 / 440 Intake: Oral 440 / 440 Other: # Voids 2 Date of Last Bowel Movement 03/29/18 03/29/18 Weight 89.6 kg Patient Weight 03/31/18 06:59 Weight 89.6 kg Assessment and Plan - Assessment (1) PFO (patent foramen ovale) Code(s): Q21.1 - Atrial septal defect Status: Acute (2) CVA (cerebral vascular accident) Code(s): I63.9 - Cerebral infarction, unspecified Status: Acute - Plan 1) TIA with a history of CVA Patient now agreeable to loop recorder placement Plan for tomorrow 2) PFO Most likely should be closed due to multiple neurologic events without AFib documented Will plan to close on Will need to be on Plavix 6 months after closure 3) Unsure about placing on anticoagulation No documented AFib If loop recorder placed, then would wait to see if any AFib before starting anticoagulation unless neurology feels strongly about it Plan for Plavix with PFO closure
[2018-03-31 07:14] LABS: INR 1.1 Ratio; Prothrombin Time 11.4 sec (9.8-11.6)
--- NOTE | 2018-03-31 07:55 | P.PNNEU ---
Subjective Active Medications: Active Medications Acetaminophen (Tylenol) 650 mg PO Q4H PRN PRN Reason: Headache, fever, pain 1-4 Hydrocodone Bitart/Acetaminophen ([place] 10/325) 1 tab PO Q6H PRN PRN Reason: Pain, Moderate Last Admin: 03/31/18 07:21 Dose: 1 tab Al Hydroxide/Mg Hydroxide (Milk Of Magnesia Liq) 30 ml PO Q12H PRN PRN Reason: Mild Constipation Aspirin (Ecotrin) 325 mg PO DAILY [facility] Last Admin: 03/30/18 09:52 Dose: 325 mg Bisacodyl (Dulcolax Supp) 10 mg RECTAL DAILY PRN PRN Reason: SEVERE CONSITIPATION Carisoprodol (Soma) 350 mg PO BID [facility] Last Admin: 03/30/18 20:47 Dose: 350 mg Heparin Sodium (Porcine) (Heparin Inj) 5,000 units SQ Q12HR [facility] Last Admin: 03/30/18 20:42 Dose: 5,000 units Lactulose (Lactulose Liq) 30 ml PO DAILY PRN PRN Reason: SEVERE CONSITIPATION Levetiracetam (Keppra) 500 mg PO BID [facility] Last Admin: 03/30/18 20:47 Dose: 500 mg Ondansetron HCl (Zofran Inj) 4 mg IV.PUSH Q6H PRN PRN Reason: NAUSEA OR VOMITING Sennosides (Senokot) 17.2 mg PO Q12H PRN PRN Reason: Moderate Constipation Sodium Chloride (Ns Flush) 2 ml IV.FLUSH BID [facility] Last Admin: 03/30/18 20:49 Dose: 2 ml Sodium Chloride (Ns Flush) 2 ml IV.FLUSH PRN PRN PRN Reason: FLUSH AFTER USING IV ACCESS Allergies/Adverse Reactions: Allergies Allergy/AdvReac Type Severity Reaction Status Date / Time No Known Allergies Allergy Verified 03/28/18 09:12 Physical Exam Vital signs: Vital Signs 03/30/18 07:58 03/30/18 08:00 03/30/18 11:59 Temperature 97.9 F 98.3 F Pulse Rate 49 L 47 L 58 L Respiratory Rate 16 20 Blood Pressure 112/63 108/59 L Pulse Oximetry 98 100 03/30/18 16:00 03/30/18 19:36 03/30/18 22:02 Temperature 98.3 F 97.9 F 97.5 F L Pulse Rate 50 L 53 L 51 L Respiratory Rate 16 16 18 Blood Pressure 110/61 107/62 111/63 Pulse Oximetry 97 95 98 03/31/18 00:00 03/31/18 04:00 Temperature 97.6 F 97.7 F Pulse Rate 44 L 55 L Respiratory Rate 17 18 Blood Pressure 114/59 L 101/63 Pulse Oximetry 97 98 Intake & Output 03/30/18 03/31/18 03/31/18 18:59 06:59 18:59 Intake Total 440 / 440 210 / 210 Balance 440 / 440 210 / 210 Weight 89.6 kg Intake: Oral 440 / 440 210 / 210 Other: # Voids 2 1 Date of Last Bowel Movement 03/29/18 03/29/18 Narrative: awake alert 5/5 speech nl left thigh nontender calf nontender not swollen Objective Laboratory Results - last 24 hr 03/28/18 03/30/18 03/30/18 13:30 08:54 08:54 WBC RBC Hgb Hct MCV MCH MCHC RDW Plt Count MPV PT 10.9 INR 1.1 Sodium 142 Potassium 4.1 Chloride 110 H Carbon Dioxide 25.1 Anion Gap 7 BUN 13 Creatinine 1.06 Estimated GFR 72 L Random Glucose 87 Calcium 8.6 Magnesium 2.2 PEP Pathologist Comment TSH 0.753 03/30/18 03/31/18 08:54 06:29 WBC 7.6 RBC 4.75 Hgb 14.2 Hct 41.0 MCV 86.1 MCH 29.8 MCHC 34.7 RDW 13.9 Plt Count 225 MPV 9.2 PT 11.4 INR 1.1 Sodium Potassium Chloride Carbon Dioxide Anion Gap BUN Creatinine Estimated GFR Random Glucose Calcium Magnesium PEP Pathologist Comment TSH Review/Management - Review/Management Plan: imp dropped qrs last noc and some jefferson on coumadin he agrees to loop he can get out and work with hx of sz i told him he does not need to be on disability and then can afford loop cards working on plan 03/31/18 doing well hyper pend thx so much for great cardiology team for loop and pfo closure i am ok with plavix not coumadin after dc
[2018-03-31] MEDS: Carisoprodol 350 MG Tablet PO SCH ×2 (08:50→20:57)
[2018-03-31] MEDS: levETIRAcetam 500 MG Tablet PO SCH ×2 (08:50→20:57)
[2018-03-31] MEDS: Heparin - SQ 10,000 UNITS/ML Vial SQ SCH ×2 (08:55→20:59)
[2018-03-31] MEDS ORDERED: fentaNYL Citrate Inj 100 MCG/2 ML Ampul ONE (09:58)
[2018-03-31] MEDS ORDERED: ceFAZolin 2 GM Premix Inj 2 GM/50 ML PIGGYBACK IV.SIG SCH (10:00)
--- NOTE | 2018-03-31 12:06 | P.PNIM ---
Subjective Interval history: in no acute distress. has mild pain to the right lower extremity which has improved. otherwise no other complaints. Physical Exam Vital signs: Last Vital Signs Temp 97.8 F 03/31/18 08:00 Pulse 50 L 03/31/18 08:00 Resp 17 03/31/18 08:00 BP 109/68 03/31/18 08:00 Pulse Ox 97 03/31/18 08:00 Intake & Output 03/29/18 03/30/18 03/31/18 04/01/18 06:59 06:59 06:59 06:59 Intake Total 2200 / 2200 1300 / 1300 650 / 650 Output Total 1000 / 1000 Balance 1200 / 1200 1300 / 1300 650 / 650 Weight 88.45 kg 89.6 kg Constitutional no acute distress Routine Respiratory Exam Present CTA bilaterally Routine Cardiovascular Exam Present RRR Routine Abdominal Exam Present soft Routine Extremities Exam Comments: no pedal edema. Routine Neurological Exam Present alert and oriented X3 Results Labs CBC & Chem 7: 03/30/18 08:54 03/30/18 08:54 Assessment and Plan (1) PFO (patent foramen ovale): Code(s): Q21.1 - Atrial septal defect Status: Acute (2) CVA (cerebral vascular accident): Code(s): I63.9 - Cerebral infarction, unspecified Status: Acute Plan A/P TIA - workup in progress, neuor and cardio consults appreciated Hx CVA w new TIA while on asa, w finding of PFO, for repair and termination clerk antiplatlet tx recommended. s/p loop recorder placement - for PFO closuer within the next 48 hrs. SEIZURE disorder on Keppra , stable HTN controlled dvt prophylaxis sq heparin dispo - home after loop recorder and pfo repair completed on either termination clerk ac vs antiplt tx. Progress Note: Quality VTE Deep Vein Thrombosis/Pulmonary Embolism Present on Admission: No _ (1) CVA (cerebral vascular accident) Qualifiers: CVA mechanism: Laterality of affected vessel: Precerebral and cerebral artery:
--- NOTE | 2018-03-31 15:05 | P.PNCA ---
Subjective Interval history: No events overnight Loop recorder placed Medications and Allergies Active Medications: Active Medications Acetaminophen (Tylenol) 650 mg PO Q4H PRN PRN Reason: Headache, fever, pain 1-4 Hydrocodone Bitart/Acetaminophen ([place] 10/325) 1 tab PO Q6H PRN PRN Reason: Pain, Moderate Last Admin: 03/31/18 07:21 Dose: 1 tab Al Hydroxide/Mg Hydroxide (Milk Of Magnesia Liq) 30 ml PO Q12H PRN PRN Reason: Mild Constipation Bisacodyl (Dulcolax Supp) 10 mg RECTAL DAILY PRN PRN Reason: SEVERE CONSITIPATION Carisoprodol (Soma) 350 mg PO BID [facility] Last Admin: 03/31/18 08:50 Dose: 350 mg Heparin Sodium (Porcine) (Heparin Inj) 5,000 units SQ Q12HR [facility] Last Admin: 03/31/18 08:55 Dose: Not Given Cefazolin Sodium/Dextrose (Ancef 2 Gm Premix Inj) 2 gm in 50 mls @ 100 mls/hr IV.SIG INSIDE SALES AGENT [facility] Lactulose (Lactulose Liq) 30 ml PO DAILY PRN PRN Reason: SEVERE CONSITIPATION Levetiracetam (Keppra) 500 mg PO BID [facility] Last Admin: 03/31/18 08:50 Dose: 500 mg Ondansetron HCl (Zofran Inj) 4 mg IV.PUSH Q6H PRN PRN Reason: NAUSEA OR VOMITING Sennosides (Senokot) 17.2 mg PO Q12H PRN PRN Reason: Moderate Constipation Sodium Chloride (Ns Flush) 2 ml IV.FLUSH BID [facility] Last Admin: 03/31/18 08:56 Dose: 2 ml Sodium Chloride (Ns Flush) 2 ml IV.FLUSH PRN PRN PRN Reason: FLUSH AFTER USING IV ACCESS Allergies Allergy/AdvReac Type Severity Reaction Status Date / Time No Known Allergies Allergy Verified 03/28/18 09:12 Home Medications Medication Instructions Recorded Confirmed Type lisinopril 10 mg PO BID 11/19/17 03/28/18 History hydrocodone-acetaminophen [[place]] 1 tab PO Q6H PRN 01/25/18 03/28/18 History levetiracetam [Keppra] 500 mg PO BID 03/28/18 03/28/18 History Physical Exam Vital signs: Vital Signs 03/30/18 16:00 03/30/18 19:36 03/30/18 22:02 Temperature 98.3 F 97.9 F 97.5 F L Pulse Rate 50 L 53 L 51 L Respiratory Rate 16 16 18 Blood Pressure 110/61 107/62 111/63 Pulse Oximetry 97 95 98 03/31/18 00:00 03/31/18 04:00 03/31/18 08:00 Temperature 97.6 F 97.7 F 97.8 F Pulse Rate 44 L 55 L 50 L Respiratory Rate 17 18 17 Blood Pressure 114/59 L 101/63 109/68 Pulse Oximetry 97 98 97 03/31/18 12:00 Temperature 98.0 F Pulse Rate 57 L Respiratory Rate 17 Blood Pressure 108/61 Pulse Oximetry 95 Intake & Output 03/30/18 03/31/18 03/31/18 18:59 06:59 18:59 Intake Total 440 / 440 210 / 210 Balance 440 / 440 210 / 210 Weight 89.6 kg Intake: Oral 440 / 440 210 / 210 Other: # Voids 2 1 Date of Last Bowel Movement 03/29/18 03/29/18 03/29/18 Narrative: GENERAL: NAD, AAOx3 SKIN: Warm and dry. HEAD: Atraumatic. Normocephalic. EYES: Pupils equal and round. No scleral icterus. No injection or drainage. ENT: No nasal bleeding or discharge. Mucous membranes pink and moist. NECK: Trachea midline. No JVD. CARDIOVASCULAR: Regular rate and rhythm. RESPIRATORY: No accessory muscle use. Clear to auscultation. Breath sounds equal bilaterally. GASTROINTESTINAL: Abdomen soft, non-tender, nondistended. Hepatic and splenic margins not palpable. MUSCULOSKELETAL: Extremities without clubbing, cyanosis, or edema. No obvious deformities. NEUROLOGICAL: Awake and alert. No obvious cranial nerve deficits. Motor grossly within normal limits. Five out of 5 muscle strength in the arms and legs. Normal speech. PSYCHIATRIC: Appropriate mood and affect; insight and judgment normal. Results 03/30/18 08:54 03/30/18 08:54 Coagulation 03/30/18 03/31/18 Range/Units 08:54 06:29 PT 10.9 11.4 (9.8-11.6) sec CBC 03/30/18 Range/Units 08:54 WBC 7.6 (4.0-11.0) th/mm3 RBC 4.75 (4.50-5.90) mil/mm3 Hgb 14.2 (13.0-17.0) gm/dL Hct 41.0 (39.0-51.0) % Plt Count 225 (150-450) th/mm3 Comprehensive Metabolic Panel 03/30/18 Range/Units 08:54 Sodium 142 (136-145) meq/L Potassium 4.1 (3.5-5.1) meq/L Chloride 110 H (98-107) meq/L Carbon Dioxide 25.1 (21.0-32.0) meq/L BUN 13 (7-18) mg/dL Creatinine 1.06 (0.60-1.30) mg/dL Calcium 8.6 (8.5-10.1) mg/dL Intake and Output 03/31/18 03/31/18 03/31/18 06:59 14:59 22:59 Intake Total 210 / 210 Balance 210 / 210 Intake: Oral 210 / 210 Other: # Voids 1 Date of Last Bowel Movement 03/29/18 Assessment and Plan - Assessment (1) PFO (patent foramen ovale) Code(s): Q21.1 - Atrial septal defect Status: Acute (2) CVA (cerebral vascular accident) Code(s): I63.9 - Cerebral infarction, unspecified Status: Acute - Plan 1) TIA with a history of CVA Loop recorder placed 2) PFO Will close due to multiple neurologic events without AFib documented Will plan to close tomorrow morning Will need to be on Plavix 6 months after closure ASA 81mg daily Plavix 75mg daily 300mg tomorrow morning 3) No plan on anticoagulation No documented AFib If Afib on loop recorder, then would start anticoagulation, none for now Plan for Plavix with PFO closure
--- NOTE | 2018-03-31 15:37 | MR ---
cc: Jurgen Stewart DO DATE: 03/31/2018 PROCEDURE: 1. Placement of a Medtronic Reveal LINQ loop recorder (model number LMQ11, model number [id number]). 2. Moderate sedation 15 minutes. PREPROCEDURE DIAGNOSES: Previous cerebral vascular accident, transient ischemic attack. POSTPROCEDURE DIAGNOSIS: Multiple neurological events status post loop recorder placement. MEDICATIONS: Ancef 2 grams, Versed 1 mg and fentanyl 50 mcg. ESTIMATED BLOOD LOSS: 10 mL MODERATE SEDATION: 15 minutes. PROCEDURAL SUMMARY: The patient is a pleasant 58-year-old male who presented with what appears to be TIA-like symptoms. He has a previous history of cerebrovascular accident. He was recommended by neurology for a loop recorder placed. Risks, benefits and alternatives were explained to him and he consented to such. He was brought to the lab and prepped in the usual sterile fashion. Left anterior chest wall was anesthetized with lidocaine. A small incision was made over the fourth intercostal space. Loop recorder was injected underneath the skin at a 45 degree angle. R-values were appropriate here, but no P-waves were noted and so loop recorder was removed and placed in a vertical fashion. Once again R-wave values were appropriate, but no P-waves were noted and so the loop recorder was once again taken back and placed into a horizontal position. At this time, R-values were appropriate and P waves were noted. Pressure was held for hemostasis. The patient tolerated the procedure well. HARDWARE: Medtronic Reveal is LINQ (model number LNQ11, serial number [id number]). R-wave 0.45 millivolts. PARAMETERS: Heart rate tachycardia greater than 171 beats per minute, bradycardia less than 30 beats per minute, pause greater than 3 seconds. IMPRESSION: 1. Previous cerebral vascular accident, current transient ischemic attack. 2. Placement of a Medtronic Reveal LINQ loop recorder. 3. Patent foramen ovale. RECOMMENDATIONS: 1. Mr. Spencer underwent a loop recorder placement and interrogations will be sent to our office for further evaluation for atrial fibrillation. 2. At this time, we will hold off on anticoagulation unless atrial fibrillation is seen on the loop recorder. 3. As he does have a PFO and has had multiple neurological events, we will plan on closing his PFO tomorrow morning. Thank you for allowing me to see Ty Spencer. If there are any questions, please do not hesitate to call. DO RAS Abrams/stephen , 03:15 PM , 03:25 PM
[2018-03-31 15:53] LABS: Dil Russell Viper Venom Conf ( ND (NEGATIVE); Dil Russell Viper Venom Time M ND (CORRECTED); Homocysteine (Cardiovascular) 24.1 umol/L (<11.4); Lupus Anticoagulant PTT Screen 29 seconds (< OR = 40)
--- NOTE | 2018-03-31 16:00 | US ---
EXAM DATE: 03/31/2018 3:52 PM EST AGE/SEX: 58 years / Male INDICATIONS: Bilateral leg pain. CLINICAL DATA: This is the patient's initial encounter. Patient reports that signs and symptoms have been present for 1 day and indicates a pain score of 2/10. MEDICAL/SURGICAL HISTORY: Hypertension. Rheumatoid arthritis. Seizures. Psoriasis. Chronic back pain. Bacteremia. TIA/CVA. . Bilateral knee arthroscopy. Sinus surgery. Hand surgery. COMPARISON: No prior exams available for comparison. TECHNIQUE: Venous ultrasound of both lower extremities was performed from the inguinal ligament to t he proximal calf. Real-time, color Doppler and spectral tracing, compression and augmentation techni ques were used. FINDINGS: Right Leg: Normal compression of the deep venous system from the inguinal region to the proximal quin f. No echogenic clot is seen. Normal response of the venous system to augmentation and respiration. Left Leg: Normal compression of the deep venous system from the inguinal region to the proximal calf . No echogenic clot is seen. Normal response of the venous system to augmentation and respiration. Other: None. CONCLUSION: 1. The study is negative for bilateral lower extremity deep venous thrombosis. Electronically signed by: Lazaro Moreno MD Board Certified Radiologist 03/31/2018 3:58 PM EST
--- NOTE | 2018-03-31 16:30 | HM ---
Date Performed: 03/28/2018 Time Performed: 13:52:00 HOOKUP DATE: 03/28/18 01:52:00 PM Sun ANALYSIS START TIME: 03/28/2018 1:57:00 PM ANALYSIS END TIME: 03/29/2018 12:16:32 PM PATIENT AGE: 58 PATIENT HEIGHT PATIENT WEIGHT DRUG LIST PATIENT DIAGNOSIS: TIA/VERTIGO TEST NARRATIVE: The patient's average heart rate was 53 BPM. No episodes of tachycardia wer e noted. Heart rates less than 50 BPM were noted 68% of the time. No pauses exceeding 2.0 second s were noted. 35 ventricular ectopics, which represented < 1% of the total beat count, were noted . The highest ventricular ectopic frequency occurred from 07:00 PM to 08:00 PM Sun. During this antoni e 20 VE(s) occurred. Ventricular ectopics were observed as 35 isolated beat(s) only. No couplets or runs were noted. 110 supraventricular ectopics, which represented < 1% of the total beat count, were noted. The highest supraventricular ectopic frequency occurred from 09:00 AM to 10:00 AM Mon. During this time 25 SVE(s) occurred. No episodes of ST depression (defined as -1.0 mm or more) we re noted in channel 1. No episodes of ST depression (defined as -1.0 mm or more) were noted in chann el 2. No episodes of ST depression (defined as -1.0 mm or more) were noted in channel 3. TEST INTERPRETATION: Patient was monitored for 22 hours. There were 35 PVCs, 91 PACs. Underlying rhythm was normal sinus. Conclusions: normal Sinus rhythm with PACs and PVCs Signed by : Ryan Kang
[2018-04-01 03:51] LABS: Activated Protein C Resistance 4.6 ratio (> OR = 2.1)
[2018-04-01 05:59] LABS: INR 1.1 Ratio; Prothrombin Time 11.4 sec (9.8-11.6)
[2018-04-01] MEDS ORDERED: Heparin/NS PF Inj 1,500 ML ONE (07:51)
[2018-04-01] MEDS ORDERED: fentaNYL Citrate Inj 100 MCG/2 ML Ampul ONE ×2 (08:04→09:31)
[2018-04-01] MEDS ORDERED: Heparin 10,000 UNITS/10 ML Vial (for IV use) ONE (08:07)
[2018-04-01] MEDS: levETIRAcetam 500 MG Tablet PO SCH ×2 (09:00→20:44)
[2018-04-01] MEDS: Carisoprodol 350 MG Tablet PO SCH ×2 (09:00→20:44)
[2018-04-01] MEDS: Heparin - SQ 10,000 UNITS/ML Vial SQ SCH (09:00)
[2018-04-01] MEDS ORDERED: Misc Info for Pharmacy OTHER STA (09:56)
--- NOTE | 2018-04-01 10:08 | CATHPROC ---
[email or web address] HIS Report Study Information Study Number Admission Scheduled Start Study Start [id number] Mar 29 2018 11:29AM 04/01/2018 Apr 01 2018 7:49AM [place] Service Cardiac Catheterization Admit Source Facility Department Other [facility] - Staffing Operations Manager Physician and Clinical Staff Initial Jurgen Hammonds Rn Compliance Maurizio Rehman,JIN Additional Noe Cunha Recorder Caitlin Elam ,RT(R) Martha Salazar,RT(R) (BS) Procedures Performed Procedure Location (Site) Vessel Name PFO Device Deployed RA Atruim Wire insertion Fem Art (right) Femoral Art Equipment Time Fabric Cutter Description Size Mfg Part Number Used/Scraped AMPLATZER MEDICAL [id number] 08:00 GUIDEWIRE, SUPERSTIFF 260CM Used Biotronics3D. *[id number] AMPLATZER MEDICAL 09:33 SEPTAL PFO OCCLUDER, 25MM FR12 [id number] Used Judicata VONDA. AMPLATZER MEDICAL SYSTEM, FR9 TORQUE DELIV 09:32 FR9 [id number] Used Judicata VONDA. 80CM ARROW INTERNATIONAL CATHETER, FR.7 BALLOON [id number] 08:00 FR 7 Used INC. WEDGE PRESSURE *[id number] TRANSDUCER, TRUWAVE [id number] 08:00 FRANKLIN BETANCOURT * Used W/STOCKCOCK *[id number] BIOSENSE ARGUETA [id number] 08:00 CATHETER, ACUNAV FR10 ICE FR 10 Used INC. *[id number] COVER, TRANSDUCER CABLE 612-113 08:00 CONE INSTRUMENTS Used ACUNAV *[id number] *[id number] 08:00 CORDIS/PACER SHEATH, FR10 GASTON 11CM FR 10 Used *[id number] 08:00 CORDIS/PACER SHEATH, FR9 GASTON 11CM FR 9 [id number] Used [id number] 08:00 Augmented Pixels CO BLANKET,WARM AIR CCL * Used *[id number] 08:00 [employer] CO PACK, CCL CUSTOM * Used *[id number] 08:00 Telerik PACER PEN, SKIN DUAL W/ RULER * Used *[id number] WIRE, ANGLED GLIDE .035 09:22 Key Ring 180CM [id number] Used 180CM [id number] 08:00 Key Ring WIRE, EXCHANGE 260CM 3MMJ 260CM Used *[id number] 08:00 NAMIC MANIFOLD, 4 PORT * Used *[id number] 09:19 NYCOMED OMNIPAQUE, 300 MG, 150ML 150ML [id number] Used CATHETER, ACUNAV FR10 ICE [id number] 09:18 MARLENE FR 10 Used (MARLENE) *[id number] CATHETER, ACUNAV FR10 ICE [id number] 09:18 MARLENE FR 10 Used (MARLENE) *[id number] 08:00 TERUMO MEDICAL SHEATH, FR7 TERUMO (10CM) FR 7 Used *[id number] History: Allergies Allergy Reaction *MDRO Multi-Drug Resistant MRSA Organism No Known Allergies Labs Hgb (g/dl) Hct (%) WBC (l/cumm) Platelets (thousands) 11.60-17.00 35.00-51.00 4.00-11.00 150.00-450.00 14.2 41 7.6 225 Glucose (mg/dl) BUN (mg/dl) Creatinine (mg/dl) BUN:Creatinine (1:x) 74.00-106.00 7.00-18.00 0.50-1.30 10.00-20.00 87 13 1.1 11.8 Na (meq/l) K (meq/l) 136.00-145.00 3.50-5.10 142 4.1 INR (PTT:PT) 0.90-1.10 1.1 Troponin I (ng/ml) CPK (u/l) CPK-MB (ng/ML) 0.02-0.05 26.00-308.00 0.50-3.60 0.02 39 Not Drawn Medication Medication Total Dose (Bolus/Oral) Medication Total Dosage/Unit 1% XYLOCAINE 15 mL FENTANYL 150 mcg HEPARIN 7500 units VERSED 3 mg Medications (Bolus/Oral) Medication Time Given Dosage/Unit Administered By Reason FENTANYL 04/01/2018 8:30:33 AM 50 mcg Maurizio Rehman 50 mcg FENTANYL given in lab by Maurizio Rehman, RN in Left Antecubital via Peripheral IV. Ordered by Jurgen Stewart 1% XYLOCAINE 04/01/2018 8:32:51 AM 15 mL Jurgen Stewart 15 mL 1% XYLOCAINE given in lab by Jurgen Stewart via Subcutaneous. Ordered by Jurgen Stewart FENTANYL 04/01/2018 8:40:39 AM 50 mcg Ferlitto, Maurizio 50 mcg FENTANYL given in lab by Maurizio Rehman RN via Peripheral IV. Ordered by Jurgen Stewart VERSED 04/01/2018 8:45:00 AM 1 mg Ferlitto, Maurizio 1 mg VERSED given in lab by Maurizio Rehman RN via Peripheral IV. Ordered by Jurgen Stewart HEPARIN 04/01/2018 8:46:50 AM 6000 units Maurizio Rehman 6000 units HEPARIN given in lab by Maurizio Rehman RN via Peripheral IV. Ordered by Jurgen Stewart HEPARIN 04/01/2018 9:09:18 AM 1500 units Jurgen Stewart 1500 units HEPARIN given in lab by Jurgen Stewart via Peripheral IV. Ordered by Mallika Stewart FENTANYL 04/01/2018 9:32:40 AM 50 mcg Ferlitto, Maurizio 50 mcg FENTANYL given in lab by Maurizio Rehman RN via Peripheral IV. Ordered by Jurgen Stewart VERSED 04/01/2018 9:33:26 AM 1 mg Ferlitto, Maurizio 1 mg VERSED given in lab by Maurizio Rehman RN via Peripheral IV. Ordered by Jurgen Stewart VERSED 04/01/2018 9:36:00 AM 1 mg Ferlitto, Maurizio 1 mg VERSED given in lab by Maurizio Rehman RN via Peripheral IV. Ordered by Jurgen Stewart Medication (Drip) Medication Time Given Dosage/Unit Concentration/Unit Diluent (ml) Solution IV Solutions 04/01/2018 8:00:27 AM 50 mL (IV) NaCl .9 Patient arrived on IV Solutions via Peripheral IV. Pump/Drip Flow using NaCl .9. Initial Case Assessment Cardiovascular HR NIBP Chest Pain 60 122/70 0 Edema Present Skin color Skin None Normal Warm Dry Circulatory - Right Pulses Dorsalis Pedis Femoral 2 2 Scale (0,1,2,3,4,d) Circulatory - Left Pulses Dorsalis Pedis Femoral 2 2 Scale (0,1,2,3,4,d) Neurological State Oriented to time-place- Alert Moves all extremities person Respiration - General Respiration Rate SpO2 (%) (B/min) 20 99 Final Case Assessment Cardiovascular HR NIBP Chest Pain 60 121/78 0 Edema Present Skin color Skin None Normal Warm Dry Circulatory - Right Pulses Dorsalis Pedis Femoral 2 2 Scale (0,1,2,3,4,d) Circulatory - Left Pulses Dorsalis Pedis Femoral 2 2 Scale (0,1,2,3,4,d) Neurological State Oriented to time-place- Alert Moves all extremities person Respiration - General Respiration Rate SpO2 (%) (B/min) 20 99 Chronological Log Time Study Chronological Log 7:49:33 Patient arrived via Bed. 7:49:34 Patient Name, D.O.B, / Armband Verified By R.N. Vitals capture started with the following parameters, Patient=Adult, Interval=5 min, Initial Pr vopkph=389 mmHg, 7:55:48 Deflation Rate=5 mmHg, Cuff placed on Right Arm 7:56:21 HR=56 bpm, FFYI=658/70 mmhg, ZhR1=111.0 %, Resp=17 B/min 8:00:13 Consent signed by the physician and the patient and verified by the Staffing Operations Manager staff. 8:00:18 Verbal Stimulation=2 Physical Stimulation=2 Airway=2 Respiration=2 TOTAL=8. (0=absent, 1=li mited, 2=present) 8:00:20 Patient has been NPO for More than 6Hrs. 8:00:22 Patient Warmer Placed on the Table. 8:00:26 Bruce Prominences Protected 8:00:26 A # 20 IV was noted in the Antecubital (left). Grade = 0 8:00:27 Patient arrived on IV Solutions via Peripheral IV. Pump/Drip Flow using NaCl .9. 8:00:29 History and physical on the chart or being dictated. Assessment: Initial Case, HR=60 BPM, WCYS=333/70 mmhg, Chest Pain=0, Edema=None, Color=Normal, Skin = Warm, Dry Right Pulses: Cameron Ped=2, Femoral=2 8:00:29 Left Pulses: Cameron Ped=2, Femoral=2 Neurological: State=Alert, Ox3, SOTELO Respiration: Resp=20 B/min, SpO2=99 % 8:01:14 Skin Breakdown- none per patient 8:01:24 HR=59 bpm, FBLQ=224/71 mmhg, SpO2=99.0 %, Resp=17 B/min 8:06:49 HR=55 bpm, TMUZ=150/74 mmhg, SpO2=98.0 %, Resp=16 B/min 8:08:11 Reference ECG taken 8:08:20 Bilateral groins prepped with 2% chlorhexidine, and draped after a 3 minute waiting time. 8:11:20 HR=55 bpm, XERH=932/76 mmhg, SpO2=98.0 %, Resp=12 B/min 8:16:23 HR=53 bpm, XDXM=333/76 mmhg, SpO2=99.0 %, Resp=11 B/min 8:17:07 MD arrived. 8:22:03 HR=57 bpm, WFJL=284/77 mmhg, SpO2=99.0 %, Resp=24 B/min 8:22:18 Pressure channel 1 zeroed. 8:26:25 HR=56 bpm, EVJB=231/74 mmhg, SpO2=99.0 %, Resp=11 B/min 50 mcg FENTANYL given in lab by Maurizio Rehman, JIN in Left Antecubital via Peripheral IV. Ordere d by Jurgen Stewart 8:30:33 G. 8:31:26 HR=57 bpm, FZJQ=564/77 mmhg, SpO2=99.0 %, Resp=13 B/min Time Out. Correct patient, correct procedure, correct physician, labs, allergies, and equipment verified with slab inspector 8:32:30 team present. Fire risk assesment completed (see hard stop sheet for coding). Time Out Concu rred by MD and individual staff in procedure. 8:32:50 Case Start 8:32:51 15 mL 1% XYLOCAINE given in lab by Jurgen Stewart via Subcutaneous. Ordered by Jurgen Stewart 8:36:25 HR=56 bpm, IIRG=384/81 mmhg, XdD2=361.0 %, Resp=13 B/min 8:40:39 50 mcg FENTANYL given in lab by Maurizio Rehman, JIN via Peripheral IV. Ordered by Ronal Stewart 8:41:28 HR=60 bpm, IYAX=512/78 mmhg, SpO2=99.0 %, Resp=15 B/min 8:44:46 Vascular access was obtained in the Fem Vein (right). 8:44:56 Vascular access was obtained in the Fem Vein (right). 8:45:00 1 mg VERSED given in lab by Maurizio Rehman, JIN via Peripheral IV. Ordered by Pelon Stewart 8:45:02 A SHEATH, FR10 GASTON 11CM FR 10 was advanced into the Fem Vein (right) using the Percutaneo us technique. 8:45:34 A SHEATH, FR7 TERUMO (10CM) FR 7 was advanced into the Fem Vein (right) using the Percutaneo us technique. 8:46:27 HR=77 bpm, SNKZ=577/79 mmhg, SpO2=97.0 %, Resp=15 B/min 8:46:50 6000 units HEPARIN given in lab by Maurizio Rehman RN via Peripheral IV. Ordered by Jurgen Stewart 8:47:54 A CATHETER, FR.7 BALLOON WEDGE PRESSURE FR 7 was inserted via Fem Vein (right) Recorded Pressure: RA, HR=63, Condition=Condition 1 8:48:26 (Right Atrium) RA 9/4/3 Recorded Pressure: RV, HR=65, Condition=Condition 1 8:48:58 (Right Ventricle) RV 27/0/6 Recorded Pressure: MPA, HR=63, Condition=Condition 1 8:50:47 (Main Pulmonary Artery) MPA 18/3/10 Recorded Pressure: PCW, HR=63, Condition=Condition 1 8:50:55 (Pulmonary Capillary Wedge) PCW 7/4 8:51:28 HR=63 bpm, REZP=360/84 mmhg, SpO2=97.0 %, Resp=12 B/min 8:51:36 Saturation: Site=PA (Pulmonary Artery) , O2=81.7 %, Hgb=14.2 gm/dl, Condition=Condition 1. U sed in calculation. 8:52:24 Saturation: Site=Ao (Aorta) , O2=96 %, Hgb=14.2 gm/dl, Condition=Condition 1. Used in calcul ation. 8:52:41 Saturation: Site=RV (Right Ventricle) , O2=80 %, Hgb=14.2 gm/dl, Condition=Condition 1. Used in calculation. 8:53:03 Saturation: Site=RA (Right Atrium) , O2=80.2 %, Hgb=14.2 gm/dl, Condition=Condition 1. Used in calculation. 8:53:30 [place]ba Catheter Removed 8:54:57 Activated Clotting Time Drawn 8:56:32 HR=60 bpm, WOUD=700/79 mmhg, SpO2=98.0 %, Resp=6 B/min 9:01:31 HR=57 bpm, MUAV=657/76 mmhg, SpO2=97.0 %, Resp=12 B/min 9:03:38 Troubleshooting echo/ICE 9:06:34 HR=57 bpm, YKZS=858/76 mmhg, SpO2=98.0 %, Resp=13 B/min, Pain=0, Cynthia=10, Becerra=2 9:09:18 1500 units HEPARIN given in lab by Jurgen Stewart via Peripheral IV. Ordered by Jurgen Galicia. 9:11:10 ACT (Normal Range 90-180) = 299 9:11:33 HR=53 bpm, BWBJ=124/74 mmhg, SpO2=96.0 %, Resp=9 B/min 9:16:34 HR=57 bpm, GGMX=969/77 mmhg, SpO2=97.0 %, Resp=14 B/min 9:18:42 Activated Clotting Time Drawn 9:18:45 A MPA-2 INFINITI CATHETER FR 5 was advanced over a wire. contrast was used for injections. 9:21:19 Saturation: Site=Ao (Aorta) , O2=96.8 %, Hgb=14.2 gm/dl, Condition=Condition 1. Used in calc ulation. 9:21:29 HR=57 bpm, ATYB=638/78 mmhg, SpO2=98.0 %, Resp=14 B/min 9:21:50 A WIRE, ANGLED GLIDE .035 180CM 180CM was inserted via Fem Art (right). 9:26:34 HR=55 bpm, TTYK=038/75 mmhg, SpO2=98.0 %, Resp=8 B/min 9:31:29 HR=58 bpm, NOWQ=190/74 mmhg, SpO2=97.0 %, Resp=13 B/min 9:32:40 50 mcg FENTANYL given in lab by Maurizio Rehman, JIN via Peripheral IV. Ordered by Ronal Stewart 9:33:26 1 mg VERSED given in lab by Maurizio Rehman, JIN via Peripheral IV. Ordered by Pelon Stewart A SYSTEM, FR9 TORQUE DELIV 80CM FR9 was exchanged in the Fem Art (right). This was necessary in order to 9:33:52 accomodate a larger catheter. 9:36:00 1 mg VERSED given in lab by Maurizio Rehman, JIN via Peripheral IV. Ordered by Pelon Stewart 9:36:32 HR=73 bpm, NSZJ=764/80 mmhg, SpO2=97.0 %, Resp=14 B/min 9:39:01 SEPTAL PFO OCCLUDER, 25MM FR12 Deployed. 9:41:33 HR=58 bpm, WYNF=376/74 mmhg, SpO2=96.0 %, Resp=17 B/min 9:47:11 HR=56 bpm, JRGL=383/76 mmhg, SpO2=96.0 %, Resp=15 B/min A SHEATH, FR9 GASTON 11CM FR 9 was exchanged in the Fem Art (right). This was necessary in order to minimize 9:48:23 site leakage. 9:50:37 Case End (Physician broke scrub) 9:51:31 HR=57 bpm, XSOI=361/78 mmhg, SpO2=97.0 %, Resp=19 B/min Assessment: Final Case, HR=60 BPM, DEPK=894/78 mmhg, Chest Pain=0, Edema=None, Color=Normal, Ski n = Warm, Dry Right Pulses: Cameron Ped=2, Femoral=2 9:55:38 Left Pulses: Cameron Ped=2, Femoral=2 Neurological: State=Alert, Ox3, SOTELO Respiration: Resp=20 B/min, SpO2=99 % 9:55:48 Catheter(s) removed without difficulty 9:55:52 In the Fem Art (right) the sheath was sutured in place by Noe Helm. 9:55:53 In the Fem Vein (right) the SHEATH, FR9 GASTON 11CM FR [address] by Vince Infante RT(R) (BS). 9:56:05 In the Fem Vein (right) the SHEATH, FR10 GASTON 11CM FR [address] by Martha Infante RT(R) (BS). 9:56:15 Sterile dressing applied to site 9:56:16 No case complications noted. 9:56:17 Cine recording checked. 9:56:17 Bedside Report will be given. 9:56:19 Implantable Device card placed in patient's chart. 9:56:34 HR=53 bpm, OKIK=308/80 mmhg, SpO2=97.0 %, Resp=9 B/min 10:01:35 HR=51 bpm, ECLJ=230/77 mmhg, SpO2=98.0 %, Resp=15 B/min 10:06:58 [facility] End Study - Contrast Media Used In Study Contrast Total Opened (mL) Total Used (mL) Total Wasted (mL) Omnipaque 0 0 0 End Study - Maximum Contrast Load Max Contrast Load (mL) 401.4 End Study - Radiation Exposure Fluoro Time Fluoro Dose (mGy) Cine Dose (uGym2) (minutes) 13.3 [id number] End Study - Patient Disposition Complications Transferred To Telemetry Bed
[2018-04-01 12:08] LABS: Factor V Leiden Mutation Negative (Negative); Protein C Antigen 96 % (70-150)
--- NOTE | 2018-04-01 14:48 | P.PNIM ---
Subjective Interval history: in no acute distress. looks comfortable. no new complaints. Physical Exam Vital signs: Last Vital Signs Temp 97.7 F 04/01/18 04:00 Pulse 58 L 04/01/18 08:00 Resp 18 04/01/18 14:16 BP 103/62 04/01/18 04:00 Pulse Ox 96 04/01/18 04:00 Intake & Output 03/30/18 03/31/18 04/01/18 04/02/18 06:59 06:59 06:59 06:59 Intake Total 1300 / 1300 650 / 650 1200 / 1200 Balance 1300 / 1300 650 / 650 1200 / 1200 Weight 89.6 kg 88.3 kg Constitutional no acute distress Routine Respiratory Exam Present CTA bilaterally Routine Cardiovascular Exam Present RRR Routine Abdominal Exam Present soft Routine Extremities Exam Comments: no pedal edema. Routine Neurological Exam Present alert and oriented X3 Results Labs CBC & Chem 7: 03/30/18 08:54 03/30/18 08:54 Imaging Imaging: Impressions Venous Doppler Study 03/31/18 00:00 CONCLUSION: 1. The study is negative for bilateral lower extremity deep venous thrombosis. Assessment and Plan (1) PFO (patent foramen ovale): Code(s): Q21.1 - Atrial septal defect Status: Acute (2) CVA (cerebral vascular accident): Code(s): I63.9 - Cerebral infarction, unspecified Status: Acute Plan A/P TIA with history of CVA - s/p loop recorder placement and PFO closure-will add statin- will likely discharge on Plavix- neurology and cardiology following. SEIZURE disorder on Keppra , stable HTN controlled dvt prophylaxis sq heparin dispo - home after loop recorder and pfo repair completed - and cleared by neurology and cardiology. Progress Note: Quality VTE Deep Vein Thrombosis/Pulmonary Embolism Present on Admission: No _ (1) CVA (cerebral vascular accident) Qualifiers: CVA mechanism: Laterality of affected vessel: Precerebral and cerebral artery:
--- NOTE | 2018-04-01 23:44 | P.PNCA ---
Subjective Interval history: Loop recorder placed yesterday PFO closure today Doing well Medications and Allergies Active Medications: Active Medications Acetaminophen (Tylenol) 650 mg PO Q4H PRN PRN Reason: Headache, fever, pain 1-4 Hydrocodone Bitart/Acetaminophen ([place] 10/325) 1 tab PO Q4H PRN PRN Reason: Pain, Moderate Last Admin: 04/01/18 22:58 Dose: 1 tab Al Hydroxide/Mg Hydroxide (Milk Of Magnesia Liq) 30 ml PO Q12H PRN PRN Reason: Mild Constipation Aspirin (Ecotrin) 81 mg PO DAILY COUNT INCLUDES THE [facility] Last Admin: 04/01/18 09:00 Dose: Not Given Atorvastatin Calcium (Lipitor) 20 mg PO DAILY COUNT INCLUDES THE [facility] Bisacodyl (Dulcolax Supp) 10 mg RECTAL DAILY PRN PRN Reason: SEVERE CONSITIPATION Carisoprodol (Soma) 350 mg PO BID COUNT INCLUDES THE [facility] Last Admin: 04/01/18 20:44 Dose: 350 mg Clopidogrel Bisulfate (Plavix) 75 mg PO DAILY COUNT INCLUDES THE [facility] Heparin Sodium (Porcine) (Heparin Inj) 5,000 units SQ Q12HR COUNT INCLUDES THE [facility] Last Admin: 04/01/18 09:00 Dose: Not Given Cefazolin Sodium/Dextrose (Ancef 2 Gm Premix Inj) 2 gm in 50 mls @ 100 mls/hr IV.SIG [place] OPERATOR COUNT INCLUDES THE [facility] Lactulose (Lactulose Liq) 30 ml PO DAILY PRN PRN Reason: SEVERE CONSITIPATION Levetiracetam (Keppra) 500 mg PO BID COUNT INCLUDES THE [facility] Last Admin: 04/01/18 20:44 Dose: 500 mg Ondansetron HCl (Zofran Inj) 4 mg IV.PUSH Q6H PRN PRN Reason: NAUSEA OR VOMITING Sennosides (Senokot) 17.2 mg PO Q12H PRN PRN Reason: Moderate Constipation Sodium Chloride (Ns Flush) 2 ml IV.FLUSH BID COUNT INCLUDES THE [facility] Last Admin: 04/01/18 20:45 Dose: 2 ml Sodium Chloride (Ns Flush) 2 ml IV.FLUSH PRN PRN PRN Reason: FLUSH AFTER USING IV ACCESS Sodium Chloride (Ns Flush) 2 ml IV.FLUSH BID COUNT INCLUDES THE [facility] Last Admin: 04/01/18 20:45 Dose: Not Given Sodium Chloride (Ns Flush) 2 ml IV.FLUSH PRN PRN PRN Reason: FLUSH AFTER USING IV ACCESS Allergies Allergy/AdvReac Type Severity Reaction Status Date / Time No Known Allergies Allergy Verified 03/28/18 09:12 Home Medications Medication Instructions Recorded Confirmed Type lisinopril 10 mg PO BID 11/19/17 03/28/18 History hydrocodone-acetaminophen [[place]] 1 tab PO Q6H PRN 01/25/18 03/28/18 History levetiracetam [Keppra] 500 mg PO BID 03/28/18 03/28/18 History Physical Exam Vital signs: Vital Signs 03/31/18 23:48 04/01/18 03:45 04/01/18 04:00 Temperature 97.7 F Pulse Rate 50 L 52 L 48 L Respiratory Rate 16 Blood Pressure 103/62 Pulse Oximetry 96 04/01/18 08:00 04/01/18 13:15 04/01/18 13:30 Temperature Pulse Rate 58 L 60 64 Respiratory Rate 18 Blood Pressure 122/79 Pulse Oximetry 98 04/01/18 14:00 04/01/18 14:16 04/01/18 14:50 Temperature Pulse Rate 62 Respiratory Rate 18 18 Blood Pressure Pulse Oximetry 04/01/18 15:02 04/01/18 16:00 04/01/18 17:00 Temperature Pulse Rate 66 64 54 L Respiratory Rate 20 Blood Pressure 112/79 Pulse Oximetry 98 04/01/18 17:57 04/01/18 18:45 Temperature Pulse Rate 54 L Respiratory Rate 20 Blood Pressure Pulse Oximetry Intake & Output 04/01/18 04/01/18 04/02/18 06:59 18:59 06:59 Intake Total 720 / 720 Output Total 600 / 600 Balance 120 / 120 Weight 88.3 kg Intake: Oral 720 / 720 Output: Urine 600 / 600 Other: # Voids 2 Date of Last Bowel Movement 03/29/18 Narrative: GENERAL: NAD, AAOx3 SKIN: Warm and dry. HEAD: Atraumatic. Normocephalic. EYES: Pupils equal and round. No scleral icterus. No injection or drainage. ENT: No nasal bleeding or discharge. Mucous membranes pink and moist. NECK: Trachea midline. No JVD. CARDIOVASCULAR: Regular rate and rhythm. RESPIRATORY: No accessory muscle use. Clear to auscultation. Breath sounds equal bilaterally. GASTROINTESTINAL: Abdomen soft, non-tender, nondistended. Hepatic and splenic margins not palpable. MUSCULOSKELETAL: Extremities without clubbing, cyanosis, or edema. No obvious deformities. NEUROLOGICAL: Awake and alert. No obvious cranial nerve deficits. Motor grossly within normal limits. Five out of 5 muscle strength in the arms and legs. Normal speech. PSYCHIATRIC: Appropriate mood and affect; insight and judgment normal. Results 03/30/18 08:54 03/30/18 08:54 Coagulation 03/31/18 04/01/18 Range/Units 06:29 04:32 PT 11.4 11.4 (9.8-11.6) sec Intake and Output 04/01/18 04/01/18 04/02/18 14:59 22:59 06:59 Intake Total 720 / 720 Output Total 600 / 600 Balance 120 / 120 Intake: Oral 720 / 720 Output: Urine 600 / 600 Other: Date of Last Bowel Movement 03/29/18 03/29/18 - Imaging and Cardiology Imaging: Impressions Venous Doppler Study 03/31/18 00:00 CONCLUSION: 1. The study is negative for bilateral lower extremity deep venous thrombosis. Assessment and Plan - Assessment (1) PFO (patent foramen ovale) Code(s): Q21.1 - Atrial septal defect Status: Acute Plan: seen by loop, given multiple cva, feel anticoagulation reasonable (2) CVA (cerebral vascular accident) Code(s): I63.9 - Cerebral infarction, unspecified Status: Acute Plan: pfo seen by machelle; pt declines loop, probably will require anticoagulation. - Plan 1) TIA with a history of CVA Loop recorder placed 2) PFO Endovascular closure with a [employer] [place] 25mm PFO Occluder Will need to be on Plavix for at least 6 months after closure, but most likely continue indefinitely with CVA/TIA If found to have AFib, then would change Plavix to oral anticoagulant ASA 81mg daily Echo in AM, if no problems then will plan on discharging home 3) No plan for anticoagulation No documented AFib If Afib on loop recorder, then would start anticoagulation, none for now Plan for Plavix with PFO closure
[2018-04-02 00:40] VITALS: RESP 16
[2018-04-02] MEDS: Heparin - SQ 10,000 UNITS/ML Vial SQ SCH ×2 (02:37→08:14)
--- NOTE | 2018-04-02 05:27 | MA ---
cc: Jurgen Stweart DO DATE: 04/01/2018 MULTIMEDIA EDITOR: Jurgen Stewart DO SECONDARY DIAMOND SIZER AND SORTER: Noe Helm MD PROCEDURE: Endovascular closure of PFO with a [employer] Amplatzer 25 mm PFO occluder (lot #[id number]), right heart catheterization, moderate sedation 60 minutes. PREPROCEDURE DIAGNOSIS: Previous accident with a recent TIA, PFO. POSTPROCEDURE DIAGNOSIS: PFO status post endovascular closure with a [employer] Amplatzer 25 mm PFO occluder. MEDICATIONS: Versed 3 mg, fentanyl 150 mcg, heparin 7500 units. MODERATE SEDATION: 60 minutes. FLUOROSCOPY TIME: 13.3 minutes. ESTIMATED BLOOD LOSS: 10 mL. PROCEDURAL SUMMARY: Ty Spencer is a pleasant 58-year-old male who presented to [facility] and was found to have a TIA. He previously had a CVA. During the workup, he underwent a transesophageal echocardiogram and was found to have a PFO. Due to his multiple cerebral events without a diagnosable cause and a patent foramen ovale, he was recommended closure. Risks, benefits and alternatives were explained to him and he consented as such. He was brought to the lab and prepped in the usual sterile fashion. Right femoral vein was accessed using a modified Seldinger technique and placement of a 10-Sami sheath. Right femoral vein was accessed a second time with the modified Seldinger technique and placement of a 7-Sami sheath. aspirated and flushed. A Marks-Bubba catheter was advanced to a wedge position with oxygen saturations and pressures were recorded throughout the right side of the heart. Marks-Bubba catheter was removed. We attempted to place the intracardiac echocardiogram catheter, but was unable to get it to function. A second one was attempted, but was unable to function with the machine, so we decided at that time, transthoracic echo should be used. A Multipurpose was advanced up into the right atrium over a J-wire. J-wire crossed over the PFO. J-wire was used to find the pulmonary vein and the Multipurpose was then advanced into the pulmonary vein. The Amplatzer wire was then placed and the Multipurpose was removed. Sheath and PFO occluder were prepared on the back table. The 7-Sami sheath was removed and the Amplatzer sheath was taken across into the left atrium. After removal of the dilator and wire, sheath position was lost in the left atrium and pulled back into the right atrium. At this time, the Multipurpose was used to place the wire into the pulmonary vein. The dilator was then advanced back up and the sheath was advanced back across the PFO. Dilator and wire were removed. The 25 mm PFO occluder was placed in the sheath and the sheath was pulled back along the left atrial . This was pulled back slightly against the left interatrial septum. The sheath was then pulled back further to allow the formation of the right atrial disk. This was reviewed on transthoracic echo showing both disks in place. The PFO occluder was then pushed and pulled to make sure in a stable position. At that time, it was then released. The sheath was then exchanged for a short 9-Sami sheath. Heparin was given throughout the procedure and ACT value was greater than 300. Sheaths were sutured in place with the plan to remove once ACT values were appropriate. The patient was given 300 mg of Plavix that morning and an additional 300 mg of Plavix was given in the lab. 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 HARDWARE: [employer] Amplatzer 25 mm PFO occluder (lot #[id number]). IMPRESSION: 1. Transient ischemic attack with a history of cerebrovascular accident. 2. Patent foramen ovale status post endovascular closure with a [employer] Amplatzer 25 mm patent foramen ovale occluder. RECOMMENDATIONS: 1. Mr. Spencer underwent endovascular closure of his PFO. He will be recommended aspirin indefinitely and Plavix for at least 6 months. Due to his TIA and CVA, I believe that he should continue this long-term. 2. He has had a loop recorder placed and if he is found to have atrial fibrillation, then Plavix can be exchanged out for an oral anticoagulant. 3. We will check a 2D echo in the morning to further evaluate his PFO closure. 4. If no problems on the echo, he will be discharged home. Thank you for allowing me to see Ty Spencer. If you have any questions, please do not hesitate to call. Jurgen Stewart, DO VGP/[facility]/kd , 12:29 AM , 12:43 AM
[2018-04-02 05:33] LABS: INR 1.1 Ratio; Prothrombin Time 10.7 sec (9.8-11.6)
--- NOTE | 2018-04-02 07:21 | P.PNNEU ---
Subjective Active Medications: Active Medications Acetaminophen (Tylenol) 650 mg PO Q4H PRN PRN Reason: Headache, fever, pain 1-4 Hydrocodone Bitart/Acetaminophen ([place] 10/325) 1 tab PO Q4H PRN PRN Reason: Pain, Moderate Last Admin: 04/02/18 03:17 Dose: 1 tab Al Hydroxide/Mg Hydroxide (Milk Of Magnesia Liq) 30 ml PO Q12H PRN PRN Reason: Mild Constipation Aspirin (Ecotrin) 81 mg PO DAILY [facility] Last Admin: 04/01/18 09:00 Dose: Not Given Atorvastatin Calcium (Lipitor) 20 mg PO DAILY [facility] Bisacodyl (Dulcolax Supp) 10 mg RECTAL DAILY PRN PRN Reason: SEVERE CONSITIPATION Carisoprodol (Soma) 350 mg PO BID [facility] Last Admin: 04/01/18 20:44 Dose: 350 mg Clopidogrel Bisulfate (Plavix) 75 mg PO DAILY [facility] Heparin Sodium (Porcine) (Heparin Inj) 5,000 units SQ Q12HR [facility] Last Admin: 04/02/18 02:37 Dose: Not Given Cefazolin Sodium/Dextrose (Ancef 2 Gm Premix Inj) 2 gm in 50 mls @ 100 mls/hr IV.SIG CRUSHER AND BLENDER OPERATOR [facility] Lactulose (Lactulose Liq) 30 ml PO DAILY PRN PRN Reason: SEVERE CONSITIPATION Levetiracetam (Keppra) 500 mg PO BID [facility] Last Admin: 04/01/18 20:44 Dose: 500 mg Ondansetron HCl (Zofran Inj) 4 mg IV.PUSH Q6H PRN PRN Reason: NAUSEA OR VOMITING Sennosides (Senokot) 17.2 mg PO Q12H PRN PRN Reason: Moderate Constipation Sodium Chloride (Ns Flush) 2 ml IV.FLUSH BID [facility] Last Admin: 04/01/18 20:45 Dose: 2 ml Sodium Chloride (Ns Flush) 2 ml IV.FLUSH PRN PRN PRN Reason: FLUSH AFTER USING IV ACCESS Sodium Chloride (Ns Flush) 2 ml IV.FLUSH BID [facility] Last Admin: 04/01/18 20:45 Dose: Not Given Sodium Chloride (Ns Flush) 2 ml IV.FLUSH PRN PRN PRN Reason: FLUSH AFTER USING IV ACCESS Allergies/Adverse Reactions: Allergies Allergy/AdvReac Type Severity Reaction Status Date / Time No Known Allergies Allergy Verified 03/28/18 09:12 Physical Exam Vital signs: Vital Signs 04/01/18 08:00 04/01/18 13:15 04/01/18 13:30 Temperature Pulse Rate 58 L 60 64 Respiratory Rate 18 Blood Pressure 122/79 Pulse Oximetry 98 04/01/18 14:00 04/01/18 14:16 04/01/18 14:50 Temperature Pulse Rate 62 Respiratory Rate 18 18 Blood Pressure Pulse Oximetry 04/01/18 15:02 04/01/18 16:00 04/01/18 17:00 Temperature Pulse Rate 66 64 54 L Respiratory Rate 20 Blood Pressure 112/79 Pulse Oximetry 98 04/01/18 17:57 04/01/18 18:45 04/01/18 19:00 Temperature Pulse Rate 54 L 54 L Respiratory Rate 20 Blood Pressure Pulse Oximetry 04/01/18 20:00 04/01/18 21:00 04/01/18 22:00 Temperature 97.7 F Pulse Rate 58 L 54 L 54 L Respiratory Rate 16 Blood Pressure 114/68 Pulse Oximetry 98 04/01/18 23:00 04/02/18 00:00 04/02/18 01:00 Temperature 97.5 F L Pulse Rate 54 L 48 L 54 L Respiratory Rate 16 Blood Pressure 106/69 Pulse Oximetry 96 04/02/18 02:00 04/02/18 03:00 04/02/18 04:00 Temperature 97.6 F Pulse Rate 52 L 51 L 50 L Respiratory Rate 16 Blood Pressure 109/72 Pulse Oximetry 96 04/02/18 05:00 04/02/18 06:00 Temperature Pulse Rate 52 L 51 L Respiratory Rate Blood Pressure Pulse Oximetry Intake & Output 04/01/18 04/02/18 04/02/18 18:59 06:59 18:59 Intake Total 720 / 720 240 / 240 Output Total 600 / 600 Balance 120 / 120 240 / 240 Weight 88.5 kg Intake: Oral 720 / 720 240 / 240 Output: Urine 600 / 600 Other: # Voids 2 Date of Last Bowel Movement 03/29/18 Narrative: vffr minimal left facial droop 5/5 bue and ble nl speech Objective Laboratory Results - last 24 hr 03/28/18 03/28/18 03/29/18 13:30 13:37 15:09 PT INR Protein C Antigen 96 Protein S Activity 153 Antithrombin III Activ 106 Factor V Leiden Mutat Negative Factor V Leiden Interp . Fact V Leiden Review By Brittany rod m.d. Factor VIII Activity 60 Methylmalonic Acid 0.11 Beta-2-GPI IgG Ab <9 Beta-2-GPI IgA Ab <9 Beta-2-GPI IgM Ab <9 Anti-Cardiolipin IgG Ab <9.4 Anti-Cardiolipin IgM Ab <9.4 MTHFR Mutation Detect Prothrombin [id number] Mut 04/02/18 03:40 PT 10.7 INR 1.1 Protein C Antigen Protein S Activity Antithrombin III Activ Factor V Leiden Mutat Factor V Leiden Interp Fact V Leiden Review By Factor VIII Activity Methylmalonic Acid Beta-2-GPI IgG Ab Beta-2-GPI IgA Ab Beta-2-GPI IgM Ab Anti-Cardiolipin IgG Ab Anti-Cardiolipin IgM Ab MTHFR Mutation Detect Prothrombin [id number] Mut Review/Management - Review/Management Plan: imp dropped qrs last noc and some jefferson on coumadin he agrees to loop he can get out and work with hx of sz i told him he does not need to be on disability and then can afford loop cards working on plan 03/31/18 doing well hyper pend thx so much for great cardiology team for loop and pfo closure i am ok with plavix not coumadin after dc 04/02/18 loop in and pfo closed ok to dc on plavix and needs fu with cards hypercoag neg
[2018-04-02] MEDS: Carisoprodol 350 MG Tablet PO SCH (08:16)
[2018-04-02] MEDS: levETIRAcetam 500 MG Tablet PO SCH (08:17)
--- NOTE | 2018-04-02 10:16 | ECHRPT ---
Indication: PFO CLOSURE CONCLUSIONS Limited echo for PFO closure An interatrial septal occluder closure device is present in a well seated position. No flow noted across interatrial septum. No pericardial effusion. BP: / HR: Rhythm: MEASUREMENTS (Male / Female) Normal Values Technical Quality: 2D ECHO LV Diastolic Diameter PLAX 3.3 cm 4.2 - 5.9 / 3.9 - 5.3 cm LV Systolic Diameter PLAX 2.4 cm IVS Diastolic Thickness 1.1 cm 0.6 - 1.0 / 0.6 - 0.9 cm LVPW Diastolic Thickness 1.1 cm 0.6 - 1.0 / 0.6 - 0.9 cm LV Relative Wall Thickness 0.7 FINDINGS ATRIAL SEPTUM An interatrial septal occluder closure device is present in a well seated position. No flow noted across interatrial septum. PERICARDIUM No pericardial effusion. Jurgen Stewart DO (Electronically Signed) Final Date:02 April 2018 10:15
[2018-04-02 12:08] VITALS: BP 103/71; TEMP 97.8; O2SAT 98
[2018-04-02 12:15] VITALS: PULSE 65
--- NOTE | 2018-04-02 13:31 | P.PNIM ---
Subjective Interval history: Patient says he is feeling well and would like to go home. Denies any chest pain or shortness of breath. Denies any nausea or vomiting. Denies any lightheadedness or dizziness. Physical Exam Vital signs: Vital Signs 04/01/18 13:30 04/01/18 14:00 04/01/18 14:16 Temperature Pulse Rate 64 62 Respiratory Rate 18 Blood Pressure Pulse Oximetry 04/01/18 14:50 04/01/18 15:02 04/01/18 16:00 Temperature Pulse Rate 66 64 Respiratory Rate 18 20 Blood Pressure 112/79 Pulse Oximetry 98 04/01/18 17:00 04/01/18 17:57 04/01/18 18:45 Temperature Pulse Rate 54 L 54 L Respiratory Rate 20 Blood Pressure Pulse Oximetry 04/01/18 19:00 04/01/18 20:00 04/01/18 21:00 Temperature 97.7 F Pulse Rate 54 L 58 L 54 L Respiratory Rate 16 Blood Pressure 114/68 Pulse Oximetry 98 04/01/18 22:00 04/01/18 23:00 04/02/18 00:00 Temperature 97.5 F L Pulse Rate 54 L 54 L 48 L Respiratory Rate 16 Blood Pressure 106/69 Pulse Oximetry 96 04/02/18 01:00 04/02/18 02:00 04/02/18 03:00 Temperature Pulse Rate 54 L 52 L 51 L Respiratory Rate Blood Pressure Pulse Oximetry 04/02/18 04:00 04/02/18 05:00 04/02/18 06:00 Temperature 97.6 F Pulse Rate 50 L 52 L 51 L Respiratory Rate 16 Blood Pressure 109/72 Pulse Oximetry 96 04/02/18 07:00 04/02/18 08:00 04/02/18 08:17 Temperature 97.7 F Pulse Rate 52 L 56 L Respiratory Rate 16 16 Blood Pressure 111/73 Pulse Oximetry 100 04/02/18 09:00 04/02/18 09:39 04/02/18 10:54 Temperature Pulse Rate 78 52 L 66 Respiratory Rate Blood Pressure Pulse Oximetry 04/02/18 11:59 04/02/18 12:00 04/02/18 12:15 Temperature 97.8 F Pulse Rate 67 65 Respiratory Rate 16 16 Blood Pressure 103/71 Pulse Oximetry 98 Intake & Output 04/01/18 04/02/18 04/02/18 18:59 06:59 18:59 Intake Total 720 / 720 240 / 240 Output Total 600 / 600 Balance 120 / 120 240 / 240 Weight 88.5 kg Intake: Oral 720 / 720 240 / 240 Output: Urine 600 / 600 Other: # Voids 2 Date of Last Bowel Movement 03/29/18 Narrative: GENERAL: Patient lying in bed. Appears comfortable. SKIN: Warm and dry. HEAD: Normocephalic. EYES: No scleral icterus. No injection or drainage. NECK: Supple, trachea midline. No JVD. CARDIOVASCULAR: Regular rate and rhythm without murmurs, gallops, or rubs. RESPIRATORY: Breath sounds equal bilaterally. No accessory muscle use. GASTROINTESTINAL: Abdomen soft, non-tender, nondistended. MUSCULOSKELETAL: No cyanosis, or edema. BACK: Nontender without obvious deformity. No CVA tenderness. Results - Labs CBC & Chem 7: 03/30/18 08:54 03/30/18 08:54 Laboratory Results - last 24 hr 03/28/18 03/29/18 04/02/18 13:37 15:09 03:40 PT 10.7 INR 1.1 Factor VIII Activity 60 MTHFR Mutation Detect Prothrombin [id number] Mut Assessment and Plan - Assessment (1) PFO (patent foramen ovale) Code(s): Q21.1 - Atrial septal defect Status: Acute (2) CVA (cerebral vascular accident) Code(s): I63.9 - Cerebral infarction, unspecified Status: Acute - Plan //TIA with history of CVA - s/p loop recorder placement and PFO closure-will add statin- will likely discharge on Plavix- neurology and cardiology following. = Status post PFO repair. Discussed with cardiology. Discharge home on aspirin , Plavix. Follow-up with cardiology as outpatient. Follow-up with neurology as outpatient. 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 Follow-up with cardiology and neurology as outpatient.
--- NOTE | 2018-04-02 13:32 | P.DS ---
Date of admission: 03/29/18 11:29 Primary care physician: Lily Carpio Brief History from admission: Mr. Spencer is a pleasant 58 year old male with a history of fall from ladder and right MCA ischemic stroke (12/2017), seizure disorder who presents to the emergency department due to top of the head headache, vertigo-like symptoms as well as expressive aphasia that started around 4 AM on 03/28/2018. He denies any chest pain, shortness of breath, cough, abdominal pain, fever or chills. He denies any changes in bowel or bladder habits. ED workup including CT head as well as MRI of the brain did not show any evidence of acute stroke. Neurology was consulted for further evaluation. Past medical history: Hypertension, previous stroke, seizure disorder Past surgical history: Knee surgeries, sinus surgeries and hand surgeries Social history: Smokes about 6 cigarettes a day. Denies using tobacco or illicit drugs. Family history: Mother from heart disease at age 41 and father from heart attack at age 73. DS: Diagnosis - Discharge Diagnosis (1) PFO (patent foramen ovale) Status: Acute (2) CVA (cerebral vascular accident) Status: Acute DS: Medications - Discharge Medications Prescriptions: aspirin 81 mg PO DAILY 30 Days #30 tab clopidogrel [Plavix] 75 mg PO DAILY 30 Days #30 tab DS: Summary Hospital Course: Patient symptoms of unilateral weakness resolved. Patient underwent imaging which shows no acute stroke. Patient was found to have patent foramen ovale on echocardiogram. Cardiology was consulted and patient underwent PFO closure. Please see report. Patient was started on aspirin, Plavix as per neurology. If it recorder was also placed. Patient will follow up with cardiology and neurology as outpatient. For problem-based summary from most recent progress note, please see below. //TIA with history of CVA - s/p loop recorder placement and PFO closure-will add statin- will likely discharge on Plavix- neurology and cardiology following. = Status post PFO repair. Discussed with cardiology. Discharge home on aspirin , Plavix. Follow-up with cardiology as outpatient. Follow-up with neurology as outpatient. //SEIZURE disorder on Keppra , stable //HTN controlled //dvt prophylaxis sq heparin Discussed Condition With: Patient, nurse, sweat band sewer Discharge Planning: Discharge home. Follow-up with cardiology and neurology as outpatient. - Time Spent with Patient Total time spent providing and/or coordinating discharge services: Greater than 30 minutes - Quality: VTE Deep Vein Thrombosis/Pulmonary Embolism Present on Admission: No Exam Vital signs: Vital Signs 04/01/18 14:00 04/01/18 14:16 04/01/18 14:50 Temperature Pulse Rate 62 Respiratory Rate 18 18 Blood Pressure Pulse Oximetry 04/01/18 15:02 04/01/18 16:00 04/01/18 17:00 Temperature Pulse Rate 66 64 54 L Respiratory Rate 20 Blood Pressure 112/79 Pulse Oximetry 98 04/01/18 17:57 04/01/18 18:45 04/01/18 19:00 Temperature Pulse Rate 54 L 54 L Respiratory Rate 20 Blood Pressure Pulse Oximetry 04/01/18 20:00 04/01/18 21:00 04/01/18 22:00 Temperature 97.7 F Pulse Rate 58 L 54 L 54 L Respiratory Rate 16 Blood Pressure 114/68 Pulse Oximetry 98 04/01/18 23:00 04/02/18 00:00 04/02/18 01:00 Temperature 97.5 F L Pulse Rate 54 L 48 L 54 L Respiratory Rate 16 Blood Pressure 106/69 Pulse Oximetry 96 04/02/18 02:00 04/02/18 03:00 04/02/18 04:00 Temperature 97.6 F Pulse Rate 52 L 51 L 50 L Respiratory Rate 16 Blood Pressure 109/72 Pulse Oximetry 96 04/02/18 05:00 04/02/18 06:00 04/02/18 07:00 Temperature Pulse Rate 52 L 51 L 52 L Respiratory Rate Blood Pressure Pulse Oximetry 04/02/18 08:00 04/02/18 08:17 04/02/18 09:00 Temperature 97.7 F Pulse Rate 56 L 78 Respiratory Rate 16 16 Blood Pressure 111/73 Pulse Oximetry 100 04/02/18 09:39 04/02/18 10:54 04/02/18 11:59 Temperature Pulse Rate 52 L 66 Respiratory Rate 16 Blood Pressure Pulse Oximetry 04/02/18 12:00 04/02/18 12:15 Temperature 97.8 F Pulse Rate 67 65 Respiratory Rate 16 Blood Pressure 103/71 Pulse Oximetry 98 Intake & Output 04/01/18 04/02/18 04/02/18 18:59 06:59 18:59 Intake Total 720 / 720 240 / 240 Output Total 600 / 600 Balance 120 / 120 240 / 240 Weight 88.5 kg Intake: Oral 720 / 720 240 / 240 Output: Urine 600 / 600 Other: # Voids 2 Date of Last Bowel Movement 03/29/18 Results Procedures completed during hospitalization: PFO closure. Loop recorder placement. Please see report Labs on day of discharge: Labs from last 24 hours 04/02/18 03/29/18 03/28/18 03:40 15:09 13:37 PT 10.7 INR 1.1 Factor VIII Activity 60 MTHFR Mutation Detect Prothrombin [id number] Mut - Impressions ITS Impressions Head CT 03/28/18 09:22 CONCLUSION: 1. No acute abnormality seen. . Head MRI 03/28/18 10:37 CONCLUSION: 1. No abnormal enhancement. The focal area of increased T2 signal on the diffusion-weighted sequence involving the superior left parietal lobe is felt to be artifact. No abnormal enhancement identified within the right temporal lobe. Venous Doppler Study 03/31/18 00:00 CONCLUSION: 1. The study is negative for bilateral lower extremity deep venous thrombosis. Discharge Plan - Discharge Disposition Patient Disposition: 01 Discharge Home - Discharge Condition Condition: Good - Discharge Order Discharge Orders: Discharge Order (Routine); Ordered 04/02/18 Ordered By: Rodney Gallegos - Discharge Details Anticipated Discharge Date: 04/02/18 - Physicians Team Primary Care Provider: Lily Carpio Attending Provider: Rodney Gallegos Other Providers: Usama Greer MD
--- NOTE | 2018-04-03 01:28 | P.PNCA ---
Subjective Interval history: No events overnight Feels well Medications and Allergies Allergies Allergy/AdvReac Type Severity Reaction Status Date / Time No Known Allergies Allergy Verified 03/28/18 09:12 Home Medications Medication Instructions Recorded Confirmed Type lisinopril 10 mg PO BID 11/19/17 03/28/18 History hydrocodone-acetaminophen [[place]] 1 tab PO Q6H PRN 01/25/18 03/28/18 History levetiracetam [Keppra] 500 mg PO BID 03/28/18 03/28/18 History Physical Exam Vital signs: Vital Signs 04/02/18 02:00 04/02/18 03:00 04/02/18 04:00 Temperature 97.6 F Pulse Rate 52 L 51 L 50 L Respiratory Rate 16 Blood Pressure 109/72 Pulse Oximetry 96 04/02/18 05:00 04/02/18 06:00 04/02/18 07:00 Temperature Pulse Rate 52 L 51 L 52 L Respiratory Rate Blood Pressure Pulse Oximetry 04/02/18 08:00 04/02/18 08:17 04/02/18 09:00 Temperature 97.7 F Pulse Rate 56 L 78 Respiratory Rate 16 16 Blood Pressure 111/73 Pulse Oximetry 100 04/02/18 09:39 04/02/18 10:54 04/02/18 11:59 Temperature Pulse Rate 52 L 66 Respiratory Rate 16 Blood Pressure Pulse Oximetry 04/02/18 12:00 04/02/18 12:15 Temperature 97.8 F Pulse Rate 67 65 Respiratory Rate 16 Blood Pressure 103/71 Pulse Oximetry 98 Intake & Output 04/02/18 04/02/18 04/03/18 06:59 18:59 06:59 Intake Total 240 / 240 Balance 240 / 240 Weight 88.5 kg Intake: Oral 240 / 240 Other: # Voids 2 Narrative: GENERAL: Patient lying in bed. Appears comfortable. SKIN: Warm and dry. HEAD: Normocephalic. EYES: No scleral icterus. No injection or drainage. NECK: Supple, trachea midline. No JVD. CARDIOVASCULAR: Regular rate and rhythm without murmurs, gallops, or rubs. RESPIRATORY: Breath sounds equal bilaterally. No accessory muscle use. GASTROINTESTINAL: Abdomen soft, non-tender, nondistended. MUSCULOSKELETAL: No cyanosis, or edema. Right femoral no hematoma, neurovascularly intact BACK: Nontender without obvious deformity. No CVA tenderness. Results 03/30/18 08:54 03/30/18 08:54 Coagulation 04/01/18 04/02/18 Range/Units 04:32 03:40 PT 11.4 10.7 (9.8-11.6) sec Assessment and Plan - Assessment (1) PFO (patent foramen ovale) Code(s): Q21.1 - Atrial septal defect Status: Acute Plan: seen by loop, given multiple cva, feel anticoagulation reasonable (2) CVA (cerebral vascular accident) Code(s): I63.9 - Cerebral infarction, unspecified Status: Acute Plan: pfo seen by machelle; pt declines loop, probably will require anticoagulation. - Plan 1) TIA with a history of CVA Loop recorder placed 2) PFO Endovascular closure with a [place] 25mm PFO Occluder Will need to be on Plavix for at least 6 months after closure, but most likely continue indefinitely with CVA/TIA If found to have AFib, then would change Plavix to oral anticoagulant ASA 81mg daily Echo showing PFO occluder in place, no flow noted 3) No plan for anticoagulation No documented AFib If Afib on loop recorder, then would start anticoagulation, none for now Plan for Plavix with PFO closure 4) Cardiovascularly stable for discharge
== END 2018-04-02 13:53 | disposition home or self-care (01) ==
LOC: NEDA 08:53 → NEPC 08:53 → NEPFCDU 16:35 → N04 03-30 21:26 → HCIS 04-01 10:04
PROVIDERS: ADMIT Internal Medicine; ATTEND Internal Medicine
DX: Z79.82 Long term (current) use of aspirin; Z79.899 Other long term (current) drug therapy; R47.01 Aphasia; G40.909 Epilepsy, unspecified, not intractable, without status epilepticus; Z86.73 Personal history of transient ischemic attack (TIA), and cerebral infarction without residual deficits; F41.9 Anxiety disorder, unspecified; G89.29 Other chronic pain; Z82.49 Family history of ischemic heart disease and other diseases of the circulatory system; M06.9 Rheumatoid arthritis, unspecified; Q21.1 Atrial septal defect; I10 Essential (primary) hypertension; I63.9 Cerebral infarction, unspecified; F17.210 Nicotine dependence, cigarettes, uncomplicated

== ENCOUNTER 2018-06-03 11:14 | Observation (INO) ==
[2018-06-03] MEDS ORDERED: Morphine Inj 4 MG/ML Vial IV.PUSH ONE (12:35)
--- NOTE | 2018-06-03 12:50 | ED ---
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 He states he feels like he is getting shocked by it. The pain is currently 7/10, increases with palpation and movement to 10/10. Patient had a PFO repair on March 28 and had the loop recorder placed on 03/[address] Greer and Dr. Stewart. He states he went to their office today and was referred to the emergency department by Dr. Greer. Patient states the pain started yesterday while working with his left arm. Patient has history of PFO repair, seizures, CVA, A- fib on Eliquis. He states he takes hydrocodone for pain, but threw it up this morning. Moderate severity. Onset (ago): day(s) (1) Location: chest Radiation: non-radiation Severity: moderate Severity scale (1-10): 7 Quality: sharp (sharp and shocking) Pain Consistency: constant Relieving factors: immobilization Exacerbating factors: movement (movement and palpation) Associated symptoms: Denies confusion, cough, diaphoresis, fever/chills, headaches, loss of appetite, malaise, nausea/vomiting, rash, seizure, shortness of breath, syncope and weakness Related Data Home Medications Medication Instructions Recorded Confirmed lisinopril 10 mg PO DAILY 11/19/17 06/03/18 hydrocodone-acetaminophen [[place]] 1 tab PO Q6H PRN 01/25/18 06/03/18 Previous Rx's Medication Instructions Recorded carisoprodol [[place]] 350 mg PO BID #14 tab 01/25/18 apixaban [Eliquis] 5 mg PO BID #60 tab 04/20/18 Allergies Allergy/AdvReac Type Severity Reaction Status Date / Time No Known Allergies Allergy Verified 06/03/18 12:57 Review of Systems ROS: all other systems reviewed are negative [facility] Medical History Medical History Bacteremia (Acute) Chronic back pain (Acute) Psoriasis (Acute) Seizures (Acute) Status post placement of implantable loop recorder (Acute) HTN (hypertension) (Chronic) Rheumatoid arthritis (Chronic) Surgical History Surgical History History of hand surgery (Acute) History of sinus surgery (Acute) Hx of knee surgery (Acute) Family History Family History Mother CAD (coronary artery disease) Father CAD (coronary artery disease) Social History Social History Substance History: No History of Abuse Second Hand Smoke Exposure: Yes Smoking Status: Current every day smoker Tobacco Type: Cigarettes How Often Do You Have a Drink Containing Alcohol: Never Recent Travel in [facility] within the Last 8 Weeks: No Recent Out of Country Travel within the Last 8 Weeks: No Exam Narrative Exam Narrative: GENERAL: Well-nourished, well-developed male patient, ambulatory and in no acute distress. Afebrile. SKIN: Warm and dry. Patient has severe pain even with mild palpation over the loop recorder HEAD: Normocephalic. Atraumatic. EYES: No scleral icterus. No injection or drainage. PERRLA. EOM intact. NECK: Supple, trachea midline. No JVD or lymphadenopathy. CARDIOVASCULAR: Regular rate and rhythm without murmurs, gallops, or rubs. RESPIRATORY: Breath sounds equal bilaterally. No accessory muscle use. Lungs sounds clear to auscultation throughout. GASTROINTESTINAL: Abdomen soft, non-tender, nondistended. MUSCULOSKELETAL: No cyanosis, or edema. Pain is reproduced with movement of the left arm BACK: Nontender without obvious deformity. No CVA tenderness. Course Initial Documented Vital Signs Temperature 98.4 F 06/03/18 11:17 Pulse Rate 101 H 06/03/18 11:17 Respiratory Rate 20 06/03/18 11:17 Blood Pressure 112/72 06/03/18 11:17 Pulse Oximetry 99 06/03/18 11:17 Last Documented Vital Signs Temperature 97.0 F L 06/04/18 08:00 Pulse Rate 51 L 06/04/18 08:00 Respiratory Rate 18 06/04/18 08:00 Blood Pressure 103/58 L 06/04/18 08:00 Pulse Oximetry 100 06/04/18 08:00 Medical Decision Making MDM Narrative Medical decision making narrative: 58 year old male presents to the emergency department for evaluation of pain over his loop recorder. Patient states it is sharp and feels like he is getting shocked. He appears to be in significant pain. IV access is obtained. EKG shows SR, HR 87, no acute ST changes. CBC, CMP, CK, Troponin, PTT, PT/INR, chest x-ray are ordered and pending. Call is placed to senior applications developer. CBC shows leukocytosis of 13.9. CMP is unremarkable. CK is 59. Troponin is less than 0.02. PTT is 28.5. PT/INR is 10.8/1.1. Chest x-ray shows No acute cardiopulmonary disease. Patient still appears to be in significant amount of pain. I spoke to Dr. Stewart, senior applications developer, who states patient can be admitted and he will see him. The patient wants the loop recorder removed. Dr. Stewart called back and stated his plan will be for him to remove the loop recorder tomorrow. Hospitalist is paged for admission. Medical Screen Exam Complete: Yes Emergency Medical Condition: Yes Differential Diagnosis Differential Diagnosis: loop recorder malfunction vs. ACS vs. pneumonia vs. pneumothorax Medical Records Medical records reviewed: Yes I reviewed the patient's medical records. Lab Data Result diagrams: 06/04/18 06:24 06/04/18 06:25 Lab Results 06/03/18 06/03/18 06/03/18 Range/Units 12:43 12:43 12:43 WBC 13.9 H (4.0-11.0) th/mm3 RBC 5.36 (4.50-5.90) mil/mm3 Hgb 15.9 (13.0-17.0) gm/dL Hct 45.7 (39.0-51.0) % MCV 85.3 (80.0-100.0) fL MCH 29.6 (27.0-34.0) pg MCHC 34.7 (32.0-36.0) % RDW 13.5 (11.6-17.2) % Plt Count 345 (150-450) th/mm3 MPV 10.1 (7.0-11.0) fL Neut % (Auto) 73.3 H (16.0-70.0) % Lymph % (Auto) 20.7 (9.0-44.0) % [place] % (Auto) 4.6 (0.0-8.0) % Eos % (Auto) 0.7 (0.0-4.0) % Baso % (Auto) 0.7 (0.0-2.0) % Neut # (Auto) 10.2 H (1.8-7.7) th/mm3 Lymph # (Auto) 2.9 (1.0-4.8) th/mm3 [place] # (Auto) 0.6 (0.0-0.9) th/mm3 Eos # (Auto) 0.1 (0.0-0.4) th/mm3 Baso # (Auto) 0.1 (0.0-0.2) th/mm3 WBC Differential . Differential Comment Auto diff final PT (9.8-11.6) sec INR Ratio APTT (23.4-31.7) sec Sodium 136 (136-145) meq/L Potassium 4.3 (3.5-5.1) meq/L Chloride 104 (98-107) meq/L Carbon Dioxide 24.1 (21.0-32.0) meq/L Anion Gap 8 (5-15) meq/L BUN 17 (7-18) mg/dL Creatinine 1.11 (0.60-1.30) mg/dL Estimated GFR 68 L (>89) mL/min Random Glucose 89 (74-106) mg/dL Calcium 9.0 (8.5-10.1) mg/dL Total Bilirubin 0.7 (0.2-1.0) mg/dL AST 8 L (15-37) U/L ALT 20 (12-78) U/L Alkaline Phosphatase 58 (45-117) U/L Total Creatine Kinase 59 Cancelled (39-308) U/L Troponin I Less than 0.02 L (0.02-0.05) ng/mL Total Protein 8.2 (6.4-8.2) g/dL Albumin 4.5 (3.4-5.0) g/dL 06/03/18 06/03/18 06/04/18 Range/Units 13:08 16:51 06:24 WBC 8.3 (4.0-11.0) th/mm3 RBC 4.58 (4.50-5.90) mil/mm3 Hgb 13.4 D (13.0-17.0) gm/dL Hct 38.8 L (39.0-51.0) % MCV 84.8 (80.0-100.0) fL MCH 29.3 (27.0-34.0) pg MCHC 34.5 (32.0-36.0) % RDW 13.6 (11.6-17.2) % Plt Count 245 (150-450) th/mm3 MPV 9.9 (7.0-11.0) fL Neut % (Auto) 60.9 (16.0-70.0) % Lymph % (Auto) 30.1 (9.0-44.0) % [place] % (Auto) 6.0 (0.0-8.0) % Eos % (Auto) 1.9 (0.0-4.0) % Baso % (Auto) 1.1 (0.0-2.0) % Neut # (Auto) 5.0 (1.8-7.7) th/mm3 Lymph # (Auto) 2.5 (1.0-4.8) th/mm3 [place] # (Auto) 0.5 (0.0-0.9) th/mm3 Eos # (Auto) 0.2 (0.0-0.4) th/mm3 Baso # (Auto) 0.1 (0.0-0.2) th/mm3 WBC Differential . Differential Comment Auto diff final PT 10.8 (9.8-11.6) sec INR 1.1 Ratio APTT 28.5 (23.4-31.7) sec Sodium (136-145) meq/L Potassium (3.5-5.1) meq/L Chloride (98-107) meq/L Carbon Dioxide (21.0-32.0) meq/L Anion Gap (5-15) meq/L BUN (7-18) mg/dL Creatinine (0.60-1.30) mg/dL Estimated GFR (>89) mL/min Random Glucose (74-106) mg/dL Calcium (8.5-10.1) mg/dL Total Bilirubin (0.2-1.0) mg/dL AST (15-37) U/L ALT (12-78) U/L Alkaline Phosphatase (45-117) U/L Total Creatine Kinase 50 (39-308) U/L Troponin I Less than 0.02 L (0.02-0.05) ng/mL Total Protein (6.4-8.2) g/dL Albumin (3.4-5.0) g/dL 06/04/18 06/04/18 Range/Units 06:25 06:25 WBC (4.0-11.0) th/mm3 RBC (4.50-5.90) mil/mm3 Hgb (13.0-17.0) gm/dL Hct (39.0-51.0) % MCV (80.0-100.0) fL MCH (27.0-34.0) pg MCHC (32.0-36.0) % RDW (11.6-17.2) % Plt Count (150-450) th/mm3 MPV (7.0-11.0) fL Neut % (Auto) (16.0-70.0) % Lymph % (Auto) (9.0-44.0) % [place] % (Auto) (0.0-8.0) % Eos % (Auto) (0.0-4.0) % Baso % (Auto) (0.0-2.0) % Neut # (Auto) (1.8-7.7) th/mm3 Lymph # (Auto) (1.0-4.8) th/mm3 [place] # (Auto) (0.0-0.9) th/mm3 Eos # (Auto) (0.0-0.4) th/mm3 Baso # (Auto) (0.0-0.2) th/mm3 WBC Differential Differential Comment PT 10.2 (9.8-11.6) sec INR 1.0 Ratio APTT (23.4-31.7) sec Sodium 138 (136-145) meq/L Potassium 4.7 (3.5-5.1) meq/L Chloride 103 (98-107) meq/L Carbon Dioxide 27.6 (21.0-32.0) meq/L Anion Gap 7 (5-15) meq/L BUN 16 (7-18) mg/dL Creatinine 1.00 (0.60-1.30) mg/dL Estimated GFR 77 L (>89) mL/min Random Glucose 71 L (74-106) mg/dL Calcium 8.5 (8.5-10.1) mg/dL Total Bilirubin 0.5 (0.2-1.0) mg/dL AST 17 (15-37) U/L ALT 14 (12-78) U/L Alkaline Phosphatase 49 (45-117) U/L Total Creatine Kinase (39-308) U/L Troponin I (0.02-0.05) ng/mL Total Protein 6.7 D (6.4-8.2) g/dL Albumin 3.6 D (3.4-5.0) g/dL Imaging Data Radiologist's impression: Chest X-Ray 06/03/18 12:35 CONCLUSION: No acute cardiopulmonary disease. Discharge Plan Discharge Disposition Patient Disposition: ED Admit(ED Internal Use Only) Discharge Order Discharge Orders: ED Use Only Admit Order (Routine); Ordered 06/03/18 Ordered By: Ruthie Tucker Discharge Details Diagnosis: Encounter for loop recorder check, Chest pain Physicians Team ED Provider: Daxa Aguilar ED Midlevel Provider: Ruthie Tucker Primary Care Provider: Lily Carpio Attending Provider: Mayank Pena Status ED Status: Left Department Discharge Information Discharge Date/Time: 06/03/18 15:46
--- NOTE | 2018-06-03 12:55 | XR ---
EXAM DATE: 06/03/2018 12:51 PM EST AGE/SEX: 58 years / Male INDICATIONS: Chest pain in area around loop recorder. CLINICAL DATA: This is the patient's initial encounter. Patient reports that signs and symptoms have been present for 1 day and indicates a pain score of 6/10. MEDICAL/SURGICAL HISTORY: . Hypertension. Rheumatoid arthritis. Seizures. Psoriasis. Chronic ba ck pain. Bacteremia. TIA/ CVA. . Bilateral knee arthroscopy. Sinus surgery. Hand surgery. Loop recor junaid. COMPARISON: [facility] [place], CHEST 2V PA&LAT, 04/20/2018. . FINDINGS: A single AP view of the chest demonstrates the lungs to be symmetrically aerated without evidence of mass, infiltrate or effusion. The cardiomediastinal contours are unremarkable. Osseous structures a re intact. CONCLUSION: No acute cardiopulmonary disease. Electronically signed by: Rodolfo Cordova MD Board Certified Radiologist 06/03/2018 12:54 PM EST
[2018-06-03 12:59] LABS: Baso # (Auto) 0.1 th/mm3 (0.0-0.2); Baso % (Auto) 0.7 % (0.0-2.0); Eos # (Auto) 0.1 th/mm3 (0.0-0.4); Eos % (Auto) 0.7 % (0.0-4.0); Hematocrit 45.7 % (39.0-51.0); Hemoglobin 15.9 gm/dL (13.0-17.0); Lymph # (Auto) 2.9 th/mm3 (1.0-4.8); Lymph % (Auto) 20.7 % (9.0-44.0); Mean Corpuscular HGB Conc 34.7 % (32.0-36.0); Mean Corpuscular Hemoglobin 29.6 pg (27.0-34.0); Mean Corpuscular Volume 85.3 fL (80.0-100.0); Mean Platelet Volume 10.1 fL (7.0-11.0); Mono # (Auto) 0.6 th/mm3 (0.0-0.9); Mono % (Auto) 4.6 % (0.0-8.0); Neut # (Auto) 10.2 th/mm3 (1.8-7.7); Neut % (Auto) 73.3 % (16.0-70.0); Platelet Count 345 th/mm3 (150-450); Red Blood Count 5.36 mil/mm3 (4.50-5.90); Red Cell Distribution Width 13.5 % (11.6-17.2); White Blood Count 13.9 th/mm3 (4.0-11.0)
[2018-06-03] MEDS ORDERED: Pantoprazole Inj 40 MG Vial IV.PUSH ONE (12:59)
[2018-06-03 13:11] LABS: Alanine Aminotransferase 20 U/L (12-78); Albumin 4.5 g/dL (3.4-5.0); Anion Gap 8 meq/L (5-15); Aspartate Aminotransferase 8 U/L (15-37); Blood Urea Nitrogen 17 mg/dL (7-18); Carbon Dioxide 24.1 meq/L (21.0-32.0); Chloride 104 meq/L (98-107); Glomerular Filtration Rate 68 mL/min (>89); Glucose,Random 89 mg/dL (74-106); Potassium 4.3 meq/L (3.5-5.1); Sodium 136 meq/L (136-145)
--- NOTE | 2018-06-03 13:14 | ECG ---
Date Performed: 06/03/2018 Time Performed: 11:40:18 PTAGE: 58 years EKG: Sinus rhythm BORDERLINE RIGHT AXIS DEVIATION BORDERLINE ECG NO PREVIOUS TRACING DOCTOR: Isai Latif Interpretating Date/Time 06/03/2018 13:13:22
[2018-06-03 13:15] LABS: Alkaline Phosphatase 58 U/L (45-117); Total Protein 8.2 g/dL (6.4-8.2)
[2018-06-03 13:18] LABS: Creatine Kinase 59 U/L (39-308)
[2018-06-03 13:32] LABS: Activated Partial Thrombo Time 28.5 sec (23.4-31.7); INR 1.1 Ratio; Prothrombin Time 10.8 sec (9.8-11.6)
--- NOTE | 2018-06-03 14:52 | P.HPFP ---
History of Present Illness Primary Care Physician: Lily Carpio <Mayank Pena - 06/04/18 15:18> Lily Carpio <Rosemarie Schuler 06/03/18 14:52> Chief Complaint: sharp, intermittent "shocking" chest pain <Rosemarie Schuler 06/03/18 14:52> History of Present Illness: 58 M with history of PFO repair in March 2018 with loop recorder placement, hypertension and chronic back and knee pain presents to the hospital for intermittent, sharp left-sided chest pain that started yesterday. Patient goes the pain as a "ice pick stabbing me in the chest" occurring approximately every 5-7 minutes at rest. He states that sometimes it feels like shocks because tingling that radiates down the front of his body from his stomach down to his legs. He states that these sharp stabbing pains occur more frequently with movement of the chest wall, or left arm. He denies any recent trauma to the area or pulling a muscle. No rash, or history of shingles. Denies shortness of breath, headache, abdominal pain, numbness or weakness. He states that sometimes he experiences palpitations, where it feels like his heart is beating out of his chest, with associated lightheaded dizziness. He becomes mildly nauseated during these episodes. He also admits to a 1 month history of increasing acid reflux, sometimes associated with nausea and vomiting. Past medical history: Hypertension PFO Currently being worked up for arrhythmia Chronic back pain and knee pain Social history: Smokes 5 cigarettes a day. Prior to surgery March, patient was smoking 1 pack/day for the past 40 years. Denies EtOH use. He notes that he has been sober for 1 year. He used to drink beer occasionally. Denies illicit drug use. PCP: [facility] <Saniyabaltazar Rosemarie San 06/04/18 01:41> - Diagnosis (1) Chest pain (2) HTN (hypertension) (3) Chronic back pain (4) Nutrition, metabolism, and development symptoms (5) DVT prophylaxis <Mayank Pena 06/04/18 15:18> (1) Chest pain (2) HTN (hypertension) (3) Chronic back pain (4) Nutrition, metabolism, and development symptoms (5) DVT prophylaxis <[address] 06/04/18 01:43> Review of Systems Constitutional: Denies chills, Denies fever(s), Denies headache(s), Denies weakness <[address] 06/03/18 14:52> Eyes: Denies change in vision <[address] 06/03/18 14:52> Ears, Nose, Mouth, and Throat: Denies nasal congestion, Denies nasal discharge, Denies ringing in the ears, Denies sinus pain, Denies sore throat <[address] 06/03/18 14:52> Cardiovascular: Reports chest pain (sharp stabbin pain), Reports rapid, pounding , or irregular heartbeat (intermittent) <[address] 06/03/18 14:52> Respiratory: Denies cough, Denies shortness of breath <[address] 14:52> Gastrointestinal: Reports abdominal pain, Reports nausea, Reports vomiting < [address] 06/03/18 14:52> Genitourinary: Denies blood in urine, Denies painful urination <[address] 06/03/18 14:52> Musculoskeletal: Reports back pain (chronic), Reports muscle cramps (chronic ) <[address] 06/03/18 14:52> Neurologic: Denies abnormal movements, Denies abnormal speech, Denies numbness, Denies weakness <[address] 06/03/18 14:52> [facility] - History History Provided By: Patient <[place] [id number] 06/03/18 14:52> - Medical History Medical History: Medical History (Last Reviewed 06/03/18 @ 14:49 by Rosemarie San DO, R1) Bacteremia Chronic back pain Psoriasis Seizures Status post placement of implantable loop recorder HTN (hypertension) Rheumatoid arthritis <Mayank Pena - 06/04/18 15:18> Medical History (Last Reviewed 06/03/18 @ 14:49 by Rosemarie San DO, R1) Bacteremia Chronic back pain Psoriasis Seizures Status post placement of implantable loop recorder HTN (hypertension) Rheumatoid arthritis <Sung R1Rosemarie 06/03/18 14:52> - Surgical History Surgical History: Surgical History (Last Reviewed 06/03/18 @ 14:49 by Rosemarie San DO R1) History of hand surgery History of sinus surgery Hx of knee surgery <Mayank Pena 06/04/18 15:18> Surgical History (Last Reviewed 06/03/18 @ 14:49 by Rosemarie San DO R1) History of hand surgery History of sinus surgery Hx of knee surgery <Harshad SanRosemarie B 06/03/18 14:52> - Family History Family History: Family History (Last Reviewed 06/03/18 @ 14:49 by Rosemarie San DO R1) Mother CAD (coronary artery disease) Father CAD (coronary artery disease) <Mayank Pena 06/04/18 15:18> Family History (Last Reviewed 06/03/18 @ 14:49 by Rosemarie San DO R1) Mother CAD (coronary artery disease) Father CAD (coronary artery disease) <Harshad SanRosemarie Rain 06/03/18 14:52> - Tobacco History Second Hand Smoke Exposure: Yes <Saniya JaswinderRosemarie Rodrigez 06/03/18 14:52> Tobacco Use In Past 30 Days: Yes <Harshad SanRosemarie Rodrigez 06/03/18 14:52> Smoking Status: Current every day smoker <[facility] JaswinderRosemarie Rodrigez 06/03/18 14:52> Tobacco Type: Cigarettes <Saniya JaswinderRosemarie B 06/03/18 14:52> - Alcohol History How Often Do You Have a Drink Containing Alcohol: Never <Saniya JaswinderRosemarie Rodrigez 06/03/18 14:52> - Substance Use History Substance History: No History of Abuse <Harshad SanRosemarie B 06/03/18 14:52> - Immunization History Tetanus Immunization: <5 Years <Harshad SanRosemarie Rain 06/03/18 14:52> Medications and Allergies Allergies Allergy/AdvReac Type Severity Reaction Status Date / Time No Known Allergies Allergy Verified 06/03/18 12:57 <Mayank Pena 06/04/18 15:18> Home Medications Medication Instructions Recorded Confirmed Type lisinopril 10 mg PO DAILY 11/19/17 06/03/18 History hydrocodone-acetaminophen [[place]ing] 1 tab PO Q6H PRN 01/25/18 06/03/18 History <Mayank Pena - 06/04/18 15:18> Active Medications: Active Medications Acetaminophen (Tylenol) 650 mg PO Q4H PRN PRN Reason: Temp > 100.4 Hydrocodone Bitart/Acetaminophen ([place] 10/325) 1 tab PO Q6H PRN PRN Reason: Pain, Moderate 1-5 Last Admin: 06/04/18 13:44 Dose: 1 tab Carisoprodol (Soma) 350 mg PO BID [facility] Last Admin: 06/04/18 08:07 Dose: 350 mg Chlorhexidine Gluconate (Chlorhexidine 2% Cloth) 3 pack [employer]ER ASSISTANT [facility] Stop: 06/07/18 10:40 Gabapentin (Neurontin) 100 mg PO TID [facility] Last Admin: 06/04/18 13:44 Dose: 100 mg Sodium Chloride (Ns Inj) 1,000 mls @ 30 mls/hr IV.SIG .Q24H [facility] Lisinopril (Prinivil) 10 mg PO DAILY [facility] Mupirocin (Bactroban 2% Nasal Oint) 1 applicatio EACH [employer] ASSISTANT [facility] Stop: 06/07/18 10:40 Ondansetron HCl (Zofran Inj) 4 mg IV.PUSH Q6H PRN PRN Reason: NAUSEA OR VOMITING Last Admin: 06/04/18 08:08 Dose: 4 mg Povidone Iodine (Betadine 5% Antisepsis Kit) 1 applicatio EACH N[employer] ASSISTANT [facility] Stop: 06/07/18 10:40 Senna/Docusate Sodium (Juliana-Colace) 1 tab PO BID PRN PRN Reason: CONSTIPATION Sodium Chloride (Ns Flush) 2 ml IV.FLUSH PRN PRN PRN Reason: FLUSH AFTER USING IV ACCESS Sodium Chloride (Ns Flush) 2 ml IV.FLUSH BID [facility] Last Admin: 06/04/18 08:08 Dose: 2 ml <Mayank Pena - 06/04/18 15:18> Active Medications Sodium Chloride (Ns Flush) 2 ml IV.FLUSH UNSCH PRN PRN Reason: FLUSH AFTER USING IV ACCESS <Rosemarie Schuler - 06/03/18 14:52> Exam Vital signs: Vital Signs 06/03/18 16:00 06/03/18 20:00 06/03/18 20:48 Temperature 97.7 F Pulse Rate 64 Respiratory Rate 16 Blood Pressure 78/49 L 70/50 L Pulse Oximetry 97 98 06/03/18 23:01 06/04/18 00:00 06/04/18 04:00 Temperature 97.5 F L 97.8 F Pulse Rate 57 L 53 L 51 L Respiratory Rate 17 16 Blood Pressure 79/54 L 82/54 L Pulse Oximetry 99 100 06/04/18 08:00 06/04/18 12:00 Temperature 97.0 F L 97.9 F Pulse Rate 57 L 51 L Respiratory Rate 18 18 Blood Pressure 103/58 L 105/60 Pulse Oximetry 100 99 Intake & Output 06/03/18 06/04/18 06/04/18 18:59 06:59 18:59 Intake Total 1000 / 1000 Balance 1000 / 1000 Weight 86.183 kg Intake: IV 1000 / 1000 NS Inj 1,000 ML @ 1000 mls/hr 1000 / 1000 IV.SIG BOLUS [facility] Rx#:[id number] Other: # Voids 2 Weight On Admission 86.183 kg <Mayank Pena - 06/04/18 15:18> Vital Signs 06/03/18 11:17 06/03/18 12:55 06/03/18 13:43 Temperature 98.4 F Pulse Rate 101 H 76 64 Respiratory Rate 20 19 18 Blood Pressure 112/72 108/81 111/56 L Pulse Oximetry 99 96 98 Intake & Output 06/02/18 06/03/18 06/03/18 18:59 06:59 18:59 Weight 96.162 kg <Rosemarie Schuler - 06/03/18 14:52> Narrative: GENERAL: 58-year-old, well nourished, well developed M sitting up in bed eating lunch. In no acute distress. SKIN: Warm and dry. No rash. Small, well-healed scar at loop recorder incision site. HEAD: Atraumatic. Normocephalic. EYES: EMOI. PERRLA. No scleral icterus. No injection or drainage. ENT: No nasal bleeding or discharge. Mucous membranes pink and moist. Airway patent. Chest: Tender to palpation of fourth to fifth rib space and chest wall over loop recorder site. No obvious erythema, edema or drainage. CARDIOVASCULAR: Regular rate and rhythm. No murmur. RESPIRATORY: No accessory muscle use. Clear to auscultation with equal breath sounds. No crackles, wheeze, rales or rhonchi. GASTROINTESTINAL: Abdomen soft, non-tender, nondistended. Hepatic and splenic margins not palpable. MUSCULOSKELETAL: Extremities without clubbing, cyanosis, or edema. No obvious deformities. No calf tenderness. NEUROLOGICAL: Awake and alert. No obvious cranial nerve deficits. Motor grossly within normal limits. Five out of 5 muscle strength in the arms and legs. Normal speech. PSYCHIATRIC: Appropriate mood and affect; insight and judgment normal. <Rosemarie Schuler - 06/04/18 01:41> Results - Labs Result diagrams: 06/04/18 06:24 06/04/18 06:25 <Mayank Pena - 06/04/18 15:18> Abnormal lab results 06/03/18 06/04/18 06/04/18 Range/Units 16:51 06:24 06:25 Hct 38.8 L (39.0-51.0) % Estimated GFR 77 L (>89) mL/min Random Glucose 71 L (74-106) mg/dL Troponin I Less than 0.02 L (0.02-0.05) ng/mL Short CBC 06/04/18 Range/Units 06:24 WBC 8.3 (4.0-11.0) th/mm3 Hgb 13.4 D (13.0-17.0) gm/dL Hct 38.8 L (39.0-51.0) % Plt Count 245 (150-450) th/mm3 [facility] 06/04/18 06:25 Sodium 138 Potassium 4.7 Chloride 103 Carbon Dioxide 27.6 BUN 16 Creatinine 1.00 Calcium 8.5 Cardiac Enzymes 06/03/18 Range/Units 16:51 Total Creatine Kinase 50 (39-308) U/L Troponin I Less than 0.02 L (0.02-0.05) ng/mL Liver Function 06/04/18 Range/Units 06:25 Total Bilirubin 0.5 (0.2-1.0) mg/dL AST 17 (15-37) U/L ALT 14 (12-78) U/L Alkaline Phosphatase 49 (45-117) U/L Albumin 3.6 D (3.4-5.0) g/dL <Mayank Pena Gabriel - 06/04/18 15:18> Abnormal lab results 06/03/18 06/03/18 Range/Units 12:43 12:43 WBC 13.9 H (4.0-11.0) th/mm3 Neut % (Auto) 73.3 H (16.0-70.0) % Neut # (Auto) 10.2 H (1.8-7.7) th/mm3 Estimated GFR 68 L (>89) mL/min AST 8 L (15-37) U/L Troponin I Less than 0.02 L (0.02-0.05) ng/mL Short CBC 06/03/18 Range/Units 12:43 WBC 13.9 H (4.0-11.0) th/mm3 Hgb 15.9 (13.0-17.0) gm/dL Hct 45.7 (39.0-51.0) % Plt Count 345 (150-450) th/mm3 BMP 06/03/18 12:43 Sodium 136 Potassium 4.3 Chloride 104 Carbon Dioxide 24.1 BUN 17 Creatinine 1.11 Calcium 9.0 Cardiac Enzymes 06/03/18 06/03/18 Range/Units 12:43 12:43 Total Creatine Kinase 59 Cancelled (39-308) U/L Troponin I Less than 0.02 L (0.02-0.05) ng/mL Liver Function 06/03/18 Range/Units 12:43 Total Bilirubin 0.7 (0.2-1.0) mg/dL AST 8 L (15-37) U/L ALT 20 (12-78) U/L Alkaline Phosphatase 58 (45-117) U/L Albumin 4.5 (3.4-5.0) g/dL <Rosemarie Schuler - 06/03/18 14:52> - Imaging Impressions Chest X-Ray 06/03/18 12:35 CONCLUSION: No acute cardiopulmonary disease. <Rosemarie Schuler B 06/03/18 14:52> Caprini VTE Risk Assessment Caprini VTE Risk Assessment: Moderate/High Risk (score >= 2) <Rosemarie Schuler B 06/03/18 14:52> Caprini Risk Assessment Model: Point Value = 1 Point Value = 2 Point Value = 3 Point Value = 5 Age 41-60 Minor surgery BMI > 25 kg/m2 Swollen legs Varicose veins or History of unexplained or recurrent spontaneous Oral contraceptives or hormone replacement Sepsis (< 1 month) Serious lung disease, including pneumonia (< 1 month) Abnormal pulmonary function Acute myocardial infarction Congestive heart failure (< 1 month) History of inflammatory bowel disease Medical patient at bed rest Age 61-74 Arthroscopic surgery Major open surgery (> 45 min) Laparoscopic surgery (> 45 min) Malignancy Confined to bed (> 72 hours) Immobilizing plaster cast Central venous access Age >= 75 History of VTE Family history of VTE Factor V Leiden Prothrombin [id number] Lupus anticoagulant Anticardiolipin antibodies Elevated serum homocysteine Heparin-induced thrombocytopenia Other congenital or acquired thrombophilia Stroke (< 1 month) Elective arthroplasty Hip, pelvis, or leg fracture Acute spinal cord injury (< 1 month) <Mayank Pena - 06/04/18 15:18> Point Value = 1 Point Value = 2 Point Value = 3 Point Value = 5 Age 41-60 Minor surgery BMI > 25 kg/m2 Swollen legs Varicose veins or History of unexplained or recurrent spontaneous Oral contraceptives or hormone replacement Sepsis (< 1 month) Serious lung disease, including pneumonia (< 1 month) Abnormal pulmonary function Acute myocardial infarction Congestive heart failure (< 1 month) History of inflammatory bowel disease Medical patient at bed rest Age 61-74 Arthroscopic surgery Major open surgery (> 45 min) Laparoscopic surgery (> 45 min) Malignancy Confined to bed (> 72 hours) Immobilizing plaster cast Central venous access Age >= 75 History of VTE Family history of VTE Factor V Leiden Prothrombin [id number] Lupus anticoagulant Anticardiolipin antibodies Elevated serum homocysteine Heparin-induced thrombocytopenia Other congenital or acquired thrombophilia Stroke (< 1 month) Elective arthroplasty Hip, pelvis, or leg fracture Acute spinal cord injury (< 1 month) <Rosemarie Schuler - 06/03/18 14:52> Prophylaxis Regimen: Total Risk Factor Score Risk Level Prophylaxis Regimen 0-1 Low Early ambulation 2 Moderate Order ONE of the following: *Sequential Compression Device (SCD) *Heparin 5000 units SQ BID 3-4 Higher Order ONE of the following medications: *Heparin 5000 units SQ TID *Enoxaparin/Lovenox 40 mg SQ daily (WT < 150 kg, CrCl > 30 mL/min) *Enoxaparin/Lovenox 30 mg SQ daily (WT < 150 kg, CrCl > 10-29 mL/min) *Enoxaparin/Lovenox 30 mg SQ BID (WT < 150 kg, CrCl > 30 mL/min) AND/OR *Sequential Compression Device (SCD) 5 or more Highest Order ONE of the following medications: *Heparin 5000 units SQ TID (Preferred with Epidurals) *Enoxaparin/Lovenox 40 mg SQ daily (WT < 150 kg, CrCl > 30 mL/min) *Enoxaparin/Lovenox 30 mg SQ daily (WT < 150 kg, CrCl > 10-29 mL/min) *Enoxaparin/Lovenox 30 mg SQ BID (WT < 150 kg, CrCl > 30 mL/min) AND *Sequential Compression Device (SCD) <Mayank Pena - 06/04/18 15:18> Total Risk Factor Score Risk Level Prophylaxis Regimen 0-1 Low Early ambulation 2 Moderate Order ONE of the following: *Sequential Compression Device (SCD) *Heparin 5000 units SQ BID 3-4 Higher Order ONE of the following medications: *Heparin 5000 units SQ TID *Enoxaparin/Lovenox 40 mg SQ daily (WT < 150 kg, CrCl > 30 mL/min) *Enoxaparin/Lovenox 30 mg SQ daily (WT < 150 kg, CrCl > 10-29 mL/min) *Enoxaparin/Lovenox 30 mg SQ BID (WT < 150 kg, CrCl > 30 mL/min) AND/OR *Sequential Compression Device (SCD) 5 or more Highest Order ONE of the following medications: *Heparin 5000 units SQ TID (Preferred with Epidurals) *Enoxaparin/Lovenox 40 mg SQ daily (WT < 150 kg, CrCl > 30 mL/min) *Enoxaparin/Lovenox 30 mg SQ daily (WT < 150 kg, CrCl > 10-29 mL/min) *Enoxaparin/Lovenox 30 mg SQ BID (WT < 150 kg, CrCl > 30 mL/min) AND *Sequential Compression Device (SCD) <Rosemarie Schuler - 06/03/18 14:52> Assessment and Plan - Assessment (1) Chest pain Code(s): R07.9 - Chest pain, unspecified Status: Acute (2) HTN (hypertension) Code(s): I10 - Essential (primary) hypertension Status: Chronic (3) Chronic back pain Code(s): M54.9 - Dorsalgia, unspecified; G89.29 - Other chronic pain Status: Chronic (4) Nutrition, metabolism, and development symptoms Code(s): R63.8 - Other symptoms and signs concerning food and fluid intake Status: Acute (5) DVT prophylaxis Status: Acute <Mayank Pena - 06/04/18 15:18> (1) Chest pain Code(s): R07.9 - Chest pain, unspecified Status: Acute (2) HTN (hypertension) Code(s): I10 - Essential (primary) hypertension Status: Chronic (3) Chronic back pain Code(s): M54.9 - Dorsalgia, unspecified; G89.29 - Other chronic pain Status: Chronic (4) Nutrition, metabolism, and development symptoms Code(s): R63.8 - Other symptoms and signs concerning food and fluid intake Status: Acute (5) DVT prophylaxis Status: Acute <Rosemarie Schuler - 06/04/18 01:43> - Assessment and Plan Left-sided chest pain Loop recorder derangement vs. infection of prior surgical site vs. neuropathic pain vs. shingles prodrome Met SIRS criteria with tachycardia up to 101 bpm and WBC 13.9 on admission -CMP WNL -Troponin & CK WNL -Second set of troponin I, CKMB and EKG ordered -Continue cardiac telemetry -Lidocaine patch for local pain relief Consulted Cardiology, who placed the loop recorder in March of 2018, who will take the patient back to evaluate the loop recorder tomorrow morning. -NPO at midnight in preparation for procedure -Hold Eliquis Chronic back and knee pain, stable Patient's medications on E-force which showed abnormalities -Continue home medications, Gooding 10-325mg every 6 hours as needed and SOMA 350 mg BID Hx of HTN, stable on Lisinopril -Hold home medications FEN Fluids: Tolerating PO without issue. Electrolytes: No abnormalities noted. Continue to monitor and replete as needed. Diet: Regular diet. NPO at midnight in preparation for procedure. DVT prophylaxis -SCDs and compression hose dw Dr. Pena and Dr. Denson <Rosemarie Schuler - 06/04/18 01:41> - Attending Attestation The exam, history, and the medical decision-making described in the above note were completed with the assistance of the resident physician. I reviewed and agree with the findings presented. I attest that I had a [id number] encounter with the patient on the same day, and personally performed and documented my assessment and findings in the medical record. Saw patient on 06/03. was having electrical shocks very ttp over loop recorder then. agree with plan as above to be seen following day by dr petit to remove loop and d/c after if symptoms gone <Mayank Pena - 06/04/18 15:18> <Rosemarie Schuler - Last Filed: 06/04/18 01:43> (1) Chest pain Qualifiers: Chest pain type: unspecified Qualified Code(s): R07.9 - Chest pain, unspecified <Mayank Pena - Last Filed: 06/04/18 15:18> (1) Chest pain Qualifiers: Chest pain type: unspecified Qualified Code(s): R07.9 - Chest pain, unspecified (2) HTN (hypertension) Qualifiers: <Rosemarie Schuler B - Last Filed: 06/04/18 01:43> (1) Chest pain Qualifiers: Chest pain type: unspecified Qualified Code(s): R07.9 - Chest pain, unspecified <MarkMayank chase - Last Filed: 06/04/18 15:18> (1) Chest pain Qualifiers: Chest pain type: unspecified Qualified Code(s): R07.9 - Chest pain, unspecified (2) HTN (hypertension) Qualifiers:
[2018-06-03] MEDS ORDERED: Acetaminophen 325 MG Tablet PO PRN (15:15)
[2018-06-03] MEDS ORDERED: Senna/Docusate Sodium 8.6/50 MG Tablet PO PRN (15:17)
[2018-06-03] MEDS ORDERED: Lidocaine 5% Patch T-DERMAL ONE (16:02)
[2018-06-03 18:21] LABS: Creatine Kinase 50 U/L (39-308)
[2018-06-03] MEDS: Carisoprodol 350 MG Tablet PO SCH (20:58)
--- NOTE | 2018-06-03 21:10 | ECG ---
Date Performed: 06/03/2018 Time Performed: 17:38:04 PTAGE: 58 years EKG: SINUS BRADYCARDIA BORDERLINE ECG PREVIOUS TRACING : 06/03/2018 11.40 Compared to previous tracing, heart rate has slowed. DOCTOR: Isai Latif Interpretating Date/Time 06/03/2018 21:10:13
[2018-06-03] MEDS ORDERED: Sod Chloride 0.9% Inj 1,000 ML IV.SIG SCH (22:30)
[2018-06-04] MEDS ORDERED: Gabapentin 300 MG Capsule PO ONE (00:45)
--- NOTE | 2018-06-04 01:08 | MB ---
cc: Jurgen Stewart DO DATE: 06/03/2018 REASON FOR CONSULTATION: Shocking pain. HISTORY OF PRESENT ILLNESS: Ty Spencer is a pleasant 58-year-old male who sees my partner Dr. Greer in the office and presented to [facility] due to electric pain over his chest. This started the past few days while at rest. He gets a sharp, stabbing pain over the distal portion of his loop recorder that was placed in March. There has been no erythema or drainage from the site. It feels like he gets a stabbing or shocking pain really at this area. This radiates down his abdomen and into his legs. He feels like the loop recorder is shocking him. If he moves his chest wall or left arm, it hurts worse. In seeing him, he is currently hemodynamically stable without chest pain. Palpation of the anterior chest wall seems to bring on the pain. PAST MEDICAL HISTORY: 1. PFO. 2. Chronic back pain. 3. Psoriasis. 4. Seizures. 5. Hypertension. 6. Rheumatoid arthritis. 7. CVA. PAST SURGICAL HISTORY: 1. PFO closure (04/01/2018) with a [employer] Amplatzer 25 mm PFO occluder. 2. Placement of a [employer] LINQ loop recorder (model number [id number], serial number [id number], 03/31/2018). ALLERGIES: NO KNOWN DRUG ALLERGIES. MEDICATIONS: 1. Lisinopril 10 mg daily. 2. [place] 10/325 every 6 hours as needed. 3. Soma 350 mg b.i.d. 4. Eliquis 5 mg b.i.d. FAMILY HISTORY: Denies sudden cardiac within the family. SOCIAL HISTORY: The patient smokes 5 cigarettes a day. He previously drank heavily but is sober for 1 year. Denies drug abuse. REVIEW OF SYSTEMS: Fourteen systems were reviewed including osteopathic. Pertinent positives and negatives above, otherwise negative. PHYSICAL EXAMINATION: VITAL SIGNS: Temperature 97.7, heart rate 68, blood pressure 119/68, respirations 18, pulse oximetry 96% on room air. GENERAL: The patient appears well, no acute distress. Alert, awake and oriented x3. HEENT: Extraocular muscles intact. Mucous membranes moist. NECK: Supple. No JVD at 45 degrees. No carotid bruits heard bilaterally. Carotid upstroke is brisk in nature. HEART: Regular rate and rhythm. Positive first and second heart tones with no noted murmurs, gallops or rubs. Palpation of the anterior chest wall brings on significant pain to the patient, especially at the distal end of the loop recorder. LUNGS: Clear to auscultation bilaterally. No wheezes, rales or rhonchi. ABDOMEN: Soft, nontender, nondistended. No organomegaly noted. EXTREMITIES: No clubbing, cyanosis or edema. Femoral and distal pulses are intact bilaterally. NEUROLOGIC: No focal deficits. SKIN: Warm, dry and intact. OSTEOPATHIC: No kyphoscoliosis, lordosis or paraspinal tender points. LABORATORY DATA: Hemoglobin 15.9, hematocrit 45.7, platelets 345. Potassium 4.3, BUN 17, creatinine 1.11. Troponin negative x2. Electrocardiogram (06/03/2018 at 1738): Sinus bradycardia. IMPRESSIONS: 1. Significant pain with palpation of distal portion of the loop recorder. 2. History of patent foramen ovale, status post closure. 3. Atrial fibrillation with cerebrovascular disease, status post loop recorder placement. 4. Tobacco abuse. RECOMMENDATIONS: 1. Mr. Spencer appears to have significant pain with palpation of the distal portion of his loop recorder. This brings on a shocking pain throughout his body. 2. Possibility of irritating a nerve. 3. Ultimately, he wants the loop recorder removed. He was found to have atrial fibrillation on the loop recorder, which would then be a cause for his cerebrovascular disease, and the information needed from the loop recorder is known. 4. We will plan on holding his Eliquis and removing the loop recorder tomorrow. 5. At this time, it does not appear to be infected. He has no fevers or chills, and the site appears well with no fluctuance, redness, or drainage. We will still plan on placing him on antibiotics post-procedure. 6. Afterwards, he will continue on Eliquis for his atrial fibrillation. 7. I spoke to him for greater than 3 minutes about tobacco cessation. Thank you for allowing me to see Ty Spencer. If there are any questions, please do not hesitate to call. DO RAS Abrams/rocio , 12:29 AM , 12:41 AM
[2018-06-04 07:52] LABS: Baso # (Auto) 0.1 th/mm3 (0.0-0.2); Baso % (Auto) 1.1 % (0.0-2.0); Eos # (Auto) 0.2 th/mm3 (0.0-0.4); Eos % (Auto) 1.9 % (0.0-4.0); Hematocrit 38.8 % (39.0-51.0); Hemoglobin 13.4 gm/dL (13.0-17.0); Lymph # (Auto) 2.5 th/mm3 (1.0-4.8); Lymph % (Auto) 30.1 % (9.0-44.0); Mean Corpuscular HGB Conc 34.5 % (32.0-36.0); Mean Corpuscular Hemoglobin 29.3 pg (27.0-34.0); Mean Corpuscular Volume 84.8 fL (80.0-100.0); Mean Platelet Volume 9.9 fL (7.0-11.0); Mono # (Auto) 0.5 th/mm3 (0.0-0.9); Neut % (Auto) 60.9 % (16.0-70.0); Platelet Count 245 th/mm3 (150-450); Red Blood Count 4.58 mil/mm3 (4.50-5.90); Red Cell Distribution Width 13.6 % (11.6-17.2); White Blood Count 8.3 th/mm3 (4.0-11.0)
[2018-06-04 07:59] LABS: Prothrombin Time 10.2 sec (9.8-11.6)
[2018-06-04] MEDS: Carisoprodol 350 MG Tablet PO SCH (08:07)
[2018-06-04] MEDS: Gabapentin 100 MG Capsule PO SCH ×2 (08:08→13:44)
[2018-06-04 08:11] VITALS: RESP 18
[2018-06-04 08:24] LABS: Alanine Aminotransferase 14 U/L (12-78); Albumin 3.6 g/dL (3.4-5.0); Anion Gap 7 meq/L (5-15); Aspartate Aminotransferase 17 U/L (15-37); Blood Urea Nitrogen 16 mg/dL (7-18); Calcium 8.5 mg/dL (8.5-10.1); Carbon Dioxide 27.6 meq/L (21.0-32.0); Chloride 103 meq/L (98-107); Glomerular Filtration Rate 77 mL/min (>89); Glucose,Random 71 mg/dL (74-106); Sodium 138 meq/L (136-145)
[2018-06-04 08:26] LABS: Alkaline Phosphatase 49 U/L (45-117); Total Protein 6.7 g/dL (6.4-8.2)
[2018-06-04 08:34] LABS: Potassium 4.7 meq/L (3.5-5.1)
[2018-06-04] MEDS ORDERED: Chlorhexidine Gluconate 2% 1 Pack (2 Cloths) TOPICAL SCH (10:45)
[2018-06-04] MEDS ORDERED: Mupirocin 2% Nasal Oint Topical Syringe EACH NARE SCH (10:45)
[2018-06-04] MEDS ORDERED: ceFAZolin 2 GM Premix Inj 2 GM/50 ML PIGGYBACK IV.SIG ONE (11:00)
[2018-06-04] MEDS ORDERED: Sod Chloride 0.9% Inj 1,000 ML IV.SIG SCH (11:00)
--- NOTE | 2018-06-04 11:24 | P.PNFP ---
Subjective Interval history: Patient was seen and evaluated this afternoon. Patient had loop recorder removed this morning by Dr. Stewart. Patient reports that shocking sensation/ shooting pain is gone. He has some post-surgical discomfort around the incision site. Patient denies chest pain, shortness of breath, nausea, vomiting. Patient eager to go home. All questions were answered. <Andrew JinJeetKrystle - 06/04/18 15:09> Results - Labs Result diagrams: 06/04/18 06:24 06/04/18 06:25 <Mayank Pena - 06/04/18 15:20> Abnormal lab results 06/03/18 06/04/18 06/04/18 Range/Units 16:51 06:24 06:25 Hct 38.8 L (39.0-51.0) % Estimated GFR 77 L (>89) mL/min Random Glucose 71 L (74-106) mg/dL Troponin I Less than 0.02 L (0.02-0.05) ng/mL Short CBC 06/04/18 Range/Units 06:24 WBC 8.3 (4.0-11.0) th/mm3 Hgb 13.4 D (13.0-17.0) gm/dL Hct 38.8 L (39.0-51.0) % Plt Count 245 (150-450) th/mm3 BMP 06/04/18 06:25 Sodium 138 Potassium 4.7 Chloride 103 Carbon Dioxide 27.6 BUN 16 Creatinine 1.00 Calcium 8.5 Cardiac Enzymes 06/03/18 Range/Units 16:51 Total Creatine Kinase 50 (39-308) U/L Troponin I Less than 0.02 L (0.02-0.05) ng/mL Liver Function 06/04/18 Range/Units 06:25 Total Bilirubin 0.5 (0.2-1.0) mg/dL AST 17 (15-37) U/L ALT 14 (12-78) U/L Alkaline Phosphatase 49 (45-117) U/L Albumin 3.6 D (3.4-5.0) g/dL <Mayank Pena - 06/04/18 15:20> Abnormal lab results 06/03/18 06/03/18 06/03/18 Range/Units 12:43 12:43 16:51 WBC 13.9 H (4.0-11.0) th/mm3 Hct (39.0-51.0) % Neut % (Auto) 73.3 H (16.0-70.0) % Neut # (Auto) 10.2 H (1.8-7.7) th/mm3 Estimated GFR 68 L (>89) mL/min Random Glucose (74-106) mg/dL AST 8 L (15-37) U/L Troponin I Less than 0.02 L Less than 0.02 L (0.02-0.05) ng/mL 06/04/18 06/04/18 Range/Units 06:24 06:25 WBC (4.0-11.0) th/mm3 Hct 38.8 L (39.0-51.0) % Neut % (Auto) (16.0-70.0) % Neut # (Auto) (1.8-7.7) th/mm3 Estimated GFR 77 L (>89) mL/min Random Glucose 71 L (74-106) mg/dL AST (15-37) U/L Troponin I (0.02-0.05) ng/mL Short CBC 06/03/18 06/04/18 Range/Units 12:43 06:24 WBC 13.9 H 8.3 (4.0-11.0) th/mm3 Hgb 15.9 13.4 D (13.0-17.0) gm/dL Hct 45.7 38.8 L (39.0-51.0) % Plt Count 345 245 (150-450) th/mm3 BMP 06/03/18 06/04/18 12:43 06:25 Sodium 136 138 Potassium 4.3 4.7 Chloride 104 103 Carbon Dioxide 24.1 27.6 BUN 17 16 Creatinine 1.11 1.00 Calcium 9.0 8.5 Cardiac Enzymes 06/03/18 06/03/18 06/03/18 Range/Units 12:43 12:43 16:51 Total Creatine Kinase 59 Cancelled 50 (39-308) U/L Troponin I Less than 0.02 L Less than 0.02 L (0.02-0.05) ng/mL Liver Function 06/03/18 06/04/18 Range/Units 12:43 06:25 Total Bilirubin 0.7 0.5 (0.2-1.0) mg/dL AST 8 L 17 (15-37) U/L ALT 20 14 (12-78) U/L Alkaline Phosphatase 58 49 (45-117) U/L Albumin 4.5 3.6 D (3.4-5.0) g/dL <Krystle Callahan - 06/04/18 11:24> - Imaging Impressions Chest X-Ray 06/03/18 12:35 CONCLUSION: No acute cardiopulmonary disease. <Krystle Callahan - 06/04/18 11:24> Physical Exam Vital signs: Vital Signs 06/03/18 16:00 06/03/18 20:00 06/03/18 20:48 Temperature 97.7 F Pulse Rate 64 Respiratory Rate 16 Blood Pressure 78/49 L 70/50 L Pulse Oximetry 97 98 06/03/18 23:01 06/04/18 00:00 06/04/18 04:00 Temperature 97.5 F L 97.8 F Pulse Rate 57 L 53 L 51 L Respiratory Rate 17 16 Blood Pressure 79/54 L 82/54 L Pulse Oximetry 99 100 06/04/18 08:00 06/04/18 12:00 Temperature 97.0 F L 97.9 F Pulse Rate 57 L 51 L Respiratory Rate 18 18 Blood Pressure 103/58 L 105/60 Pulse Oximetry 100 99 Intake & Output 06/03/18 06/04/18 06/04/18 18:59 06:59 18:59 Intake Total 1000 / 1000 Balance 1000 / 1000 Weight 86.183 kg Intake: IV 1000 / 1000 NS Inj 1,000 ML @ 1000 mls/hr 1000 / 1000 IV.SIG [facility] Rx#:[id number] Other: # Voids 2 Weight On Admission 86.183 kg <Mayank Pena - 06/04/18 15:20> Vital Signs 06/03/18 12:55 06/03/18 13:43 06/03/18 14:50 Temperature Pulse Rate 76 64 Respiratory Rate 19 18 Blood Pressure 108/81 111/56 L Pulse Oximetry 96 98 98 06/03/18 15:14 06/03/18 16:00 06/03/18 20:00 Temperature 97.7 F Pulse Rate 64 64 Respiratory Rate 18 16 Blood Pressure 119/68 78/49 L 70/50 L Pulse Oximetry 96 97 06/03/18 20:48 06/03/18 23:01 06/04/18 00:00 Temperature 97.5 F L Pulse Rate 57 L 53 L Respiratory Rate 17 Blood Pressure 79/54 L Pulse Oximetry 98 99 06/04/18 04:00 06/04/18 08:00 Temperature 97.8 F 97.0 F L Pulse Rate 51 L 51 L Respiratory Rate 16 18 Blood Pressure 82/54 L 103/58 L Pulse Oximetry 100 100 Intake & Output 06/03/18 06/04/18 06/04/18 18:59 06:59 18:59 Intake Total 1000 / 1000 Balance 1000 / 1000 Weight 86.183 kg Intake: IV 1000 / 1000 NS Inj 1,000 ML @ 1000 mls/hr 1000 / 1000 IV.SIG BOLUS [facility] Rx#:[id number] Other: # Voids 2 Weight On Admission 86.183 kg <Krystle Callahan - 06/04/18 11:24> Narrative: GENERAL: 58-year-old, well nourished, well developed male, sitting up in bed eating lunch. In no acute distress. SKIN: Warm and dry. No rash. HEAD: Atraumatic. Normocephalic. ENT: No nasal bleeding or discharge. Mucous membranes pink and moist. Airway patent. CARDIOVASCULAR: Regular rate and rhythm. No murmur. RESPIRATORY: No accessory muscle use. Clear to auscultation with equal breath sounds. No crackles, wheeze, rales or rhonchi. GASTROINTESTINAL: Abdomen soft, non-tender, nondistended. MUSCULOSKELETAL: Extremities without clubbing, cyanosis, or edema. NEUROLOGICAL: Awake and alert. No obvious cranial nerve deficits. Normal speech. PSYCHIATRIC: Appropriate mood and affect; insight and judgment normal. <Krystle Callahan - 06/04/18 15:09> Assessment and Plan - Assessment (1) Chest pain Code(s): R07.9 - Chest pain, unspecified Status: Acute (2) HTN (hypertension) Code(s): I10 - Essential (primary) hypertension Status: Chronic (3) Chronic back pain Code(s): M54.9 - Dorsalgia, unspecified; G89.29 - Other chronic pain Status: Chronic (4) Nutrition, metabolism, and development symptoms Code(s): R63.8 - Other symptoms and signs concerning food and fluid intake Status: Acute (5) DVT prophylaxis Status: Acute <Mayank Pena - 06/04/18 15:20> (1) Chest pain Code(s): R07.9 - Chest pain, unspecified Status: Acute Plan: Shocking sensation/shooting pain relieved. s/p loop recorder removal by Dr. Stewart. Patient received Ancef following procedure. Patient to be sent home with Keflex x7days per cardiology request. (2) HTN (hypertension) Code(s): I10 - Essential (primary) hypertension Status: Chronic Plan: Patient with history of hypertension. BP controlled. (3) Chronic back pain Code(s): M54.9 - Dorsalgia, unspecified; G89.29 - Other chronic pain Status: Chronic Plan: Patient with history of chronic back pain. Continue home medications. (4) Nutrition, metabolism, and development symptoms Code(s): R63.8 - Other symptoms and signs concerning food and fluid intake Status: Acute Plan: Fluids: Tolerating PO. Diet: Cardiac diet. Electrolytes: Monitor and replete as necessary. (5) DVT prophylaxis Status: Acute Plan: SCDs and compression hose. <Krystle Callahan - 06/04/18 14:57> - Assessment and Plan Discharge Planning: Today. <Krystle Callahan - 06/04/18 15:09> - Attending Attestation The exam, history, and the medical decision-making described in the above note were completed with the assistance of the resident physician. I reviewed and agree with the findings presented. I attest that I had a [id number] encounter with the patient on the same day, and personally performed and documented my assessment and findings in the medical record. hypotension improving, pain gone after loop removal. 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 ppx keflex x 7d discussed savanna exercises as he has vertigo with head movement. <Mayank Pena Gabriel - 06/04/18 15:20> <Krystle Callahan - Last Filed: 06/04/18 14:57> (1) Chest pain Qualifiers: Chest pain type: unspecified Qualified Code(s): R07.9 - Chest pain, unspecified <MarkrenaMayank Gabriel - Last Filed: 06/04/18 15:20> (1) Chest pain Qualifiers: Chest pain type: unspecified Qualified Code(s): R07.9 - Chest pain, unspecified (2) HTN (hypertension) Qualifiers: <LabelKrystle Leiva - Last Filed: 06/04/18 14:57> (1) Chest pain Qualifiers: Chest pain type: unspecified Qualified Code(s): R07.9 - Chest pain, unspecified <Mayank Pena - Last Filed: 06/04/18 15:20> (1) Chest pain Qualifiers: Chest pain type: unspecified Qualified Code(s): R07.9 - Chest pain, unspecified (2) HTN (hypertension) Qualifiers:
[2018-06-04 12:45] VITALS: BP 105/60; PULSE 51; TEMP 97.9; O2SAT 99
--- NOTE | 2018-06-04 23:36 | P.PNCA ---
Subjective Interval history: Loop recorder removed Patient feels better already with no longer feeling "shocking" feeling Medications and Allergies Allergies Allergy/AdvReac Type Severity Reaction Status Date / Time No Known Allergies Allergy Verified 06/03/18 12:57 Home Medications Medication Instructions Recorded Confirmed Type lisinopril 10 mg PO DAILY 11/19/17 06/03/18 History hydrocodone-acetaminophen [[place]] 1 tab PO Q6H PRN 01/25/18 06/03/18 History Physical Exam Vital signs: Vital Signs 06/04/18 00:00 06/04/18 04:00 06/04/18 08:00 Temperature 97.8 F 97.0 F L Pulse Rate 53 L 51 L 57 L Respiratory Rate 16 18 Blood Pressure 82/54 L 103/58 L Pulse Oximetry 100 100 06/04/18 12:00 Temperature 97.9 F Pulse Rate 51 L Respiratory Rate 18 Blood Pressure 105/60 Pulse Oximetry 99 Intake & Output 06/04/18 06/04/18 06/05/18 06:59 18:59 06:59 Intake Total 1000 / 1000 Balance 1000 / 1000 Intake: IV 1000 / 1000 NS Inj 1,000 ML @ 1000 mls/hr 1000 / 1000 IV.SIG BOLUS [facility] Rx#:[id number] Other: # Voids 2 Narrative: GENERAL: 58-year-old, well nourished, well developed male, sitting up in bed eating lunch. In no acute distress. SKIN: Warm and dry. No rash. HEAD: Atraumatic. Normocephalic. ENT: No nasal bleeding or discharge. Mucous membranes pink and moist. Airway patent. CARDIOVASCULAR: Regular rate and rhythm. No murmur. RESPIRATORY: No accessory muscle use. Clear to auscultation with equal breath sounds. No crackles, wheeze, rales or rhonchi. GASTROINTESTINAL: Abdomen soft, non-tender, nondistended. MUSCULOSKELETAL: Extremities without clubbing, cyanosis, or edema. NEUROLOGICAL: Awake and alert. No obvious cranial nerve deficits. Normal speech. PSYCHIATRIC: Appropriate mood and affect; insight and judgment normal. Results 06/04/18 06:24 06/04/18 06:25 Cardiac Enzymes 06/03/18 06/03/18 06/04/18 Range/Units 12:43 16:51 06:25 AST 8 L 17 (15-37) U/L Troponin I Less than 0.02 L Less than 0.02 L (0.02-0.05) ng/mL Coagulation 06/03/18 06/04/18 Range/Units 13:08 06:25 PT 10.8 10.2 (9.8-11.6) sec APTT 28.5 (23.4-31.7) sec CBC 06/03/18 06/04/18 Range/Units 12:43 06:24 WBC 13.9 H 8.3 (4.0-11.0) th/mm3 RBC 5.36 4.58 (4.50-5.90) mil/mm3 Hgb 15.9 13.4 D (13.0-17.0) gm/dL Hct 45.7 38.8 L (39.0-51.0) % Plt Count 345 245 (150-450) th/mm3 Neut # (Auto) 10.2 H 5.0 (1.8-7.7) th/mm3 Lymph # (Auto) 2.9 2.5 (1.0-4.8) th/mm3 [place] # (Auto) 0.6 0.5 (0.0-0.9) th/mm3 Eos # (Auto) 0.1 0.2 (0.0-0.4) th/mm3 Baso # (Auto) 0.1 0.1 (0.0-0.2) th/mm3 Comprehensive Metabolic Panel 06/03/18 06/04/18 Range/Units 12:43 06:25 Sodium 136 138 (136-145) meq/L Potassium 4.3 4.7 (3.5-5.1) meq/L Chloride 104 103 (98-107) meq/L Carbon Dioxide 24.1 27.6 (21.0-32.0) meq/L BUN 17 16 (7-18) mg/dL Creatinine 1.11 1.00 (0.60-1.30) mg/dL Calcium 9.0 8.5 (8.5-10.1) mg/dL AST 8 L 17 (15-37) U/L ALT 20 14 (12-78) U/L Alkaline Phosphatase 58 49 (45-117) U/L Total Protein 8.2 6.7 D (6.4-8.2) g/dL Albumin 4.5 3.6 D (3.4-5.0) g/dL - Imaging and Cardiology Imaging: Impressions Chest X-Ray 06/03/18 12:35 CONCLUSION: No acute cardiopulmonary disease. Assessment and Plan - Assessment (1) Atypical chest pain Code(s): R07.89 - Other chest pain Status: Acute (2) PFO (patent foramen ovale) Code(s): Q21.1 - Atrial septal defect Status: Chronic (3) Seizure disorder Code(s): G40.909 - Epilepsy, unspecified, not intractable, without status epilepticus Status: Chronic - Plan 1) Atypical chest pain Shocking feeling over distal portion of loop recorder with palpation Loop recorder removed Possible nerve hypersensitivity? After loop recorder removal no longer having the feeling 2) PFO s/p closure 3) Hx CVA with AFib Restart Eliquis tomorrow 4) Tobacco abuse Cessation 5) Cardiovascularly stable for discharge Discussed with primary team Plan for Keflex for 7 days
--- NOTE | 2018-06-05 00:40 | MR ---
cc: Jurgen Stewart DO DATE: 06/04/2018 PROCEDURE PERFORMED: Removal of [employer]onic Reveal LINQ loop recorder (model number LNQ11, serial number [id number]). ANESTHESIA: Moderate sedation, 15 minutes. PREPROCEDURE DIAGNOSIS: Possible hypersensitive nerve reaction to loop recorder. POSTPROCEDURE DIAGNOSIS: Removal of Med[employer]onic Reveal LINQ loop recorder. MEDICATIONS: Ancef 2 grams, Versed 0.5 mg, fentanyl 50 mcg. ESTIMATED BLOOD LOSS: 10 mL MODERATE SEDATION: 15 minutes. PROCEDURAL SUMMARY: Ty Spencer is a pleasant 58-year-old male who sees my partner, Dr. Greer, in the office and presented due to a shocking feeling from his loop recorder. Anytime the area at the distal portion of the loop recorder was attached, he had a sensation throughout his upper chest into his abdomen and down his legs. It is a possibility that this is due to a hypersensitivity of a nerve at the distal portion. He asked that the loop recorder be removed. He was noted to have atrial fibrillation on his loop recorder, which was placed due to a cryptogenic CVA. Risks, benefits, and alternatives were explained to him and he consented as such. He was prepped in the usual sterile fashion. A small incision was made over the medial portion of the loop recorder. Loop recorder was grasped and removed. Pressure was held for hemostasis. The patient tolerated the procedure well. HARDWARE REMOVED: Medtronic Reveal LINQ (model number LNQ11, serial number [id number]). IMPRESSIONS: 1. Possible hypersensitivity nerve reaction to the loop recorder. 2. Status post loop recorder removal. RECOMMENDATIONS: 1. Mr. Spencer had removal of his loop recorder due to possible hypersensitivity nerve reaction. 2. Palpation of the anterior wall shows no longer having the pain. 3. He will be discharged home on antibiotics for 7 days. Thank you for allowing me to see Ty Spencer. If there are any questions, please do not hesitate to call. Jurgen Stewart DO VGP/eb/rr , 11:41 PM , 11:47 PM
[2018-06-05] MEDS ORDERED: Lisinopril 10 MG Tablet PO SCH (09:00)
== END 2018-06-04 18:04 | disposition home or self-care (01) ==
LOC: NEDA 11:14 → NEPD 11:14 → NEPHCDU 15:45 → N04 06-04 11:44 → NEPHCDU 06-04 11:48
PROVIDERS: ADMIT Family Medicine; ATTEND Family Medicine
DX: R20.2 Paresthesia of skin; L40.9 Psoriasis, unspecified; Z79.01 Long term (current) use of anticoagulants; M06.9 Rheumatoid arthritis, unspecified; R00.2 Palpitations; R07.89 Other chest pain; G89.29 Other chronic pain; F17.210 Nicotine dependence, cigarettes, uncomplicated; I48.91 Unspecified atrial fibrillation; Z79.899 Other long term (current) drug therapy; R11.0 Nausea; Z86.73 Personal history of transient ischemic attack (TIA), and cerebral infarction without residual deficits; K21.9 Gastro-esophageal reflux disease without esophagitis; G40.909 Epilepsy, unspecified, not intractable, without status epilepticus; I10 Essential (primary) hypertension; Q21.1 Atrial septal defect
CPT/HCPCS: 33284; 33286; 71010; 71045; 80053; 82550; 84484; 85025; 85610; 85730; 90774; 90775; 90784; 93005; 96361; 96374; 96375; 96376; 99152; 99285; C8952; C9113; G0378; J0690; J2270; J2405; J7030